=== PATIENT | female | born 1935 | race Hispanic/Latino ===

== ENCOUNTER 2016-08-15 07:15 | Inpatient (IN) | payer MEDICARE ==
[2016-08-15 07:15] VITALS: BMI 19.5
--- NOTE | 2016-08-15 07:27 | C.PDOC ---
History Of Present Illness 80-year-old female, PMHx includes Anxiety, Hypertension, Hypercholesterolemia, Hypothyroidism, Osteoporosis, and Seizures, presents to the emergency department accompanied by , with complaints of abdominal pain. reports patient developed recurring epigastric and left-upper quadrant abdominal pain yesterday. Patient took Bentyl w/ transient relief, and pain returned last night and "it feels worse than usual", resulting in her coming to the ED for evaluation. Patient notes that she has had this pain for the past several months, and it is intermittent in nature. Denies nausea/vomiting, diarrhea, melena, hematochezia, back pain, fevers, chills, shortness of breath, chest pain, dizziness, or any other associated symptoms. No other complaints at this time. PMD Dr. Julianna Li GI Dr. Brown Time Seen by Provider: 08/15/16 07:17 Chief Complaint (Nursing): Abdominal Pain History Per: Patient History/Exam Limitations: no limitations Onset/Duration Of Symptoms: Days Current Symptoms Are (Timing): Still Present Severity: Moderate Location Of Pain/Discomfort: Epigastric, LUQ Past Medical History Reviewed: Historical Data, Nursing Documentation, Vital Signs Vital Signs: Last Vital Signs Temp 97.6 F 08/16/16 07:00 Pulse 59 L 08/16/16 07:00 Resp 16 08/16/16 07:00 BP 179/77 H 08/16/16 07:00 Pulse Ox 99 08/16/16 07:00 - Medical History PMH: Anxiety, HTN, Hypercholesterolemia, Hypothyroidism, Osteoporosis, Seizures (LAST 2 WEEKS AGO) Denies: Chronic Kidney Disease Surgical History: Back Surgery - [facility] Procedures COLONOSCOPY (07/25/14) ESOPHAGOGASTRODUODENOSCOPY [EGD] W/CLOSED BIOPSY (07/25/14) Family History: States: Unknown Family Hx - Social History Hx Tobacco Use: No Hx Alcohol Use: No Hx Substance Use: No - Immunization History Hx Tetanus Toxoid Vaccination: No Hx Influenza Vaccination: Yes Hx Pneumococcal Vaccination: No Review Of Systems Except As Marked, All Systems Reviewed And Found Negative. Constitutional: Negative for: Fever, Chills Cardiovascular: Negative for: Chest Pain Gastrointestinal: Positive for: Abdominal Pain. Negative for: Nausea, Vomiting Genitourinary: Negative for: Dysuria, Frequency, Vaginal Discharge, Vaginal Bleeding Musculoskeletal: Negative for: Back Pain Skin: Negative for: Rash Neurological: Negative for: Weakness, Numbness, Headache, Dizziness Physical Exam - Physical Exam Appears: Non-toxic, No Acute Distress Skin: Warm, Dry, No Rash Head: Atraumatic, Normacephalic Eye(s): bilateral: Normal Inspection Nose: Normal Oral Mucosa: Moist Lips: Normal Appearing Neck: Normal ROM Chest: Symmetrical Cardiovascular: Rhythm Regular Respiratory: Normal Breath Sounds, No Accessory Muscle Use Gastrointestinal/Abdominal: Soft, Tenderness (MILD, EPIGASTRIC AND LUQ), No Distention, No Guarding, No Rebound Extremity: Normal ROM Neurological/Psych: Oriented x3, Normal Speech ED Course And Treatment - Laboratory Results Result Diagrams: 08/16/16 08:30 08/16/16 08:30 ECG: Interpreted By Me, Viewed By Me ECG Rhythm: Sinus Rhythm ECG Interpretation: No Acute Changes Interpretation Of ECst degree AV block Rate From EC - CT Scan/US CT ABD/PEL Other Rad Studies (CT/US): Read By Radiologist, Radiology Report Reviewed CT/US Interpretation: Accession No. : [id number]. Patient Name / ID : PAULA Bueno / [id number]. Exam Date : 08/15/2016 10:03:03 ( Approved ) . Study Comment : Sex / Age : F / [id number]. Creator : Александр Wu MD. Dictator : Александр Wu MD. Burr Sander : Roading Engineer : Александр Wu MD. Approver2 : Report Date : 08/15/2016 10:57:31. My Comment : . PROCEDURE: CT Abdomen and Pelvis with contrast. HISTORY: abd pain. COMPARISON: 03/20/2016. CT scan abdomen and pelvis. Summary of findings on the comparison examination: Stable cystic lesion 4.9 cm in the pancreas. 2012. The cystic mass the pancreas on the prior study in 2012 measured 2.6 x 3.9 cm. TECHNIQUE: Contrast dose: 100 cc Visipaque 320. Radiation dose: Total exam DLP = 1015.99. MGy-cm. FINDINGS: LOWER THORAX: Unremarkable. LIVER: Unremarkable. No gross lesion or ductal dilatation. GALLBLADDER AND BILE DUCTS: Unremarkable. PANCREAS: Stable well-circumscribed cystic mass body of the pancreas 4.2 x 5.4 cm. The pancreatic duct distal to the mass is dilated. The pancreatic duct proximal to the cystic mass is normal. Findings likely represent well-formed pseudocyst, less likely consideration would be cystic pancreatic neoplasm. SPLEEN: Unremarkable. ADRENALS: Unremarkable. No mass. KIDNEYS AND URETERS: Unremarkable. No hydronephrosis. No solid mass. VASCULATURE: Unremarkable. No aortic aneurysm. BOWEL: Segmental thickening of the descending colon, mild and accentuated by underfilling of the left hemicolon which is collapse, oral contrast has not yet reached the descending colon. Findings likely represent mild segmental colitis. More proximally, the transverse colon is spared. Less extensive involvement identified in the sigmoid and rectum. APPENDIX: Normal appendix. PERITONEUM: Unremarkable. No free fluid. No free air. LYMPH NODES: Unremarkable. No enlarged lymph nodes. BLADDER: Unremarkable. REPRODUCTIVE: Unremarkable. BONES: No acute fracture. Scoliosis, secondary degenerative change at multiple levels. OTHER FINDINGS: None. IMPRESSION: Left nieves colitis, mildly extending from the descending colon to the rectum and sigmoid. No focal abnormalities/ drainable collections/free or loculated air associated with this finding. Stable cystic mass in the pancreas. The mass is unchanged compared to the most recent study from March 20, 2016 although it has increased in size from 2013. Moreover, there is mild dilatation of the pancreatic duct distal to the cystic mass. Medical Decision Making Medical Decision Making: still w persistent nausea despite IVF and multiple doses of antiemetics disc w Dr Olivier who will admit Disposition - Disposition Disposition: HOSPITALIZED Disposition Time: 13:19 Condition: STABLE - Clinical Impression Clinical Impression: Colitis - Scribe Statement The provider has reviewed the documentation as recorded by the Marium Carney All medical record entries made by the Marium were at my direction and personally dictated by me. I have reviewed the chart and agree that the record accurately reflects my personal performance of the history, physical exam, medical decision making, and the department course for this patient. I have also personally directed, reviewed, and agree with the discharge instructions and disposition.
[2016-08-15] MEDS ORDERED: Iohexol 240 (50 ml) ONE (07:38)
[2016-08-15 08:35] LABS: CHLORIDE 93 mmol/L (98-107); POTASSIUM 3.3 mmol/L (3.6-5.2); SODIUM 138 mmol/L (132-148)
[2016-08-15 08:37] LABS: ALB/GLOB RATIO 1.3 (1.0-2.1); ALKALINE PHOSPHATASE 58 U/L (38-126); AST/SGOT 22 U/L (14-36); BILIRUBIN,TOTAL 0.4 mg/dL (0.2-1.3); CARBON DIOXIDE 31 mmol/L (22-30); GFR AFRICAN-AMERICAN > 60
[2016-08-15 08:38] LABS: ALT/SGPT 12 U/L (9-52); BLOOD UREA NITROGEN 11 mg/dL (7-17); GLUCOSE,RANDOM 85 mg/dL (65-105)
[2016-08-15] MEDS ORDERED: Iohexol 240 (50 ml) PO ONE (09:31)
[2016-08-15 09:42] LABS: BASO % 0.6 % (0.0-2.0); EOS % 0.7 % (0.0-4.0); HEMATOCRIT 33.8 % (34.0-47.0); LYMPH # 0.8 K/uL (1.0-4.3); LYMPH % 29.6 % (20.0-40.0); MEAN CELL VOLUME 91.5 fL (81.0-99.0); MEAN CORPUSCULAR HGB CONC 32.8 g/dL (33.0-37.0); MEAN PLATELET VOLUME 7.1 fL (7.2-11.7); MONO # 0.3 K/uL (0.0-0.8); MONO % 11.7 % (0.0-10.0); NRBC % 0.1 % (0.0-2.0); RED CELL DISTRIBUTION WIDTH 13.3 % (11.5-14.5); WHITE BLOOD COUNT 2.6 K/uL (4.8-10.8)
[2016-08-15] MEDS ORDERED: Iodixanol 320 MG/ML 100 ML BOTTLE IV ONE (09:45)
[2016-08-15 10:14] LABS: RBC URINE 3 /hpf (0-3); URINE BACTERIA RARE (<OCC); URINE BILIRUBIN NEGATIVE (NEGATIVE); URINE BLOOD 1+ (NEGATIVE); URINE COLOR Straw (YELLOW); URINE GLUCOSE (UA) NORMAL (Normal); URINE KETONE NEGATIVE (NEGATIVE); URINE LEUKOCYTE ESTERASE TRACE Leu/uL (Negative); URINE PROTEIN NEGATIVE (NEGATIVE); URINE UROBILINOGEN NORMAL mg/dL (0.2-1.0); WBC URINE 2 /hpf (0-5)
--- NOTE | 2016-08-15 10:59 | CT ---
PROCEDURE: CT Abdomen and Pelvis with contrast HISTORY: abd pain COMPARISON: 03/20/2016. CT scan abdomen and pelvis. Summary of findings on the comparison examination: Stable cystic lesion 4.9 cm in the pancreas. 08/19/2012. The cystic mass the pancreas on the prior study in 2012 measured 2.6 x 3.9 cm. TECHNIQUE: Contrast dose: 100 cc Visipaque 320. Radiation dose: Total exam DLP = 1015.99. MGy-cm. FINDINGS: LOWER THORAX: Unremarkable. LIVER: Unremarkable. No gross lesion or ductal dilatation. GALLBLADDER AND BILE DUCTS: Unremarkable. PANCREAS: Stable well-circumscribed cystic mass body of the pancreas 4.2 x 5.4 cm. The pancreatic duct distal to the mass is dilated. The pancreatic duct proximal to the cystic mass is normal. Findings likely represent well-formed pseudocyst, less likely consideration would be cystic pancreatic neoplasm. SPLEEN: Unremarkable. ADRENALS: Unremarkable. No mass. KIDNEYS AND URETERS: Unremarkable. No hydronephrosis. No solid mass. VASCULATURE: Unremarkable. No aortic aneurysm. BOWEL: Segmental thickening of the descending colon, mild and accentuated by underfilling of the left hemicolon which is collapse, oral contrast has not yet reached the descending colon. Findings likely represent mild segmental colitis. More proximally, the transverse colon is spared. Less extensive involvement identified in the sigmoid and rectum. APPENDIX: Normal appendix. PERITONEUM: Unremarkable. No free fluid. No free air. LYMPH NODES: Unremarkable. No enlarged lymph nodes. BLADDER: Unremarkable. REPRODUCTIVE: Unremarkable. BONES: No acute fracture. Scoliosis, secondary degenerative change at multiple levels. OTHER FINDINGS: None. IMPRESSION: Left nieves colitis, mildly extending from the descending colon to the rectum and sigmoid. No focal abnormalities/ drainable collections/free or loculated air associated with this finding. Stable cystic mass in the pancreas. The mass is unchanged compared to the most recent study from March 20, 2016 although it has increased in size from 2012. Moreover, there is mild dilatation of the pancreatic duct distal to the cystic mass.
[2016-08-15] MEDS ORDERED: Sodium Chloride 0.9% 1,000 ML IV ONE (11:25)
[2016-08-15] MEDS ORDERED: Sodium Chloride 0.9% 1,000 ML ONE (12:13)
[2016-08-15] MEDS: Sodium Chloride 0.9% 1,000 ML IV SCH (14:47)
[2016-08-15] MEDS: Metoprolol Succinate 50 mg XL Tab PO SCH (15:27)
[2016-08-15] MEDS ORDERED: Potassium Chloride 20 mEq ER Tab PO ONE ×2 (17:00→19:15)
[2016-08-15] MEDS: Pantoprazole 40 mg EC Tab PO SCH (20:00)
[2016-08-15] MEDS: cefTRIAXone IV 1 gm in Dextros 50 ML IVPB SCH (20:15)
--- NOTE | 2016-08-15 22:52 | CP.PCM.CON ---
History of Present Illness - History of Present Illness History of Present Illness: INFECTIOUS DISEASE CONSULT. HPI: .80-year-old female with known history off HTN, hypercholesterolemia, hypothyroidism, osteoporosis, seizure disorder, and anxiety who presented to [facility] with abdominal pain which she states was worse than before for one day prior to admission. Patient took Bentyl and had transient relief but pain returned which made her come to the ER for further evaluation. Patient states she has this pain off and on for past several months and is intermittent in nature. Denies any nausea vomiting, diarrhea, melena or hematochezia. Patient denies any fever or chills. Denies any cough shortness of breath, dizziness or any other associated symptoms at this time. PATIENT DENIES ANY LOSS OF WEIGHT, NIGHT SWEATS OR LOSS OF APPETITE. CT of the abdomen and pelvis with by mouth and IV contrast was obtained which showed left nieves-colitis extending from the descending colon to the rectum/ sigmoid. No drainable abscess or collection was seen. Cystic mass of size 2.6 into 3.9 cm was seen in pancreas which has been stable since last examination of March 20, 2016. Mild dilatation of pancreatic duct distal to the cystic mass was noted. Patient was empirically started on IV Rocephin once a day daily. INFECTIOUS DISEASE CONSULTATION REQUESTED BY PMD FOR ACUTE DIVERTICULITIS. PMH: Anxiety, HTN, Hypercholesterolemia, Hypothyroidism, Osteoporosis, Seizures (LAST 2 WEEKS AGO) Denies: Chronic Kidney Disease Surgical History: Back Surgery - [facility] Procedures COLONOSCOPY (07/25/14) ESOPHAGOGASTRODUODENOSCOPY [EGD] W/CLOSED BIOPSY (07/25/14) Family History: States: Unknown Family Hx - Social History Hx Tobacco Use: No Hx Alcohol Use: No Hx Substance Use: No - Immunization History Hx Tetanus Toxoid Vaccination: No Hx Influenza Vaccination: Yes Hx Pneumococcal Vaccination: No Review of Systems - Constitutional Constitutional: absent: Chills, Fever, Weight Loss - EENT Nose/Mouth/Throat: Dry Mouth. absent: Mouth Lesions - Breasts Breasts: absent: Nipple Discharge, Skin Changes - Cardiovascular Cardiovascular: absent: Chest Pain, Pedal Edema - Respiratory Respiratory: absent: Cough, Dyspnea, Hemoptysis, Change in Mucous Color - Gastrointestinal Gastrointestinal: Abdominal Pain (LOWER ABDOMINAL PAIN.). absent: Constipation , Diarrhea, Nausea, Vomiting - Genitourinary Genitourinary: absent: Dysuria, Freq UTI - Menstruation Menstruation: Post Menopausal - Neurological Neurological: absent: Dizziness, Headaches - Psychiatric Psychiatric: Anxiety - Hematologic/Lymphatic Hematologic: As Per HPI. absent: Easy Bleeding, Easy Bruising Past Patient History - Infectious Disease Hx of Infectious Diseases: None - Past Medical History & Family History Past Medical History?: Yes - Past Social History Smoking Status: Never Smoked - CARDIAC Hx Hypercholesterolemia: Yes Hx Hypertension: Yes - PULMONARY Hx Respiratory Disorders: No - NEUROLOGICAL Hx Seizures: Yes (LAST 2 WEEKS AGO) - HEENT Hx HEENT Problems: No - RENAL Hx Chronic Kidney Disease: No - ENDOCRINE/METABOLIC Hx Hypothyroidism: Yes - HEMATOLOGICAL/ONCOLOGICAL Hx Blood Disorders: No - INTEGUMENTARY Hx Dermatological Problems: No - MUSCULOSKELETAL/RHEUMATOLOGICAL Hx Osteoporosis: Yes - GASTROINTESTINAL Hx Gastrointestinal Disorders: Yes Hx Gastroesophageal Reflux: Yes Other/Comment: LUQ ABDOMINAL PAIN; NAUSEA, dizziness - PSYCHIATRIC Hx Anxiety: Yes Hx Substance Use: No - SURGICAL HISTORY Hx Surgeries: Yes Hx Musculoskeletal Surgery: Yes (2 BACK SURGERIES 30 YRS. AGO) - ANESTHESIA Hx Anesthesia: Yes Hx Anesthesia Reactions: No Hx Malignant Hyperthermia: No Meds Allergies/Adverse Reactions: Allergies Allergy/AdvReac Type Severity Reaction Status Date / Time Sulfa (Sulfonamide AdvReac Intermediate NAUSEA Verified 08/15/16 07:30 Antibiotics) - Medications Medications: Current Medications Alprazolam (Xanax) 0.25 mg PO DAILY PRN PRN Reason: Anxiety Stop: 08/22/16 15:11 Last Admin: 08/15/16 15:27 Dose: 0.25 mg Aspirin (Aspirin Chewable) 81 mg PO DAILY [facility] Enoxaparin Sodium (Lovenox) 40 mg SC DAILY [facility] Home Med (Fosamax) 1 tab PO QWK [facility] Sodium Chloride (Sodium Chloride 0.9%) 1,000 mls @ 100 mls/hr IV .Q10H [facility] Last Admin: 08/15/16 14:47 Dose: 100 mls/hr Ceftriaxone Sodium (Rocephin Iv 1 Gm Duplex) 50 mls @ 100 mls/hr IVPB Q24H [facility] Influenza Virus Vaccine (Afluria) 45 mcg IM .ONCE ONE Stop: 08/16/16 10:01 Lamotrigine (Lamictal) 200 mg PO BID [facility] Levothyroxine Sodium (Synthroid) 25 mcg PO DAILY@0630 [facility] Losartan Potassium (Cozaar) 50 mg PO HS [facility] Last Admin: 08/15/16 15:27 Dose: 50 mg Metoprolol Succinate (Toprol Xl) 50 mg PO DAILY [facility] Last Admin: 08/15/16 15:27 Dose: 50 mg Pantoprazole Sodium (Protonix Ec Tab) 40 mg PO DAILY [facility] Pneumococcal Polyvalent Vaccine (Pneumovax 23 Vaccine) 0.5 ml IM .ONCE ONE Stop: 08/16/16 10:01 Rosuvastatin Calcium (Crestor) 5 mg PO HS [facility] Sucralfate (Carafate Tab) 1 gm PO DAILY [facility] Physical Exam - Constitutional Appears: No Acute Distress - Head Exam Head Exam: NORMAL INSPECTION - Eye Exam Eye Exam: EOMI, PERRL - ENT Exam ENT Exam: Mucous Membranes Dry, Normal Oropharynx - Neck Exam Neck exam: Positive for: Normal Inspection - Respiratory Exam Respiratory Exam: Clear to Auscultation Bilateral - Cardiovascular Exam Cardiovascular Exam: REGULAR RHYTHM, +S1, +S2 - GI/Abdominal Exam GI & Abdominal Exam: Normal Bowel Sounds, Soft, Tenderness (LEFT LOWER QUADRANT. ). absent: Mass - Extremities Exam Extremities exam: Negative for: calf tenderness, pedal edema - Psychiatric Exam Psychiatric exam: Normal Mood - Skin Skin Exam: Normal Color, Warm Results - Vital Signs Recent Vital Signs: Last Vital Signs Temp 97.4 F L 08/15/16 15:00 Pulse 66 08/15/16 20:07 Resp 20 08/15/16 15:00 BP 180/81 H 08/15/16 15:00 Pulse Ox 99 08/15/16 15:00 - Labs Result Diagrams: 08/16/16 08:30 08/16/16 08:30 - Imaging and Cardiology CT scan - abdomen Status: Report reviewed by me (SEE REPORT) Assessment & Plan (1) Colitis Assessment and Plan: PANCULTURES STOOLS FOR OCCULT BLOOD. STARTED ON iv ROCEPHIN 1 G ONCE A DAY DAILY 08/15/16 ADD iv fLAGYL 250 MG EVERY 8 HOURLY FOR NOW FOR ANAEROBIC COVERAGE. 08/15/16 FOLLOW-UP BLOOD WORKS ORDERED. Status: Acute (2) Abdominal pain Status: Acute (3) Leukopenia Assessment and Plan: PATIENT HAS LEUKOPENIA wbc 2.6 pATIENT STARTED ON ANTIBIOTICS. fOLLOW-UP cbc IN A.M. Status: Acute (4) Labile hypertension Status: Acute (5) Low back pain Status: Acute (6) Cystic mass of pancreas Assessment and Plan: PATIENT HAS A STABLE CYSTIC MASS 2.6 CM X 3.9 CM IN PANCREAS UNCHANGED FROM CT SCAN OF MARCH 20, 2016. THERE IS MILD DILATATION OF PANCREATIC DUCT,DISTAL TO THE CYSTIC MASS. WILL DISCUSS WITH ATTENDING. CLOSE FOLLOW-UP/AND MONITOR ANY CHANGE IN SYMPTOMS. fOLLOW-UP SERUM LIPASE/AMYLASE IN A.M. Status: Acute
--- NOTE | 2016-08-15 23:55 | CP.PCM.HP ---
History of Present Illness - History of Present Illness History of Present Illness: COMPREHENSIVE HISTORY & PHYSICAL EXAM HPI ADMITTED FROM ER WITH LEFT SIDED ABD. PAIN , INCREASED IN INSTENSITY FROM 1 WEEK NOT A/W NAUSEA/VOMITING OR GI BLEEDING CT ABD. REVEALED LEFT DESCENDING COLITIS AND ADMITTED FOR FURTHER TREATMENT PAST HIST. HTN/HYPERRCHOLESTEROL/SEIZURES/BACK PAIN / PERSONAL HIST: Smoking. N Alcohol. N Allergy N Travel_- . FAMILY HIST : ROS : Constitutional: Negative for weight change, chills, night sweats, Eyes: Negative for redness, swelling, itching, discharge, vision changes, blurry vision, double vision, glaucoma, cataracts, Ears: Negative for hearing loss, ringing, , tinnitus, vertigo Nose: Negative for rhinorrhea, stuffiness, sniffing, itching, postnasal drip, discoloration, nasal congestion and epistaxis. Throat: Negative for throat clearing, sore throat, hoarseness, difficulty swallowing and difficulty speaking. Respiratory: Negative for cough, chest tightness, sputum or phlegm, chronic cough, hemoptysis, wheezing, snoring at night, pleuritic chest pain and daytime somnolence. Cardiovascular: Negative for chest pain, palpitations, orthopnea, PND, Edema of legs, leg cramps, angina, claudication, , irregular heartbeat, Neurology: Negative for irritability, muscle weakness, numbness and tingling, seizures, tremors, migraines, slurred speech, syncope, memory loss, mood changes , recurrent headaches Gastrointestinal: Negative for difficulty swallowing, diarrhea, constipation, black stools, rectal bleeding, nausea, flatulence, reflux, poor appetite, changes in bowel habits POS LEFT , abdominal pain Genitourinary: Negative for frequent urination, hematuria, discharge, incontinence, urinary retention, frequent UTI, Psychiatric: Negative for depression, anxiety/panic, suicidal tendencies, Musculoskeletal: Negative for swollen joints, back pain, , neck pain, morning stiffness of joints, . Skin: Negative for rash, ulcers, itching, dry skin and pigmented lesions. P/E: Constitutional: Appears stated age and in no apparent distress. Head: Normocephalic. Ears: External ear canals patent without inflammation. Tympanic membranes intact with normal light reflex and landmark. Eyes: Pupils are central, bilaterally equal, symmetrical and reacts to light with normal movements and no icterus or pallor. Nose: External nares are patent. Mucosa is pink Mouth-Throat: Good general appearance and condition. No post-pharyngeal/oropharyngeal erythema and tonsillar hypertrophy. Good dental hygiene. Neck-Lymphatic: Neck is supple with normal ROM, no thyromegaly, lymph nodes or masses. JVD is normal with no carotid bruit. Lungs: Clear to percussion and auscultation with bilateral normal air entry. Cardiovascular: S1 and S2 are normal with no murmurs, gallops and rub. GI Exam: No hepatomegaly. Abdomen is soft and TENDERNESS IN LEFT LOWER QUAD. . No Organomegaly , masses or hernias are evident and bowel sounds are normal and active. Neurology: Higher function and all cranial nerves intact, with no gross motor or sensory deficit. Superficial and deep reflexes are normal with downwards planters. No cerebellar deficit with normal gait. Musculoskeletal: No tender spots with normal curvature of the spine with no swelling or restricted ROM of the small and large joints. Extremities: Homans sign absent. Intact pulses with no pitting edema, calf tenderness or skin color changes. Skin: No rash, eruptions or abnormal skin pigmentation LAB/RADIOLOGY: ASSESMENT : LEFT DESCENDING COLITIS HTN PANCREATIC CYST, UNCHANGED FROM 2015 Past Patient History - Infectious Disease Hx of Infectious Diseases: None - Past Medical History & Family History Past Medical History?: Yes - Past Social History Smoking Status: Never Smoked - CARDIAC Hx Hypercholesterolemia: Yes Hx Hypertension: Yes - PULMONARY Hx Respiratory Disorders: No - NEUROLOGICAL Hx Seizures: Yes (LAST 2 WEEKS AGO) - HEENT Hx HEENT Problems: No - RENAL Hx Chronic Kidney Disease: No - ENDOCRINE/METABOLIC Hx Hypothyroidism: Yes - HEMATOLOGICAL/ONCOLOGICAL Hx Blood Disorders: No - INTEGUMENTARY Hx Dermatological Problems: No - MUSCULOSKELETAL/RHEUMATOLOGICAL Hx Osteoporosis: Yes - GASTROINTESTINAL Hx Gastrointestinal Disorders: Yes Hx Gastroesophageal Reflux: Yes Other/Comment: LUQ ABDOMINAL PAIN; NAUSEA, dizziness - PSYCHIATRIC Hx Anxiety: Yes Hx Substance Use: No - SURGICAL HISTORY Hx Surgeries: Yes Hx Musculoskeletal Surgery: Yes (2 BACK SURGERIES 30 YRS. AGO) - ANESTHESIA Hx Anesthesia: Yes Hx Anesthesia Reactions: No Hx Malignant Hyperthermia: No Meds Allergies/Adverse Reactions: Allergies Allergy/AdvReac Type Severity Reaction Status Date / Time Sulfa (Sulfonamide AdvReac Intermediate NAUSEA Verified 08/15/16 07:30 Antibiotics) Results - Vital Signs Recent Vital Signs: Last Vital Signs Temp 97.4 F L 08/15/16 15:00 Pulse 66 08/15/16 20:07 Resp 20 08/15/16 15:00 BP 180/81 H 08/15/16 15:00 Pulse Ox 99 08/15/16 15:00 - Labs Result Diagrams: 08/16/16 08:30 08/16/16 08:30
[2016-08-15] MEDS: metroNIDAZOLE IV 500 mg/100 ml 250 MG in Premixed IV 1 EA IVPB SCH (23:56)
[2016-08-16] MEDS: metroNIDAZOLE IV 500 mg/100 ml 250 MG in Premixed IV 1 EA IVPB SCH ×3 (05:47→21:35)
[2016-08-16] MEDS: Levothyroxine 25 MCG TAB PO SCH (05:47)
[2016-08-16 08:47] LABS: BASO % 0.4 % (0.0-2.0); EOS % 0.5 % (0.0-4.0); HEMATOCRIT 36.8 % (34.0-47.0); LYMPH # 0.7 K/uL (1.0-4.3); LYMPH % 21.1 % (20.0-40.0); MEAN CELL VOLUME 91.7 fL (81.0-99.0); MEAN CORPUSCULAR HEMOGLOBIN 30.2 pg (27.0-31.0); MEAN PLATELET VOLUME 7.2 fL (7.2-11.7); MONO # 0.2 K/uL (0.0-0.8); MONO % 7.9 % (0.0-10.0); NRBC % 0.1 % (0.0-2.0); RED CELL DISTRIBUTION WIDTH 13.2 % (11.5-14.5); WHITE BLOOD COUNT 3.1 K/uL (4.8-10.8)
[2016-08-16 09:05] LABS: CHLORIDE 95 mmol/L (98-107); POTASSIUM 3.9 mmol/L (3.6-5.2); SODIUM 137 mmol/L (132-148)
[2016-08-16 09:07] LABS: GFR AFRICAN-AMERICAN > 60
[2016-08-16 09:08] LABS: ALB/GLOB RATIO 1.2 (1.0-2.1); ALKALINE PHOSPHATASE 60 U/L (38-126); ALT/SGPT 16 U/L (9-52); AST/SGOT 28 U/L (14-36); BILIRUBIN,TOTAL 0.8 mg/dL (0.2-1.3); BLOOD UREA NITROGEN 6 mg/dL (7-17); CARBON DIOXIDE 29 mmol/L (22-30); GLUCOSE,RANDOM 77 mg/dL (65-105); TOTAL PROTEIN 7.3 g/dL (6.3-8.3)
[2016-08-16 09:09] LABS: CALCIUM 8.6 mg/dl (8.6-10.4)
[2016-08-16] MEDS ORDERED: Influenza Virus Vaccine 45 mcg/0.5 ml Syr IM ONE (10:00)
[2016-08-16] MEDS ORDERED: Enoxaparin 40 mg Syringe SC SCH (10:00)
[2016-08-16] MEDS ORDERED: Pantoprazole 40 mg EC Tab PO SCH (10:00)
[2016-08-16] MEDS ORDERED: Pneumococcal 23-Valent Vaccine IM ONE (10:00)
[2016-08-16] MEDS: Pantoprazole 40 mg EC Tab PO SCH (10:16)
[2016-08-16] MEDS: Metoprolol Succinate 50 mg XL Tab PO SCH (10:16)
[2016-08-16] MEDS: Sodium Chloride 0.9% 1,000 ML IV SCH ×3 (10:25→18:32)
--- NOTE | 2016-08-16 13:51 | CP.PCM.PN ---
Subjective - Date & Time of Evaluation Date of Evaluation: 08/16/16 Time of Evaluation: 13:49 - Subjective Subjective: CHIEF COMPLAINTS TODAY : LLQ PAIN WITH BACK PAIN ROS. HEENT : N. Resp : No cough, wheezing ,pleuritic CP ,or hemoptysis Cardio : No anginal CP, PND, orthopnea, palpitation GI : POS abd.pain, NO n/v ,diarrhea or GI bleeding . [employer] : No headache, vertigo, focal deficit. Musculoskel : No joint swelling , Derm : No rash Psych : Normal affect. Ext : No swelling ,calf pain PE. Pt. is alert awake in no distress. V.S As noted in the chart Head ,ear nose,throat and eyes : Normal. Neck : Supple with normal carotids. Lungs: Clear air entry. Heart : S1 & S2 normal with S4. No murmur. Abd : Soft tender LLQ with normal bowel sounds. Neuro : Moves all ext. with no localized deficit. Ext : No edema with intact pulses.Non tender calves Derm : No rashes or decubitus ulcer. LABS/RADIOLOGY: ASSESSMENT/PLAN : CONT IV AB Objective - Vital Signs/Intake and Output Vital Signs (last 24 hours): Temp Pulse Resp BP Pulse Ox 97.6 F 59 L 16 179/77 H 99 08/16/16 07:00 08/16/16 07:00 08/16/16 07:00 08/16/16 07:00 08/16/16 07:00 Intake and Output: 08/16/16 08/16/16 11:59 23:59 Intake Total 1040 Balance 1040 - Medications Medications: Current Medications Alprazolam (Xanax) 0.25 mg PO DAILY PRN PRN Reason: Anxiety Stop: 08/22/16 15:11 Last Admin: 08/15/16 15:27 Dose: 0.25 mg Aspirin (Aspirin Chewable) 81 mg PO DAILY [facility] Last Admin: 08/16/16 10:16 Dose: 81 mg Enoxaparin Sodium (Lovenox) 40 mg SC DAILY [facility] Last Admin: 08/16/16 10:16 Dose: 40 mg Home Med (Fosamax) 1 tab PO QWK [facility] Sodium Chloride (Sodium Chloride 0.9%) 1,000 mls @ 100 mls/hr IV .Q10H [facility] Last Admin: 03/25/17 10:25 Dose: Not Given Ceftriaxone Sodium (Rocephin Iv 1 Gm Duplex) 50 mls @ 100 mls/hr IVPB Q24H [facility] Last Admin: 08/15/16 20:15 Dose: 100 mls/hr Metronidazole 250 mg/ (Miscellaneous) 50 mls @ 100 mls/hr IVPB Q8 [facility] Last Admin: 08/16/16 05:47 Dose: 100 mls/hr Lamotrigine (Lamictal) 200 mg PO BID [facility] Last Admin: 08/16/16 10:16 Dose: 200 mg Levothyroxine Sodium (Synthroid) 25 mcg PO DAILY@0630 [facility] Last Admin: 08/16/16 05:47 Dose: 25 mcg Losartan Potassium (Cozaar) 50 mg PO HS [facility] Last Admin: 08/15/16 22:00 Dose: 50 mg Metoprolol Succinate (Toprol Xl) 50 mg PO DAILY [facility] Last Admin: 08/16/16 10:16 Dose: 50 mg Pantoprazole Sodium (Protonix Ec Tab) 40 mg PO DAILY [facility] Last Admin: 08/16/16 10:16 Dose: 40 mg Rosuvastatin Calcium (Crestor) 5 mg PO HS [facility] Sucralfate (Carafate Tab) 1 gm PO DAILY [facility] Last Admin: 08/16/16 10:16 Dose: 1 gm - Labs Labs: 08/16/16 08:30 08/16/16 08:30
--- NOTE | 2016-08-16 13:55 | CP.PCM.PN ---
Subjective - Date & Time of Evaluation Date of Evaluation: 08/16/16 Time of Evaluation: 13:55 - Subjective Subjective: CHIEF COMPLAINTS TODAY : C/O ABDOMINAL PAIN pain comes in spasms starts in mid abdomen to LLQ states also wt loss -10 lbs since last 1 year ROS. HEENT : N. Resp : No cough, wheezing ,pleuritic CP ,or hemoptysis Cardio : No anginal CP, PND, orthopnea, palpitation GI : POS abd.pain, NO n/v ,diarrhea or GI bleeding . 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 Musculoskel : No joint swelling , Derm : No rash Psych : Normal affect. Ext : No swelling ,calf pain PE. Pt. is alert awake in no distress. V.S As noted in the chart Head ,ear nose,throat and eyes : Normal. Neck : Supple with normal carotids. Lungs: Clear air entry. Heart : S1 & S2 normal with S4. No murmur. Abd : Soft TENDER MID ABDOMEN / LLQ with normal bowel sounds. NO MASSES PALPABLE. Neuro : Moves all ext. with no localized deficit. Ext : No edema with intact pulses.Non tender calves Derm : No rashes or decubitus ulcer. Objective - Vital Signs/Intake and Output Vital Signs (last 24 hours): Temp Pulse Resp BP Pulse Ox 97.6 F 59 L 16 179/77 H 99 08/16/16 07:00 08/16/16 07:00 08/16/16 07:00 08/16/16 07:00 08/16/16 07:00 Intake and Output: 08/16/16 08/16/16 06:59 18:59 Intake Total 2140 Balance 2140 - Medications Medications: Current Medications Alprazolam (Xanax) 0.25 mg PO DAILY PRN PRN Reason: Anxiety Stop: 08/22/16 15:11 Last Admin: 08/15/16 15:27 Dose: 0.25 mg Aspirin (Aspirin Chewable) 81 mg PO DAILY [facility] Last Admin: 08/16/16 10:16 Dose: 81 mg Enoxaparin Sodium (Lovenox) 40 mg SC DAILY [facility] Last Admin: 08/16/16 10:16 Dose: 40 mg Home Med (Fosamax) 1 tab PO QWK [facility] Sodium Chloride (Sodium Chloride 0.9%) 1,000 mls @ 100 mls/hr IV .Q10H [facility] Last Admin: 08/16/16 10:25 Dose: Not Given Ceftriaxone Sodium (Rocephin Iv 1 Gm Duplex) 50 mls @ 100 mls/hr IVPB Q24H [facility] Last Admin: 08/15/16 20:15 Dose: 100 mls/hr Metronidazole 250 mg/ (Miscellaneous) 50 mls @ 100 mls/hr IVPB Q8 [facility] Last Admin: 08/16/16 05:47 Dose: 100 mls/hr Lamotrigine (Lamictal) 200 mg PO BID [facility] Last Admin: 08/16/16 10:16 Dose: 200 mg Levothyroxine Sodium (Synthroid) 25 mcg PO DAILY@0630 [facility] Last Admin: 08/16/16 05:47 Dose: 25 mcg Losartan Potassium (Cozaar) 50 mg PO HS [facility] Last Admin: 08/15/16 22:00 Dose: 50 mg Metoprolol Succinate (Toprol Xl) 50 mg PO DAILY [facility] Last Admin: 08/16/16 10:16 Dose: 50 mg Pantoprazole Sodium (Protonix Ec Tab) 40 mg PO DAILY [facility] Last Admin: 08/16/16 10:16 Dose: 40 mg Rosuvastatin Calcium (Crestor) 5 mg PO [facility] Sucralfate (Carafate Tab) 1 gm PO DAILY [facility] Last Admin: 08/16/16 10:16 Dose: 1 gm - Labs Labs: 08/16/16 08:30 08/16/16 08:30 Assessment and Plan (1) Colitis Assessment & Plan: continue ON iv ROCEPHIN 1 G ONCE A DAY DAILY 08/15/16 on iv fLAGYL 250 MG EVERY 8 HOURLY FOR NOW FOR ANAEROBIC COVERAGE. 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 Status: Acute (2) Abdominal pain Status: Acute (3) Cystic mass of pancreas Assessment & Plan: CT ABDOMEN /PELVIS : Cystic mass of size 2.6 into 3.9 cm was seen in pancreas which has been stable since last examination of March 20, 2016. Mild dilatation of pancreatic duct distal to the cystic mass was noted. GI EVAL ! WILL DISCUSS WITH PMD. Status: Acute (4) Leukopenia Assessment & Plan: PATIENT HAS LEUKOPENIA wbc 2.6 pATIENT STARTED ON ANTIBIOTICS. WBC INCREASED TO 3.1 Status: Acute (5) Labile hypertension Status: Acute (6) Low back pain Status: Acute
--- NOTE | 2016-08-16 13:55 | CON ---
DATE: 08/16/2016 REASON FOR THE CONSULTATION: Seizures. CHIEF COMPLAINT: The patient was admitted with a history of abdominal pain related to her food intak e. I was called in to assess her seizure status. HISTORY OF PRESENT ILLNESS: The patient is a 80-year-old right-handed thinly built female w ho is known to me for more than 15 years, been under medication for her seizures, has been stable wit h the current medication. She was admitted with abdominal discomfort following greasy food or high c arbohydrate content food. At present, she is complaining of some nausea and stomach discomfort. PAST MEDICAL HISTORY: Colitis, seizures. PERSONAL HISTORY: Denies smoking or alcohol use. ALLERGIES: No known allergies. MEDICATIONS: Aspirin, Carafate, Cozaar, Crestor, Lamictal, Lovenox, metronidazole, Protonix, Rocephi n, Synthroid, metoprolol, and Xanax. PHYSICAL EXAMINATION: VITAL SIGNS: Blood pressure 110/77, mean arterial pressure 111, respiratory rate 16, temperature 97. 6, pulse rate regular. NECK: Supple. No carotid bruit. HEART: Sounds regular. CHEST: Fair air entry. EXTREMITIES: No edema in legs. NEUROLOGIC EXAMINATION: MENTAL STATUS EXAMINATION: She is awake, alert, oriented to person, place, and time. Speech is michelle r. Naming, repetition, fluency, comprehension all within normal. CRANIAL NERVE EXAMINATION: Visual field intact. Pupil reactive to light. Extraocular movements are normal. No nystagmus, no facial sensory deficit, no facial asymmetry. Hearing is normal. Tongue i s midline. Good gag. MOTOR EXAMINATION: Outstretched hands with eyes closed, no drift noted. Power is symmetric on eithe r side. DEEP TENDON REFLEXES: Biceps, brachioradialis, triceps 1+, both knees are 1+. Both ankles are absen t. Plantars are downgoing. SENSORY EXAMINATION: Grossly intact. No cortical sensory loss. COORDINATION: Padmtq-xdmr-ieegcy test is intact. GAIT: Deferred at this time. CONCLUSION: Upon reviewing her history and neurological examination, the patient is presenting with abdominal discomfort related to her underlying colitis. However, from neurological point of view, sh e is stable with her current medication. WORKUP: WBC 3.1, hemoglobin 12.1, hematocrit 36.8, platelet 209. Sodium 137, potassium 3.9, chlorid e 95, bicarbonate 29, BUN 6, creatinine 0.6, GFR more than 70, lipase 521. Urine 1+ blood. RECOMMENDATIONS: 1. Continue the present management, proper hydration. 2. Lamictal should be continued as current dosage. From neurological point of view, no further workup is needed. The patient will be followed closely w ольга alvarez while she is in the hospital from a neurological point of view. Jeremy Baird MD cc: [id number] TT: 08/16/2016 13:53:53 Confirmation # [id number] Dictation # [id number] linda
[2016-08-16] MEDS: cefTRIAXone IV 1 gm in Dextros 50 ML IVPB SCH (20:16)
[2016-08-17] MEDS: Sodium Chloride 0.9% 1,000 ML IV SCH ×3 (05:50→21:29)
[2016-08-17] MEDS: metroNIDAZOLE IV 500 mg/100 ml 250 MG in Premixed IV 1 EA IVPB SCH ×3 (06:25→21:29)
[2016-08-17] MEDS: Levothyroxine 25 MCG TAB PO SCH (06:34)
--- NOTE | 2016-08-17 06:45 | CARD ---
APPROVED REPORT EKG Measurement Heart [id number] <Conclusion> Sinus rhythm with 1st degree AV block Otherwise normal ECG
[2016-08-17 07:43] LABS: BASO % 0.5 % (0.0-2.0); EOS % 0.2 % (0.0-4.0); HEMATOCRIT 38.6 % (34.0-47.0); LYMPH # 0.8 K/uL (1.0-4.3); LYMPH % 16.9 % (20.0-40.0); MEAN CELL VOLUME 91.1 fL (81.0-99.0); MEAN CORPUSCULAR HEMOGLOBIN 30.5 pg (27.0-31.0); MEAN CORPUSCULAR HGB CONC 33.5 g/dL (33.0-37.0); MONO # 0.4 K/uL (0.0-0.8); MONO % 7.8 % (0.0-10.0); RED CELL DISTRIBUTION WIDTH 13.5 % (11.5-14.5)
[2016-08-17 08:19] LABS: CHLORIDE 95 mmol/L (98-107); POTASSIUM 3.6 mmol/L (3.6-5.2); SODIUM 135 mmol/L (132-148)
[2016-08-17 08:21] LABS: AST/SGOT 31 U/L (14-36); BILIRUBIN,TOTAL 0.6 mg/dL (0.2-1.3); CARBON DIOXIDE 23 mmol/L (22-30); GFR AFRICAN-AMERICAN > 60
[2016-08-17 08:22] LABS: ALB/GLOB RATIO 1.2 (1.0-2.1); ALKALINE PHOSPHATASE 66 U/L (38-126); ALT/SGPT 8 U/L (9-52); BLOOD UREA NITROGEN 5 mg/dL (7-17); CALCIUM 9.3 mg/dl (8.6-10.4); GLUCOSE,RANDOM 107 mg/dL (65-105); TOTAL PROTEIN 7.9 g/dL (6.3-8.3)
[2016-08-17] MEDS: Pantoprazole 40 mg EC Tab PO SCH (11:13)
[2016-08-17] MEDS: Metoprolol Succinate 50 mg XL Tab PO SCH (11:16)
[2016-08-17] MEDS: Enoxaparin 60 mg Syringe SC SCH (11:33)
--- NOTE | 2016-08-17 13:31 | PN ---
DATE: 08/17/2016 NEUROLOGICAL PROBLEM: Partial complex seizures. PHYSICAL EXAMINATION: VITAL SIGNS: Blood pressure 203/100, mean arterial pressure 134, respiratory rate 18, temperature 98 .1. Pulse rate is 73, regular. NEUROLOGIC: The patient is comfortably sitting in the chair. No new complaints. Tolerating okay with current medication for stomach pain and colitis. Her blood pressure is somewhat increased at this time. RECOMMENDATIONS: Blood pressure treatment as per her primary care physician. Continue the present m anagement. Jeremy Baird MD cc: [id number] TT: 08/17/2016 13:30:56 Confirmation # [id number] Dictation # [id number] en
--- NOTE | 2016-08-17 14:27 | CP.PCM.PN ---
Subjective - Date & Time of Evaluation Date of Evaluation: 08/17/16 Time of Evaluation: 14:25 - Subjective Subjective: CHIEF COMPLAINTS TODAY : LLQ PAIN WITH BACK PAIN NO N/V ROS. HEENT : N. Resp : No cough, wheezing ,pleuritic CP ,or hemoptysis Cardio : No anginal CP, PND, orthopnea, palpitation GI : POS abd.pain, NO n/v ,diarrhea or GI bleeding . 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 Musculoskel : No joint swelling , Derm : No rash Psych : Normal affect. Ext : No swelling ,calf pain PE. Pt. is alert awake in no distress. V.S As noted in the chart Head ,ear nose,throat and eyes : Normal. Neck : Supple with normal carotids. Lungs: Clear air entry. Heart : S1 & S2 normal with S4. No murmur. Abd : Soft tender LLQ with normal bowel sounds. Neuro : Moves all ext. with no localized deficit. Ext : No edema with intact pulses.Non tender calves Derm : No rashes or decubitus ulcer. LABS/RADIOLOGY: ASSESSMENT/PLAN : CONT IV AB Objective - Vital Signs/Intake and Output Vital Signs (last 24 hours): Temp Pulse Resp BP Pulse Ox 98.1 F 73 20 203/100 H 98 08/17/16 08:00 08/17/16 13:42 08/17/16 08:00 08/17/16 08:00 08/17/16 08:00 Intake and Output: 08/17/16 08/17/16 11:59 23:59 Intake Total 1040 1080 Balance 1040 1080 - Medications Medications: Current Medications Alprazolam (Xanax) 0.25 mg PO DAILY PRN PRN Reason: Anxiety Stop: 08/22/16 15:11 Last Admin: 08/17/16 04:17 Dose: 0.25 mg Aspirin (Aspirin Chewable) 81 mg PO DAILY [facility] Last Admin: 08/17/16 11:13 Dose: 81 mg Enoxaparin Sodium (Lovenox) 40 mg SC DAILY [facility] Last Admin: 08/17/16 11:33 Dose: 40 mg Home Med (Fosamax) 1 tab PO QWK [facility] Sodium Chloride (Sodium Chloride 0.9%) 1,000 mls @ 100 mls/hr IV .Q10H [facility] Last Admin: 08/17/16 05:50 Dose: Not Given Ceftriaxone Sodium (Rocephin Iv 1 Gm Duplex) 50 mls @ 100 mls/hr IVPB Q24H [facility] Last Admin: 08/16/16 20:16 Dose: 100 mls/hr Metronidazole 250 mg/ (Miscellaneous) 50 mls @ 100 mls/hr IVPB Q8 [facility] Last Admin: 08/17/16 14:16 Dose: 100 mls/hr Lamotrigine (Lamictal) 200 mg PO BID [facility] Last Admin: 08/17/16 11:13 Dose: 200 mg Levothyroxine Sodium (Synthroid) 25 mcg PO DAILY@0630 [facility] Last Admin: 08/17/16 06:34 Dose: 25 mcg Losartan Potassium (Cozaar) 50 mg PO HS [facility] Last Admin: 08/16/16 21:35 Dose: 50 mg Metoprolol Succinate (Toprol Xl) 50 mg PO DAILY [facility] Last Admin: 08/17/16 11:16 Dose: 50 mg Pantoprazole Sodium (Protonix Ec Tab) 40 mg PO DAILY [facility] Last Admin: 08/17/16 11:13 Dose: 40 mg Rosuvastatin Calcium (Crestor) 5 mg PO HS [facility] Last Admin: 08/16/16 21:35 Dose: 5 mg Sucralfate (Carafate Tab) 1 gm PO DAILY [facility] Last Admin: 08/17/16 11:16 Dose: 1 gm - Labs Labs: 08/17/16 07:09 08/17/16 07:09
--- NOTE | 2016-08-17 19:58 | CP.PCM.PN ---
Subjective - Date & Time of Evaluation Date of Evaluation: 08/17/16 Time of Evaluation: 19:58 - Subjective Subjective: CHIEF COMPLAINTS TODAY : C/O ABDOMINAL PAIN pain comes in spasms starts in mid abdomen to LLQ states also wt loss -10 lbs since last 1 year ROS. HEENT : N. Resp : No cough, wheezing ,pleuritic CP ,or hemoptysis Cardio : No anginal CP, PND, orthopnea, palpitation GI : POS ABDOMINAL PAIN, NO n/v ,diarrhea or GI bleeding . 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 Musculoskel : No joint swelling , Derm : No rash Psych : Normal affect. Ext : No swelling ,calf pain PE. Pt. is alert awake in no distress. V.S As noted in the chart Head ,ear nose,throat and eyes : Normal. Neck : Supple with normal carotids. Lungs: Clear air entry. Heart : S1 & S2 normal with S4. No murmur. Abd : Soft TENDER MID ABDOMEN / LLQ with normal bowel sounds. NO MASSES PALPABLE. Neuro : Moves all ext. with no localized deficit. Ext : No edema with intact pulses.Non tender calves Derm : No rashes or decubitus ulcer. Objective - Vital Signs/Intake and Output Vital Signs (last 24 hours): Temp Pulse Resp BP Pulse Ox 97.2 F L 68 20 164/92 H 100 08/17/16 16:00 08/17/16 17:00 08/17/16 16:00 08/17/16 17:50 08/17/16 16:00 Intake and Output: 08/17/16 08/18/16 18:59 06:59 Intake Total 2120 Balance 2120 - Medications Medications: Current Medications Alprazolam (Xanax) 0.25 mg PO DAILY PRN PRN Reason: Anxiety Stop: 08/22/16 15:11 Last Admin: 08/17/16 04:17 Dose: 0.25 mg Amlodipine Besylate (Norvasc) 10 mg PO DAILY [facility] Aspirin (Aspirin Chewable) 81 mg PO DAILY [facility] Last Admin: 08/17/16 11:13 Dose: 81 mg Enoxaparin Sodium (Lovenox) 40 mg SC DAILY [facility] Last Admin: 08/17/16 11:33 Dose: 40 mg Home Med (Fosamax) 1 tab PO QWK [facility] Sodium Chloride (Sodium Chloride 0.9%) 1,000 mls @ 100 mls/hr IV .Q10H [facility] Last Admin: 08/17/16 05:50 Dose: Not Given Ceftriaxone Sodium (Rocephin Iv 1 Gm Duplex) 50 mls @ 100 mls/hr IVPB Q24H [facility] Last Admin: 08/16/16 20:16 Dose: 100 mls/hr Metronidazole 250 mg/ (Miscellaneous) 50 mls @ 100 mls/hr IVPB Q8 [facility] Last Admin: 08/17/16 14:16 Dose: 100 mls/hr Lamotrigine (Lamictal) 200 mg PO BID [facility] Last Admin: 08/17/16 17:39 Dose: 200 mg Levothyroxine Sodium (Synthroid) 25 mcg PO DAILY@0630 [facility] Last Admin: 08/17/16 06:34 Dose: 25 mcg Losartan Potassium (Cozaar) 50 mg PO HS [facility] Last Admin: 08/16/16 21:35 Dose: 50 mg Metoprolol Succinate (Toprol Xl) 50 mg PO DAILY [facility] Last Admin: 08/17/16 11:16 Dose: 50 mg Pantoprazole Sodium (Protonix Ec Tab) 40 mg PO DAILY [facility] Last Admin: 08/17/16 11:13 Dose: 40 mg Rosuvastatin Calcium (Crestor) 5 mg PO HS [facility] Last Admin: 08/16/16 21:35 Dose: 5 mg Sucralfate (Carafate Tab) 1 gm PO DAILY [facility] Last Admin: 08/17/16 11:16 Dose: 1 gm - Labs Labs: 08/17/16 07:09 08/17/16 07:09 Assessment and Plan (1) Colitis Assessment & Plan: continue ON iv ROCEPHIN 1 G ONCE A DAY DAILY 08/15/16 on iv fLAGYL 250 MG EVERY 8 HOURLY FOR NOW FOR ANAEROBIC COVERAGE. 08/15/16 .BLOOD - CULTURES NEGATIVE. Status: Acute (2) Abdominal pain Status: Acute (3) Cystic mass of pancreas Assessment & Plan: +VE CYSTIC MASS -STABLE . Status: Acute (4) Leukopenia Status: Acute (5) Labile hypertension Status: Acute (6) Low back pain Status: Acute
[2016-08-17] MEDS: cefTRIAXone IV 1 gm in Dextros 50 ML IVPB SCH (20:12)
[2016-08-18] MEDS: Sodium Chloride 0.9% 1,000 ML IV SCH ×2 (01:30→10:30)
[2016-08-18] MEDS: metroNIDAZOLE IV 500 mg/100 ml 250 MG in Premixed IV 1 EA IVPB SCH ×3 (06:07→21:33)
[2016-08-18] MEDS: Levothyroxine 25 MCG TAB PO SCH (06:32)
[2016-08-18 07:57] LABS: BASO % 0.4 % (0.0-2.0); EOS % 0.3 % (0.0-4.0); HEMATOCRIT 38.2 % (34.0-47.0); LYMPH # 0.7 K/uL (1.0-4.3); LYMPH % 14.1 % (20.0-40.0); MEAN CELL VOLUME 90.1 fL (81.0-99.0); MEAN CORPUSCULAR HEMOGLOBIN 30.6 pg (27.0-31.0); MEAN PLATELET VOLUME 6.8 fL (7.2-11.7); MONO # 0.5 K/uL (0.0-0.8); MONO % 9.7 % (0.0-10.0); RED CELL DISTRIBUTION WIDTH 13.1 % (11.5-14.5); WHITE BLOOD COUNT 4.8 K/uL (4.8-10.8)
[2016-08-18 08:01] LABS: CHLORIDE 92 mmol/L (98-107); POTASSIUM 3.4 mmol/L (3.6-5.2); SODIUM 136 mmol/L (132-148)
[2016-08-18 08:03] LABS: ALB/GLOB RATIO 1.3 (1.0-2.1); ALKALINE PHOSPHATASE 59 U/L (38-126); AST/SGOT 37 U/L (14-36); BILIRUBIN,TOTAL 0.4 mg/dL (0.2-1.3); BLOOD UREA NITROGEN 8 mg/dL (7-17); CARBON DIOXIDE 30 mmol/L (22-30); GFR AFRICAN-AMERICAN > 60; TOTAL PROTEIN 7.3 g/dL (6.3-8.3)
[2016-08-18 08:04] LABS: ALT/SGPT 11 U/L (9-52); CALCIUM 9.1 mg/dl (8.6-10.4); GLUCOSE,RANDOM 95 mg/dL (65-105)
[2016-08-18] MEDS: Metoprolol Succinate 50 mg XL Tab PO SCH (10:02)
[2016-08-18] MEDS: Pantoprazole 40 mg EC Tab PO SCH (10:02)
[2016-08-18] MEDS: Enoxaparin 60 mg Syringe SC SCH (10:02)
--- NOTE | 2016-08-18 12:26 | CP.PCM.PN ---
Subjective - Date & Time of Evaluation Date of Evaluation: 08/18/16 Time of Evaluation: 12:25 - Subjective Subjective: CHIEF COMPLAINTS TODAY : LLQ PAIN WITH BACK PAIN NO N/V SYSTOLIC HTN ROS. HEENT : N. Resp : No cough, wheezing ,pleuritic CP ,or hemoptysis Cardio : No anginal CP, PND, orthopnea, palpitation GI : POS abd.pain, NO n/v ,diarrhea or GI bleeding . 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 Musculoskel : No joint swelling , Derm : No rash Psych : Normal affect. Ext : No swelling ,calf pain PE. Pt. is alert awake in no distress. V.S As noted in the chart Head ,ear nose,throat and eyes : Normal. Neck : Supple with normal carotids. Lungs: Clear air entry. Heart : S1 & S2 normal with S4. No murmur. Abd : Soft tender LLQ with normal bowel sounds. Neuro : Moves all ext. with no localized deficit. Ext : No edema with intact pulses.Non tender calves Derm : No rashes or decubitus ulcer. LABS/RADIOLOGY: ASSESSMENT/PLAN : CONT IV AB GI EVAL Objective - Vital Signs/Intake and Output Vital Signs (last 24 hours): Temp Pulse Resp BP Pulse Ox 97.8 F 74 20 134/75 98 08/18/16 08:00 08/18/16 08:00 08/18/16 08:00 08/18/16 08:00 08/18/16 08:00 Intake and Output: 08/18/16 08/18/16 11:59 23:59 Intake Total 920 Balance 920 - Medications Medications: Current Medications Alprazolam (Xanax) 0.25 mg PO DAILY PRN PRN Reason: Anxiety Stop: 08/22/16 15:11 Last Admin: 08/17/16 04:17 Dose: 0.25 mg Amlodipine Besylate (Norvasc) 10 mg PO DAILY [facility] Last Admin: 08/18/16 10:02 Dose: 10 mg Aspirin (Aspirin Chewable) 81 mg PO DAILY [facility] Last Admin: 08/18/16 10:02 Dose: 81 mg Enoxaparin Sodium (Lovenox) 40 mg SC DAILY [facility] Last Admin: 08/18/16 10:02 Dose: 40 mg Home Med (Fosamax) 1 tab PO QWK [facility] Sodium Chloride (Sodium Chloride 0.9%) 1,000 mls @ 100 mls/hr IV .Q10H [facility] Last Admin: 08/18/16 10:30 Dose: 100 mls/hr Ceftriaxone Sodium (Rocephin Iv 1 Gm Duplex) 50 mls @ 100 mls/hr IVPB Q24H [facility] Last Admin: 08/17/16 20:12 Dose: 100 mls/hr Metronidazole 250 mg/ (Miscellaneous) 50 mls @ 100 mls/hr IVPB Q8 [facility] Last Admin: 08/18/16 06:07 Dose: 100 mls/hr Lamotrigine (Lamictal) 200 mg PO BID [facility] Last Admin: 08/18/16 10:03 Dose: 200 mg Levothyroxine Sodium (Synthroid) 25 mcg PO DAILY@0630 [facility] Last Admin: 08/18/16 06:32 Dose: 25 mcg Losartan Potassium (Cozaar) 50 mg PO HS [facility] Last Admin: 08/17/16 21:30 Dose: 50 mg Metoprolol Succinate (Toprol Xl) 50 mg PO DAILY [facility] Last Admin: 08/18/16 10:02 Dose: 50 mg Pantoprazole Sodium (Protonix Ec Tab) 40 mg PO DAILY [facility] Last Admin: 08/18/16 10:02 Dose: 40 mg Rosuvastatin Calcium (Crestor) 5 mg PO HS [facility] Last Admin: 08/17/16 21:30 Dose: 5 mg Sucralfate (Carafate Tab) 1 gm PO DAILY [facility] Last Admin: 08/18/16 10:02 Dose: 1 gm - Labs Labs: 08/18/16 07:35 08/18/16 07:35
--- NOTE | 2016-08-18 14:57 | CP.PCM.CON ---
<Barbara Diaz - Last Filed: 08/18/16 15:45> History of Present Illness - History of Present Illness History of Present Illness: Gastroenterology Fellow/PGY4 Consult Note 80 year old female with history of Hypertension, Hyperlipidemia, seizures, Hypothyroidism, and Pancreatic body cystic lesion since 2014 presenting with abdominal pain. She describes chronic intermittent history of epigastric burning, throbbing pain with radiation to back associated with globus sensation of mucus and something stuck in throat previously treated with pancreatic enzymes (Donnazyme) per patient. She note acute onset of stomach spasms at umbilical area with radiation to left lower abdomen associated with globus sensation since Thursday, pain scale 5/10 and presently unchanged. She denies dysphagia, nausea, vomiting, hematemesis, hematochezia, melena, constipation, diarrhea, sick contacts, recent antibiotics/travel. Rare acid reflux and indigestion. Admits to fourteen pound weight loss in the last six months. Aware of history of pancreatic body cystic lesion on CT 07/2014 3.1x4.6cm with present CT showing 4.2x5.4cm pancreatic body lesion with associated pancreatic duct dilatation distal to the lesion. Patient endorses no further workup unless recommended by PCP. She notes her a week ago and daughter two years ago leading to anxiety and depression that she sometimes associates with globus sensation. Prior EGD and colonoscopy 07/2014 showing extrinsic fundic lesion with hyperplastic changes on biopsy with limited colonic evaluation at 80cm due to narrowing at proximal ascending colon. Family-denies colon cancer Social-denies tobacco, alcohol, illicit drug use Surgery-admits to prior left "disc?" surgery Review of Systems - Review of Systems Review of Systems: A 12-point review of systems negative except for as above Past Patient History - Infectious Disease Hx of Infectious Diseases: None - Past Medical History & Family History Past Medical History?: Yes - Past Social History Smoking Status: Never Smoked - CARDIAC Hx Hypercholesterolemia: Yes Hx Hypertension: Yes - PULMONARY Hx Respiratory Disorders: No - NEUROLOGICAL Hx Seizures: Yes (LAST 2 WEEKS AGO) - HEENT Hx HEENT Problems: No - RENAL Hx Chronic Kidney Disease: No - ENDOCRINE/METABOLIC Hx Hypothyroidism: Yes - HEMATOLOGICAL/ONCOLOGICAL Hx Blood Disorders: No - INTEGUMENTARY Hx Dermatological Problems: No - MUSCULOSKELETAL/RHEUMATOLOGICAL Hx Osteoporosis: Yes - GASTROINTESTINAL Hx Gastrointestinal Disorders: Yes Hx Gastroesophageal Reflux: Yes Other/Comment: LESLIEQ ABDOMINAL PAIN; NAUSEA, dizziness - PSYCHIATRIC Hx Anxiety: Yes Hx Substance Use: No - SURGICAL HISTORY Hx Surgeries: Yes Hx Musculoskeletal Surgery: Yes (2 BACK SURGERIES 30 YRS. AGO) - ANESTHESIA Hx Anesthesia: Yes Hx Anesthesia Reactions: No Hx Malignant Hyperthermia: No Meds Allergies/Adverse Reactions: Allergies Allergy/AdvReac Type Severity Reaction Status Date / Time Sulfa (Sulfonamide AdvReac Intermediate NAUSEA Verified 08/15/16 07:30 Antibiotics) - Medications Medications: Current Medications Alprazolam (Xanax) 0.25 mg PO DAILY PRN PRN Reason: Anxiety Stop: 08/22/16 15:11 Last Admin: 08/17/16 04:17 Dose: 0.25 mg Amlodipine Besylate (Norvasc) 10 mg PO DAILY [facility] Last Admin: 08/18/16 10:02 Dose: 10 mg Aspirin (Aspirin Chewable) 81 mg PO DAILY [facility] Last Admin: 08/18/16 10:02 Dose: 81 mg Enoxaparin Sodium (Lovenox) 40 mg SC DAILY [facility] Last Admin: 08/18/16 10:02 Dose: 40 mg Home Med (Fosamax) 1 tab PO QWK [facility] Ceftriaxone Sodium (Rocephin Iv 1 Gm Duplex) 50 mls @ 100 mls/hr IVPB Q24H [facility] Last Admin: 08/17/16 20:12 Dose: 100 mls/hr Metronidazole 250 mg/ (Miscellaneous) 50 mls @ 100 mls/hr IVPB Q8 [facility] Last Admin: 08/18/16 14:11 Dose: 100 mls/hr Lamotrigine (Lamictal) 200 mg PO BID [facility] Last Admin: 08/18/16 10:03 Dose: 200 mg Levothyroxine Sodium (Synthroid) 25 mcg PO DAILY@0630 [facility] Last Admin: 08/18/16 06:32 Dose: 25 mcg Losartan Potassium (Cozaar) 50 mg PO HS [facility] Last Admin: 08/17/16 21:30 Dose: 50 mg Metoprolol Succinate (Toprol Xl) 50 mg PO DAILY [facility] Last Admin: 08/18/16 10:02 Dose: 50 mg Pantoprazole Sodium (Protonix Ec Tab) 40 mg PO DAILY [facility] Last Admin: 08/18/16 10:02 Dose: 40 mg Rosuvastatin Calcium (Crestor) 5 mg PO HS [facility] Last Admin: 08/17/16 21:30 Dose: 5 mg Sucralfate (Carafate Tab) 1 gm PO DAILY [facility] Last Admin: 08/18/16 10:02 Dose: 1 gm Physical Exam - Constitutional Appears: Non-toxic, No Acute Distress - Head Exam Head Exam: ATRAUMATIC, NORMOCEPHALIC - Eye Exam Eye Exam: EOMI, PERRL Pupil Exam: PERRL. absent: Miosis, Mydriatic - ENT Exam ENT Exam: Mucous Membranes Moist, Normal Oropharynx - Neck Exam Neck exam: Positive for: Full Rom, Normal Inspection - Respiratory Exam Respiratory Exam: Clear to Auscultation Bilateral. absent: Rales, Rhonchi, Wheezes - Cardiovascular Exam Cardiovascular Exam: RRR, +S1, +S2. absent: Gallop, Rubs - GI/Abdominal Exam GI & Abdominal Exam: Normal Bowel Sounds, Soft, Tenderness. absent: Distended, Firm, Guarding, Mass, Organomegaly, Rebound, Rigid Additional comments: epigastric and LLQ tenderness - Extremities Exam Extremities exam: Positive for: full ROM. Negative for: pedal edema - Neurological Exam Neurological exam: Alert, Oriented x3 - Psychiatric Exam Psychiatric exam: Normal Affect, Normal Mood - Skin Skin Exam: Dry, Intact, Normal Color, Warm Results - Vital Signs Recent Vital Signs: Last Vital Signs Temp 97.8 F 08/18/16 08:00 Pulse 74 08/18/16 08:00 Resp 20 08/18/16 08:00 BP 134/75 08/18/16 08:00 Pulse Ox 98 08/18/16 08:00 - Labs Result Diagrams: 08/18/16 07:35 08/18/16 07:35 Labs: Laboratory Results - last 24 hr 08/18/16 07:35 WBC 4.8 RBC 4.24 Hgb 13.0 Hct 38.2 MCV 90.1 MCH 30.6 MCHC 34.0 RDW 13.1 Plt Count 222 MPV 6.8 L Neut % (Auto) 75.5 H Lymph % (Auto) 14.1 L [place] % (Auto) 9.7 Eos % (Auto) 0.3 Baso % (Auto) 0.4 Neut # 3.6 Lymph # 0.7 L [place] # 0.5 Eos # 0.0 Baso # 0.0 Sodium 136 Potassium 3.4 L Chloride 92 L Carbon Dioxide 30 Anion Gap 17 BUN 8 Creatinine 0.6 L Est GFR ( Amer) > 60 Est GFR (Non-Af Amer) > 60 Random Glucose 95 Calcium 9.1 Total Bilirubin 0.4 AST 37 H ALT 11 Alkaline Phosphatase 59 Total Protein 7.3 Albumin 4.1 Globulin 3.2 Albumin/Globulin Ratio 1.3 Lipase 770 H Assessment & Plan - Assessment and Plan (Free Text) Assessment: 80 year old female with history of Hypertension, Hyperlipidemia, seizures, Hypothyroidism, and Pancreatic body cystic lesion since 2014 presenting with epigastric and LLQ abdominal pain. History of pancreatic body cystic lesion on CT 07/2014 3.1x4.6cm with present CT showing 4.2x5.4cm pancreatic body lesion, associated distal pancreatic duct dilatation and left sided colitis of descending/sigmoid/rectum. Prior EGD and colonoscopy 07/2014 showing extrinsic fundic lesion with hyperplastic changes on biopsy with limited colonic evaluation at 80cm due to narrowing at proximal ascending colon. Plan: >continue supportive care >changed to liquid diet >continue supportive care: pain control, antiemetics, PPI >continue Ceftriaxone/Flagyl >ordered stool culture, Cdiff >consider EGD if globus sensation persist >patient expresses request for medical management of symptoms unless further imaging/procedures recommended by PCP >will discuss treatment plan with PCP, would benefit from EUS for further evaluation of pancreatic lesion <Akira Eldridge - Last Filed: 08/18/16 16:15> Meds - Medications Medications: Current Medications Alprazolam (Xanax) 0.25 mg PO DAILY PRN PRN Reason: Anxiety Stop: 08/22/16 15:11 Last Admin: 08/17/16 04:17 Dose: 0.25 mg Amlodipine Besylate (Norvasc) 10 mg PO DAILY [facility] Last Admin: 08/18/16 10:02 Dose: 10 mg Aspirin (Aspirin Chewable) 81 mg PO DAILY [facility] Last Admin: 08/18/16 10:02 Dose: 81 mg Enoxaparin Sodium (Lovenox) 40 mg SC DAILY [facility] Last Admin: 08/18/16 10:02 Dose: 40 mg Home Med (Fosamax) 1 tab PO QWK [facility] Ceftriaxone Sodium (Rocephin Iv 1 Gm Duplex) 50 mls @ 100 mls/hr IVPB Q24H [facility] Last Admin: 08/17/16 20:12 Dose: 100 mls/hr Metronidazole 250 mg/ (Miscellaneous) 50 mls @ 100 mls/hr IVPB Q8 [facility] Last Admin: 08/18/16 14:11 Dose: 100 mls/hr Lamotrigine (Lamictal) 200 mg PO BID [facility] Last Admin: 08/18/16 10:03 Dose: 200 mg Levothyroxine Sodium (Synthroid) 25 mcg PO DAILY@0630 [facility] Last Admin: 08/18/16 06:32 Dose: 25 mcg Losartan Potassium (Cozaar) 50 mg PO HS [facility] Last Admin: 08/17/16 21:30 Dose: 50 mg Metoprolol Succinate (Toprol Xl) 50 mg PO DAILY [facility] Last Admin: 08/18/16 10:02 Dose: 50 mg Pantoprazole Sodium (Protonix Ec Tab) 40 mg PO DAILY [facility] Last Admin: 08/18/16 10:02 Dose: 40 mg Rosuvastatin Calcium (Crestor) 5 mg PO [facility] Last Admin: 08/17/16 21:30 Dose: 5 mg Sucralfate (Carafate Tab) 1 gm PO DAILY [facility] Last Admin: 08/18/16 10:02 Dose: 1 gm Results - Vital Signs Recent Vital Signs: Last Vital Signs Temp 97.8 F 08/18/16 08:00 Pulse 74 08/18/16 08:00 Resp 20 08/18/16 08:00 BP 134/75 08/18/16 08:00 Pulse Ox 98 08/18/16 08:00 - Labs Result Diagrams: 08/18/16 07:35 08/18/16 07:35 Labs: Laboratory Results - last 24 hr 08/18/16 07:35 WBC 4.8 RBC 4.24 Hgb 13.0 Hct 38.2 MCV 90.1 MCH 30.6 MCHC 34.0 RDW 13.1 Plt Count 222 MPV 6.8 L Neut % (Auto) 75.5 H Lymph % (Auto) 14.1 L [place] % (Auto) 9.7 Eos % (Auto) 0.3 Baso % (Auto) 0.4 Neut # 3.6 Lymph # 0.7 L [place] # 0.5 Eos # 0.0 Baso # 0.0 Sodium 136 Potassium 3.4 L Chloride 92 L Carbon Dioxide 30 Anion Gap 17 BUN 8 Creatinine 0.6 L Est GFR ( Amer) > 60 Est GFR (Non-Af Amer) > 60 Random Glucose 95 Calcium 9.1 Total Bilirubin 0.4 AST 37 H ALT 11 Alkaline Phosphatase 59 Total Protein 7.3 Albumin 4.1 Globulin 3.2 Albumin/Globulin Ratio 1.3 Lipase 770 H Attending/Attestation - Attestation I have personally seen and examined this patient.: Yes I have fully participated in the care of the patient.: Yes I have reviewed all pertinent clinical information: Yes Notes (Text): 08/18/16 16:07 I have seen and examined patient with GI fellow. Agree with above documentation with the following additions. In brief, this is a 80 year old female with history of HTN, hyperlipidemia, hypothyroidism, pancreatic lesion, who presents to hospital with complaint of abdominal pain. She describes a sharp, 6/10 intensity LLQ abdominal pain that is non-radiating and worse with movement which began 3 days ago. The pain was not associated with nausea, vomiting, diarrhea, fever/chills, or rectal bleeding. She denies recent antibiotic use, sick contacts, or travel history. She also notes an intermittent globus sensation that has gotten worse recently with anxiety. She had an EGD/colonoscopy in 2014 which showed fundic lesion, ?extrinsic compression and incomplete colonoscopy. She also endorses a weight loss of approximately 14 pounds over past one month. Finally, she is aware of her pancreatic lesion over the past several years and claims to have had further evaluation performed at [facility] [place] though is unclear regarding exactly what was done. HTN Hyperlipidemia Hypothyroidism Pancreatic lesion Abdominal pain - colitis CT imaging reviewed by me showing segmental colitis and stable appearance of pancreatic cystic lesion with associated PD dilation as compared to prior imaging, though overall increased in size compared to 2013 - Continue with antibiotic therapy as per ID - Full liquid diet as tolerated - Obtain stool studies - Patient would benefit from repeat endoscopic evaluation (EGD/colonoscopy) given unexplained weight loss and abnormal endoscopic findings from 2015. Would defer colonoscopy for time being given presence of colitis, though she should have procedure done within 6-8 weeks following resolution of acute symptoms. Additionally, she would benefit from EUS examination of the pancreas if that has not already been performed at outside institution. Will attempt to obtain records from [facility]. - Will continue to monitor patient clinical course
--- NOTE | 2016-08-18 18:47 | CP.PCM.PN ---
Subjective - Date & Time of Evaluation Date of Evaluation: 08/18/16 Time of Evaluation: 18:47 - Subjective Subjective: CHIEF COMPLAINTS TODAY : STATES ABDOMINAL PAIN MUCH IMPROVED denies nausea or vomiting. Lipase elevated to 770. seen by GI ROS. HEENT : N. Resp : No cough, wheezing ,pleuritic CP ,or hemoptysis Cardio : No anginal CP, PND, orthopnea, palpitation GI : POS ABDOMINAL PAIN, NO n/v ,diarrhea or GI bleeding . [employer]IAN : No headache, vertigo, focal deficit. Musculoskel : No joint swelling , Derm : No rash Psych : Normal affect. Ext : No swelling ,calf pain PE. Pt. is alert awake in no distress. V.S As noted in the chart Head ,ear nose,throat and eyes : Normal. Neck : Supple with normal carotids. Lungs: Clear air entry. Heart : S1 & S2 normal with S4. No murmur. Abd : Soft LESS TENDERNESS MID ABDOMEN / LLQ with normal bowel sounds. NO MASSES PALPABLE. Neuro : Moves all ext. with no localized deficit. Ext : No edema with intact pulses.Non tender calves Derm : No rashes or decubitus ulcer. Objective - Vital Signs/Intake and Output Vital Signs (last 24 hours): Temp Pulse Resp BP Pulse Ox 97.4 F L 80 19 148/77 96 08/18/16 15:21 08/18/16 15:21 08/18/16 15:21 08/18/16 15:21 08/18/16 15:21 - Medications Medications: Current Medications Alprazolam (Xanax) 0.25 mg PO DAILY PRN PRN Reason: Anxiety Stop: 08/22/16 15:11 Last Admin: 08/17/16 04:17 Dose: 0.25 mg Amlodipine Besylate (Norvasc) 10 mg PO DAILY [facility] Last Admin: 08/18/16 10:02 Dose: 10 mg Aspirin (Aspirin Chewable) 81 mg PO DAILY [facility] Last Admin: 08/18/16 10:02 Dose: 81 mg Enoxaparin Sodium (Lovenox) 40 mg SC DAILY [facility] Last Admin: 08/18/16 10:02 Dose: 40 mg Home Med (Fosamax) 1 tab PO QWK [facility] Ceftriaxone Sodium (Rocephin Iv 1 Gm Duplex) 50 mls @ 100 mls/hr IVPB Q24H [facility] Last Admin: 08/17/16 20:12 Dose: 100 mls/hr Metronidazole 250 mg/ (Miscellaneous) 50 mls @ 100 mls/hr IVPB Q8 [facility] Last Admin: 08/18/16 14:11 Dose: 100 mls/hr Lamotrigine (Lamictal) 200 mg PO BID [facility] Last Admin: 08/18/16 17:58 Dose: 200 mg Levothyroxine Sodium (Synthroid) 25 mcg PO DAILY@0630 [facility] Last Admin: 08/18/16 06:32 Dose: 25 mcg Losartan Potassium (Cozaar) 50 mg PO HS [facility] Last Admin: 08/17/16 21:30 Dose: 50 mg Metoprolol Succinate (Toprol Xl) 50 mg PO DAILY [facility] Last Admin: 08/18/16 10:02 Dose: 50 mg Pantoprazole Sodium (Protonix Ec Tab) 40 mg PO DAILY [facility] Last Admin: 08/18/16 10:02 Dose: 40 mg Rosuvastatin Calcium (Crestor) 5 mg PO [facility] Last Admin: 08/17/16 21:30 Dose: 5 mg Sucralfate (Carafate Tab) 1 gm PO DAILY [facility] Last Admin: 08/18/16 10:02 Dose: 1 gm Assessment and Plan (1) Colitis Assessment & Plan: continue ON iv ROCEPHIN 1 G ONCE A DAY DAILY 08/15/16 ON iv fLAGYL 250 MG EVERY 8 HOURLY FOR NOW FOR ANAEROBIC COVERAGE. 08/15/16 BLOOD - CULTURES NEGATIVE TO DATE. PATIENT BEING SCHEDULED BY GI FOR EGD. COLONOSCOPY OPD Status: Acute (2) Abdominal pain Status: Acute (3) Cystic mass of pancreas Assessment & Plan: +VE CYSTIC MASS PANCREAS. ELEVATED LIPASE. GI ON CASE -RECOMMENDATION NOTED. Status: Acute (4) Leukopenia Assessment & Plan: 08/18/16; wbc 4.8 STILL LEUKOPENIC Status: Acute (5) Labile hypertension Status: Acute (6) Low back pain Status: Acute
[2016-08-18] MEDS: cefTRIAXone IV 1 gm in Dextros 50 ML IVPB SCH (21:33)
[2016-08-19] MEDS: Levothyroxine 25 MCG TAB PO SCH (05:32)
[2016-08-19] MEDS: metroNIDAZOLE IV 500 mg/100 ml 250 MG in Premixed IV 1 EA IVPB SCH (05:32)
[2016-08-19 07:58] LABS: BASO % 0.6 % (0.0-2.0); EOS % 0.3 % (0.0-4.0); HEMATOCRIT 35.1 % (34.0-47.0); LYMPH # 0.6 K/uL (1.0-4.3); LYMPH % 16.8 % (20.0-40.0); MEAN CELL VOLUME 89.8 fL (81.0-99.0); MEAN CORPUSCULAR HEMOGLOBIN 30.6 pg (27.0-31.0); MEAN CORPUSCULAR HGB CONC 34.1 g/dL (33.0-37.0); MEAN PLATELET VOLUME 6.9 fL (7.2-11.7); MONO # 0.4 K/uL (0.0-0.8); RED CELL DISTRIBUTION WIDTH 13.2 % (11.5-14.5); WHITE BLOOD COUNT 3.5 K/uL (4.8-10.8)
[2016-08-19 08:11] LABS: CHLORIDE 95 mmol/L (98-107); POTASSIUM 3.4 mmol/L (3.6-5.2); SODIUM 138 mmol/L (132-148)
[2016-08-19 08:13] LABS: ALB/GLOB RATIO 1.2 (1.0-2.1); ALKALINE PHOSPHATASE 54 U/L (38-126); AST/SGOT 95 U/L (14-36); BILIRUBIN,TOTAL 0.3 mg/dL (0.2-1.3); CARBON DIOXIDE 29 mmol/L (22-30); GFR AFRICAN-AMERICAN > 60; TOTAL PROTEIN 6.5 g/dL (6.3-8.3)
[2016-08-19 08:14] LABS: ALT/SGPT 31 U/L (9-52); BLOOD UREA NITROGEN 6 mg/dL (7-17); CALCIUM 8.6 mg/dl (8.6-10.4); GLUCOSE,RANDOM 86 mg/dL (65-105)
--- NOTE | 2016-08-19 08:27 | CP.PCM.PN ---
<Barbara Diaz - Last Filed: 08/19/16 08:23> Subjective - Date & Time of Evaluation Date of Evaluation: 08/19/16 Time of Evaluation: 08:23 - Subjective Subjective: Gastroenterology Fellow/PGY4 Progress Note Patient notes resolved epigastric pain. Does admit to mild epigastric soreness. Tolerating full liquids. No bowel movement in four to five days. A 12-point review of systems negative except for as above. Objective - Vital Signs/Intake and Output Vital Signs (last 24 hours): Temp Pulse Resp BP Pulse Ox 97.5 F L 81 20 141/75 98 08/18/16 23:45 08/18/16 23:45 08/18/16 23:45 08/18/16 23:45 08/18/16 23:45 Intake and Output: 08/19/16 08/19/16 06:59 18:59 Intake Total 1050 Balance 1050 - Medications Medications: Current Medications Alprazolam (Xanax) 0.25 mg PO DAILY PRN PRN Reason: Anxiety Stop: 08/22/16 15:11 Last Admin: 08/17/16 04:17 Dose: 0.25 mg Amlodipine Besylate (Norvasc) 10 mg PO DAILY [facility] Last Admin: 08/18/16 10:02 Dose: 10 mg Aspirin (Aspirin Chewable) 81 mg PO DAILY [facility] Last Admin: 08/18/16 10:02 Dose: 81 mg Enoxaparin Sodium (Lovenox) 40 mg SC DAILY [facility] Last Admin: 08/18/16 10:02 Dose: 40 mg Home Med (Fosamax) 1 tab PO QWK [facility] Ceftriaxone Sodium (Rocephin Iv 1 Gm Duplex) 50 mls @ 100 mls/hr IVPB Q24H [facility] Last Admin: 08/18/16 21:33 Dose: 100 mls/hr Metronidazole 250 mg/ (Miscellaneous) 50 mls @ 100 mls/hr IVPB Q8 [facility] Last Admin: 08/19/16 05:32 Dose: 100 mls/hr Lamotrigine (Lamictal) 200 mg PO BID [facility] Last Admin: 08/18/16 17:58 Dose: 200 mg Levothyroxine Sodium (Synthroid) 25 mcg PO DAILY@0630 [facility] Last Admin: 08/19/16 05:32 Dose: 25 mcg Losartan Potassium (Cozaar) 50 mg PO HS [facility] Last Admin: 08/18/16 21:34 Dose: 50 mg Metoprolol Succinate (Toprol Xl) 50 mg PO DAILY [facility] Last Admin: 08/18/16 10:02 Dose: 50 mg Pantoprazole Sodium (Protonix Ec Tab) 40 mg PO DAILY [facility] Last Admin: 08/18/16 10:02 Dose: 40 mg Rosuvastatin Calcium (Crestor) 5 mg PO [facility] Last Admin: 08/18/16 21:34 Dose: 5 mg Sucralfate (Carafate Tab) 1 gm PO DAILY [facility] Last Admin: 08/18/16 10:02 Dose: 1 gm - Labs Labs: 08/19/16 07:48 08/19/16 07:48 - Constitutional Appears: Non-toxic, No Acute Distress - Head Exam Head Exam: ATRAUMATIC, NORMOCEPHALIC - Eye Exam Eye Exam: EOMI, PERRL Pupil Exam: PERRL. absent: Miosis, Mydriatic - ENT Exam ENT Exam: Mucous Membranes Moist, Normal Oropharynx - Neck Exam Neck Exam: Full ROM, Normal Inspection - Respiratory Exam Respiratory Exam: Clear to Ausculation Bilateral. absent: Rales, Rhonchi, Wheezes - Cardiovascular Exam Cardiovascular Exam: RRR, +S1, +S2. absent: Gallop, Rubs - GI/Abdominal Exam GI & Abdominal Exam: Soft, Normal Bowel Sounds. absent: Distended, Firm, Guarding, Rigid, Tenderness, Mass, Organomegaly, Rebound - Extremities Exam Extremities Exam: Normal Inspection. absent: Pedal Edema - Neurological Exam Neurological Exam: Alert, Awake - Psychiatric Exam Psychiatric exam: Normal Affect, Normal Mood - Skin Skin Exam: Dry, Intact, Normal Color, Warm Assessment and Plan - Assessment and Plan (Free Text) Assessment: 80 year old female with history of Hypertension, Hyperlipidemia, seizures, Hypothyroidism, and Pancreatic body cystic lesion since 2014 presenting with epigastric and LLQ abdominal pain. History of pancreatic body cystic lesion on CT 07/2014 3.1x4.6cm with present CT showing 4.2x5.4cm pancreatic body lesion, associated distal pancreatic duct dilatation and left sided colitis of descending/sigmoid/rectum. Prior EGD and colonoscopy 07/2014 showing extrinsic fundic lesion with hyperplastic changes on biopsy with limited colonic evaluation at 80cm due to narrowing at proximal ascending colon. Plan: >advance to regular diet >pending stool culture, Cdiff >continue Ceftriaxone/Flagyl >may consider oral antibiotic course completion outpatient >no indication for endoscopic evaluation >will discuss plan with primary team and prior workup of pancreatic mass at [facility] [place] endorsed by patient >counselled on outpatient follow up with Emiliano Benjamin for EUS evaluation of pancreatic mass >will require colonoscopy in 6 to 8 weeks after resolution of colitis <Akira Eldridge - Last Filed: 08/19/16 08:41> Objective - Vital Signs/Intake and Output Vital Signs (last 24 hours): Temp Pulse Resp BP Pulse Ox 98.1 F 70 18 129/62 100 08/19/16 07:00 08/19/16 07:00 08/19/16 07:00 08/19/16 07:00 08/19/16 07:00 Intake and Output: 08/19/16 08/19/16 06:59 18:59 Intake Total 1050 Balance 1050 - Medications Medications: Current Medications Alprazolam (Xanax) 0.25 mg PO DAILY PRN PRN Reason: Anxiety Stop: 08/22/16 15:11 Last Admin: 08/17/16 04:17 Dose: 0.25 mg Amlodipine Besylate (Norvasc) 10 mg PO DAILY [facility] Last Admin: 08/18/16 10:02 Dose: 10 mg Aspirin (Aspirin Chewable) 81 mg PO DAILY [facility] Last Admin: 08/18/16 10:02 Dose: 81 mg Enoxaparin Sodium (Lovenox) 40 mg SC DAILY [facility] Last Admin: 08/18/16 10:02 Dose: 40 mg Home Med (Fosamax) 1 tab PO QWK [facility] Ceftriaxone Sodium (Rocephin Iv 1 Gm Duplex) 50 mls @ 100 mls/hr IVPB Q24H [facility] Last Admin: 08/18/16 21:33 Dose: 100 mls/hr Metronidazole 250 mg/ (Miscellaneous) 50 mls @ 100 mls/hr IVPB Q8 [facility] Last Admin: 08/19/16 05:32 Dose: 100 mls/hr Lamotrigine (Lamictal) 200 mg PO BID [facility] Last Admin: 08/18/16 17:58 Dose: 200 mg Levothyroxine Sodium (Synthroid) 25 mcg PO DAILY@0630 [facility] Last Admin: 08/19/16 05:32 Dose: 25 mcg Losartan Potassium (Cozaar) 50 mg PO HS [facility] Last Admin: 08/18/16 21:34 Dose: 50 mg Metoprolol Succinate (Toprol Xl) 50 mg PO DAILY [facility] Last Admin: 08/18/16 10:02 Dose: 50 mg Pantoprazole Sodium (Protonix Ec Tab) 40 mg PO DAILY [facility] Last Admin: 08/18/16 10:02 Dose: 40 mg Rosuvastatin Calcium (Crestor) 5 mg PO HS [facility] Last Admin: 08/18/16 21:34 Dose: 5 mg Sucralfate (Carafate Tab) 1 gm PO DAILY [facility] Last Admin: 08/18/16 10:02 Dose: 1 gm - Labs Labs: 08/19/16 07:48 08/19/16 07:48 Attending/Attestation - Attestation I have personally seen and examined this patient.: Yes I have fully participated in the care of the patient.: Yes I have reviewed all pertinent clinical information, including history, physical exam and plan: Yes Notes (Text): 08/19/16 08:37 I have seen and examined patient with GI fellow. No acute events overnight. She complains of fatigue but otherwise claims her abdominal pain has resolved. She has not had a bowel movement in past 3 days. She denies nausea, vomiting, fever/chills. Tolerating PO liquids without difficulty. HTN / hyperlipidemia Hypothyroidism Abdominal pain - colitis Pancreatic lesion Weight loss - Will advance diet slowly as tolerated - Continue with antibiotic therapy as per ID - Awaiting results of stool studies - Patient would benefit from EUS evaluation of increasing pancreatic cystic lesion which can be done electively as outpatient. She would also require colonoscopy 6-8 weeks following resolution of acute colitis, particularly in the setting of prior incomplete colonoscopy and unexplained weight loss in order to rule out underlying malignancy. - If patient tolerating PO diet, from GI standpoint ok to discharge home with subsequent outpatient follow up
[2016-08-19] MEDS: Pantoprazole 40 mg EC Tab PO SCH (11:25)
[2016-08-19] MEDS: Enoxaparin 60 mg Syringe SC SCH (11:26)
[2016-08-19] MEDS: Metoprolol Succinate 50 mg XL Tab PO SCH (11:26)
--- NOTE | 2016-08-19 13:05 | CP.PCM.PN ---
Subjective - Date & Time of Evaluation Date of Evaluation: 08/19/16 Time of Evaluation: 13:05 - Subjective Subjective: CHIEF COMPLAINTS TODAY : LLQ PAIN BETTER NO N/V SYSTOLIC HTN STABLE ROS. HEENT : N. Resp : No cough, wheezing ,pleuritic CP ,or hemoptysis Cardio : No anginal CP, PND, orthopnea, palpitation GI : POS abd.pain, NO n/v ,diarrhea or GI bleeding . 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 Musculoskel : No joint swelling , Derm : No rash Psych : Normal affect. Ext : No swelling ,calf pain PE. Pt. is alert awake in no distress. V.S As noted in the chart Head ,ear nose,throat and eyes : Normal. Neck : Supple with normal carotids. Lungs: Clear air entry. Heart : S1 & S2 normal with S4. No murmur. Abd : Soft tender LLQ with normal bowel sounds. Neuro : Moves all ext. with no localized deficit. Ext : No edema with intact pulses.Non tender calves Derm : No rashes or decubitus ulcer. LABS/RADIOLOGY: ASSESSMENT/PLAN : CONT IV AB GI EVAL NOTED Objective - Vital Signs/Intake and Output Vital Signs (last 24 hours): Temp Pulse Resp BP Pulse Ox 98.1 F 70 18 129/62 100 08/19/16 07:00 08/19/16 07:00 08/19/16 07:00 08/19/16 07:00 08/19/16 07:00 - Medications Medications: Current Medications Alprazolam (Xanax) 0.25 mg PO DAILY PRN PRN Reason: Anxiety Stop: 08/22/16 15:11 Last Admin: 08/17/16 04:17 Dose: 0.25 mg Amlodipine Besylate (Norvasc) 10 mg PO DAILY [facility] Last Admin: 08/19/16 11:25 Dose: 10 mg Aspirin (Aspirin Chewable) 81 mg PO DAILY [facility] Last Admin: 08/19/16 11:26 Dose: 81 mg Enoxaparin Sodium (Lovenox) 40 mg SC DAILY [facility] Last Admin: 08/19/16 11:26 Dose: 40 mg Home Med (Fosamax) 1 tab PO QWK [facility] Ceftriaxone Sodium (Rocephin Iv 1 Gm Duplex) 50 mls @ 100 mls/hr IVPB Q24H [facility] Last Admin: 08/18/16 21:33 Dose: 100 mls/hr Metronidazole (Flagyl) 50 mls @ 100 mls/hr IVPB Q8 [facility] Lamotrigine (Lamictal) 200 mg PO BID [facility] Last Admin: 08/19/16 11:26 Dose: 200 mg Levothyroxine Sodium (Synthroid) 25 mcg PO DAILY@0630 [facility] Last Admin: 08/19/16 05:32 Dose: 25 mcg Losartan Potassium (Cozaar) 50 mg PO HS [facility] Last Admin: 08/18/16 21:34 Dose: 50 mg Metoprolol Succinate (Toprol Xl) 50 mg PO DAILY [facility] Last Admin: 08/19/16 11:26 Dose: 50 mg Pantoprazole Sodium (Protonix Ec Tab) 40 mg PO DAILY [facility] Last Admin: 08/19/16 11:25 Dose: 40 mg Potassium Chloride (Potassium Chloride Oral Soln) 40 meq PO Q4H [facility] Stop: 08/19/16 16:31 Rosuvastatin Calcium (Crestor) 5 mg PO HS [facility] Last Admin: 08/18/16 21:34 Dose: 5 mg Sucralfate (Carafate Tab) 1 gm PO DAILY [facility] Last Admin: 08/19/16 11:26 Dose: 1 gm - Labs Labs: 08/19/16 07:48 08/19/16 07:48
[2016-08-19] MEDS: Potassium Chloride 20 mEq/15 ml LIQ UD PO SCH ×2 (13:20→17:30)
--- NOTE | 2016-08-19 13:27 | CP.PCM.PN ---
Subjective - Date & Time of Evaluation Date of Evaluation: 08/19/16 Time of Evaluation: 13:27 - Subjective Subjective: CHIEF COMPLAINTS TODAY : ABDOMINAL PAIN MUCH IMPROVED denies nausea or vomiting. feeling better tolerating soft diet ROS. HEENT : N. Resp : No cough, wheezing ,pleuritic CP ,or hemoptysis Cardio : No anginal CP, PND, orthopnea, palpitation GI : POS ABDOMINAL PAIN, NO n/v ,diarrhea or GI bleeding . 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 Musculoskel : No joint swelling , Derm : No rash Psych : Normal affect. Ext : No swelling ,calf pain PE. Pt. is alert awake in no distress. V.S As noted in the chart Head ,ear nose,throat and eyes : Normal. Neck : Supple with normal carotids. Lungs: Clear air entry. Heart : S1 & S2 normal with S4. No murmur. Abd : Soft LESS TENDERNESS MID ABDOMEN / LLQ with normal bowel sounds. NO MASSES PALPABLE. Neuro : Moves all ext. with no localized deficit. Ext : No edema with intact pulses.Non tender calves Derm : No rashes or decubitus ulcer. Objective - Vital Signs/Intake and Output Vital Signs (last 24 hours): Temp Pulse Resp BP Pulse Ox 98.1 F 70 18 129/62 100 08/19/16 07:00 08/19/16 07:00 08/19/16 07:00 08/19/16 07:00 08/19/16 07:00 Intake and Output: 08/19/16 08/19/16 06:59 18:59 Intake Total 1050 Balance 1050 - Medications Medications: Current Medications Alprazolam (Xanax) 0.25 mg PO DAILY PRN PRN Reason: Anxiety Stop: 08/22/16 15:11 Last Admin: 08/17/16 04:17 Dose: 0.25 mg Amlodipine Besylate (Norvasc) 10 mg PO DAILY [facility] Last Admin: 08/19/16 11:25 Dose: 10 mg Aspirin (Aspirin Chewable) 81 mg PO DAILY [facility] Last Admin: 08/19/16 11:26 Dose: 81 mg Enoxaparin Sodium (Lovenox) 40 mg SC DAILY [facility] Last Admin: 08/19/16 11:26 Dose: 40 mg Home Med (Fosamax) 1 tab PO QWK [facility] Ceftriaxone Sodium (Rocephin Iv 1 Gm Duplex) 50 mls @ 100 mls/hr IVPB Q24H [facility] Last Admin: 08/18/16 21:33 Dose: 100 mls/hr Metronidazole (Flagyl) 50 mls @ 100 mls/hr IVPB Q8 [facility] Last Admin: 08/19/16 13:20 Dose: 100 mls/hr Lamotrigine (Lamictal) 200 mg PO BID [facility] Last Admin: 08/19/16 11:26 Dose: 200 mg Levothyroxine Sodium (Synthroid) 25 mcg PO DAILY@0630 [facility] Last Admin: 08/19/16 05:32 Dose: 25 mcg Losartan Potassium (Cozaar) 50 mg PO HS [facility] Last Admin: 08/18/16 21:34 Dose: 50 mg Metoprolol Succinate (Toprol Xl) 50 mg PO DAILY [facility] Last Admin: 08/19/16 11:26 Dose: 50 mg Pantoprazole Sodium (Protonix Ec Tab) 40 mg PO DAILY [facility] Last Admin: 08/19/16 11:25 Dose: 40 mg Potassium Chloride (Potassium Chloride Oral Soln) 40 meq PO Q4H [facility] Stop: 08/19/16 16:31 Last Admin: 08/19/16 13:20 Dose: 40 meq Rosuvastatin Calcium (Crestor) 5 mg PO HS [facility] Last Admin: 08/18/16 21:34 Dose: 5 mg Sucralfate (Carafate Tab) 1 gm PO DAILY [facility] Last Admin: 08/19/16 11:26 Dose: 1 gm - Labs Labs: 08/19/16 07:48 08/19/16 07:48 Assessment and Plan (1) Colitis Assessment & Plan: ON iv ROCEPHIN 1 G ONCE A DAY DAILY 08/15/16 DC iv fLAGYL 250 MG EVERY 8 HOURLY . MAY SWITCH TO PO LEVAQUIN 250MG OD DAILY X 5 DAYS IN AM F/U LFTS IN X1 WEEK. BLOOD - CULTURES NEGATIVE TO DATE. Status: Acute (2) Abdominal pain Status: Acute (3) Cystic mass of pancreas Assessment & Plan: EUS OPD PER GI. COLONOSCOPY OPD IN 6-8 WKSAS PER GI. PT INFORMED. STATES SHE WILL CONSIDER. AT BEDSIDE. Status: Acute (4) Leukopenia Status: Acute (5) Labile hypertension Status: Acute (6) Low back pain Status: Acute
[2016-08-19] MEDS ORDERED: metroNIDAZOLE IV 250mg/50 ml 50 ML IVPB SCH (14:00)
[2016-08-19 16:14] VITALS: RESP 20
[2016-08-19] MEDS: cefTRIAXone IV 1 gm in Dextros 50 ML IVPB SCH (21:12)
[2016-08-20] MEDS: Levothyroxine 25 MCG TAB PO SCH (05:32)
[2016-08-20 08:39] LABS: BASO % 0.9 % (0.0-2.0); EOS % 0.5 % (0.0-4.0); LYMPH # 0.8 K/uL (1.0-4.3); LYMPH % 22.5 % (20.0-40.0); MEAN CELL VOLUME 91.2 fL (81.0-99.0); MEAN CORPUSCULAR HEMOGLOBIN 30.5 pg (27.0-31.0); MEAN CORPUSCULAR HGB CONC 33.5 g/dL (33.0-37.0); MEAN PLATELET VOLUME 6.9 fL (7.2-11.7); MONO # 0.4 K/uL (0.0-0.8); MONO % 11.5 % (0.0-10.0); RED CELL DISTRIBUTION WIDTH 13.4 % (11.5-14.5); WHITE BLOOD COUNT 3.6 K/uL (4.8-10.8)
[2016-08-20 08:48] LABS: CHLORIDE 92 mmol/L (98-107); SODIUM 136 mmol/L (132-148)
[2016-08-20 08:49] LABS: POTASSIUM 3.9 mmol/L (3.6-5.2)
[2016-08-20 08:50] VITALS: BP 121/71; PULSE 69; TEMP 97; O2SAT 100
[2016-08-20 08:51] LABS: ALB/GLOB RATIO 1.3 (1.0-2.1); ALKALINE PHOSPHATASE 63 U/L (38-126); ALT/SGPT 48 U/L (9-52); AST/SGOT 110 U/L (14-36); BILIRUBIN,TOTAL 0.3 mg/dL (0.2-1.3); BLOOD UREA NITROGEN 11 mg/dL (7-17); CARBON DIOXIDE 31 mmol/L (22-30); GFR AFRICAN-AMERICAN > 60; GLUCOSE,RANDOM 91 mg/dL (65-105); TOTAL PROTEIN 7.4 g/dL (6.3-8.3)
[2016-08-20 08:52] LABS: CALCIUM 9.2 mg/dl (8.6-10.4)
--- NOTE | 2016-08-20 09:22 | CP.PCM.PN ---
Subjective - Date & Time of Evaluation Date of Evaluation: 08/20/16 Time of Evaluation: 09:19 - Subjective Subjective: ADVISED BY DR Maureen MYERS TO ASSUME CARE OF PATIENT AT REQUEST OF PATIENT AND FAMILY Poor appetite but no further pain, diarrhea, N/V ALL previous notes and reports reviewed. Patient with h/o Pancreatic Cyst that had been followed for 2 years with EUS and fluid aspiration that was negative for tumor markers and cytology (Dr Tyrell Alvarez). She is scheduled to be reexamined and slight enlargement of cyst on current CT is noted. Prior examination of EGD and Colonoscopy were performed in 2014 with reports detailed and summarized by prior GI Child Care Attendant. Objective - Vital Signs/Intake and Output Vital Signs (last 24 hours): Temp Pulse Resp BP Pulse Ox 97 F L 69 20 121/71 100 08/20/16 08:00 08/20/16 08:00 08/20/16 08:00 08/20/16 08:00 08/20/16 08:00 Intake and Output: 08/20/16 08/20/16 06:59 18:59 Intake Total 300 Balance 300 - Medications Medications: Current Medications Alprazolam (Xanax) 0.25 mg PO DAILY PRN PRN Reason: Anxiety Stop: 08/22/16 15:11 Last Admin: 08/19/16 21:11 Dose: 0.25 mg Amlodipine Besylate (Norvasc) 10 mg PO DAILY [facility] Last Admin: 08/19/16 11:25 Dose: 10 mg Aspirin (Aspirin Chewable) 81 mg PO DAILY [facility] Last Admin: 08/19/16 11:26 Dose: 81 mg Enoxaparin Sodium (Lovenox) 40 mg SC DAILY [facility] Last Admin: 08/19/16 11:26 Dose: 40 mg Home Med (Fosamax) 1 tab PO QWK [facility] Ceftriaxone Sodium (Rocephin Iv 1 Gm Duplex) 50 mls @ 100 mls/hr IVPB Q24H [facility] Last Admin: 08/19/16 21:12 Dose: 100 mls/hr Lamotrigine (Lamictal) 200 mg PO BID [facility] Last Admin: 08/19/16 17:27 Dose: 200 mg Levothyroxine Sodium (Synthroid) 25 mcg PO DAILY@0630 [facility] Last Admin: 08/20/16 05:32 Dose: 25 mcg Losartan Potassium (Cozaar) 50 mg PO HS [facility] Last Admin: 08/19/16 21:11 Dose: 50 mg Metoprolol Succinate (Toprol Xl) 50 mg PO DAILY [facility] Last Admin: 08/19/16 11:26 Dose: 50 mg Pantoprazole Sodium (Protonix Ec Tab) 40 mg PO DAILY [facility] Last Admin: 08/19/16 11:25 Dose: 40 mg Rosuvastatin Calcium (Crestor) 5 mg PO [facility] Last Admin: 08/19/16 21:11 Dose: 5 mg Sucralfate (Carafate Tab) 1 gm PO DAILY [facility] Last Admin: 08/19/16 11:26 Dose: 1 gm - Labs Labs: 08/20/16 08:30 08/20/16 08:30 - Constitutional Appears: No Acute Distress, Older Than Stated Age - Head Exam Head Exam: ATRAUMATIC, NORMOCEPHALIC - Eye Exam Eye Exam: EOMI, PERRL - Respiratory Exam Respiratory Exam: NORMAL BREATHING PATTERN - Cardiovascular Exam Cardiovascular Exam: REGULAR RHYTHM, +S1 - GI/Abdominal Exam GI & Abdominal Exam: Distended, Soft, Normal Bowel Sounds. absent: Tenderness, Mass, Organomegaly, Rebound - Rectal Exam Rectal Exam: Deferred - Back Exam Back Exam: absent: CVA tenderness (L), CVA tenderness (R), paraspinal tenderness - Neurological Exam Neurological Exam: Alert, Awake, Oriented x3 - Psychiatric Exam Psychiatric exam: Normal Affect, Normal Mood - Skin Skin Exam: Dry, Warm Assessment and Plan - Assessment and Plan (Free Text) Assessment: 80 yo female admitted with abdominal pain and found to have Left sided colitis on CT Examination. Clinically has improved greatly and labs all indicative of stability. Tolerating diet thus far. Patient also with h/o pancreatic cyst that has been aspirated in the past and will be followed as outpatient by Dr Alvarez due to enlargement noted on this admission. Complete course of po antibiotics for total of 10 days (including hospital administration). Agree with need for outpatient colonoscopy. Check CA-[id number] if not repeated on this admission Out patient follow up with me and Dr Julianna Li within two weeks. She will contact me if she has further pain, fever, vomiting or bleeding. Stable for discharge today from GI point of view. Thank you.
--- NOTE | 2016-08-20 10:51 | CP.PCM.PN ---
Subjective - Date & Time of Evaluation Date of Evaluation: 08/20/16 Time of Evaluation: 10:49 - Subjective Subjective: HPI ADMITTED FROM ER WITH LEFT SIDED ABD. PAIN , INCREASED IN INSTENSITY FROM 1 WEEK NOT A/W NAUSEA/VOMITING OR GI BLEEDING CT ABD. REVEALED LEFT DESCENDING COLITIS AND ADMITTED FOR FURTHER TREATMENT ID/GI WAS CONSULTED PT IMPROVED ON IV AB GI INTERVENTION WAS POSTPONED PANCREATIC CYST IS BEING F/U AT [facility] Objective - Vital Signs/Intake and Output Vital Signs (last 24 hours): Temp Pulse Resp BP Pulse Ox 97 F L 69 20 121/71 100 08/20/16 08:00 08/20/16 08:00 08/20/16 08:00 08/20/16 08:00 08/20/16 08:00 Intake and Output: 08/19/16 08/20/16 23:59 11:59 Intake Total 540 Balance 540 - Medications Medications: Current Medications Alprazolam (Xanax) 0.25 mg PO DAILY PRN PRN Reason: Anxiety Stop: 08/22/16 15:11 Last Admin: 08/19/16 21:11 Dose: 0.25 mg Amlodipine Besylate (Norvasc) 10 mg PO DAILY [facility] Last Admin: 08/19/16 11:25 Dose: 10 mg Aspirin (Aspirin Chewable) 81 mg PO DAILY [facility] Last Admin: 08/19/16 11:26 Dose: 81 mg Enoxaparin Sodium (Lovenox) 40 mg SC DAILY [facility] Last Admin: 08/19/16 11:26 Dose: 40 mg Home Med (Fosamax) 1 tab PO QWK [facility] Ceftriaxone Sodium (Rocephin Iv 1 Gm Duplex) 50 mls @ 100 mls/hr IVPB Q24H [facility] Last Admin: 08/19/16 21:12 Dose: 100 mls/hr Lamotrigine (Lamictal) 200 mg PO BID [facility] Last Admin: 08/19/16 17:27 Dose: 200 mg Levothyroxine Sodium (Synthroid) 25 mcg PO DAILY@0630 [facility] Last Admin: 08/20/16 05:32 Dose: 25 mcg Losartan Potassium (Cozaar) 50 mg PO HS [facility] Last Admin: 08/19/16 21:11 Dose: 50 mg Metoprolol Succinate (Toprol Xl) 50 mg PO DAILY [facility] Last Admin: 08/19/16 11:26 Dose: 50 mg Pantoprazole Sodium (Protonix Ec Tab) 40 mg PO DAILY [facility] Last Admin: 08/19/16 11:25 Dose: 40 mg Rosuvastatin Calcium (Crestor) 5 mg PO HS [facility] Last Admin: 08/19/16 21:11 Dose: 5 mg Sucralfate (Carafate Tab) 1 gm PO DAILY [facility] Last Admin: 08/19/16 11:26 Dose: 1 gm - Labs Labs: 08/20/16 08:30 08/20/16 08:30
--- NOTE | 2016-08-20 12:01 | CP.PCM.PN ---
Subjective - Date & Time of Evaluation Date of Evaluation: 08/20/16 Time of Evaluation: 11:25 - Subjective Subjective: ALARM OPERATOR NOTES Pt seen an d examined today, states feels better, abdominal pain improved , denies N/V/D,tolerating diet, but reported poor apatite, wants to go home seen by Dr. Wiseman , today , cleared for discharge from GI standpoint and f/u in his office in [address] Olivier , patient stable for discharge home with 7 more days of levaquin and resume all home medications Discharge plan discussed with patient and at bedside in details regarding medication, f/u visi t with PMD and GI , who understands and agree with plan Pt instructed to returns to ED if symptoms get worse or any other concerning symptoms recur Objective - Vital Signs/Intake and Output Vital Signs (last 24 hours): Temp Pulse Resp BP Pulse Ox 97 F L 69 20 121/71 100 08/20/16 08:00 08/20/16 08:00 08/20/16 08:00 08/20/16 08:00 08/20/16 08:00 Intake and Output: 08/20/16 08/20/16 06:59 18:59 Intake Total 300 Balance 300 - Medications Medications: Current Medications Alprazolam (Xanax) 0.25 mg PO DAILY PRN PRN Reason: Anxiety Stop: 08/22/16 15:11 Last Admin: 08/19/16 21:11 Dose: 0.25 mg Amlodipine Besylate (Norvasc) 10 mg PO DAILY [facility] Last Admin: 08/19/16 11:25 Dose: 10 mg Aspirin (Aspirin Chewable) 81 mg PO DAILY [facility] Last Admin: 08/19/16 11:26 Dose: 81 mg Enoxaparin Sodium (Lovenox) 40 mg SC DAILY [facility] Last Admin: 08/19/16 11:26 Dose: 40 mg Home Med (Fosamax) 1 tab PO QWK [facility] Ceftriaxone Sodium (Rocephin Iv 1 Gm Duplex) 50 mls @ 100 mls/hr IVPB Q24H [facility] Last Admin: 08/19/16 21:12 Dose: 100 mls/hr Lamotrigine (Lamictal) 200 mg PO BID [facility] Last Admin: 08/19/16 17:27 Dose: 200 mg Levothyroxine Sodium (Synthroid) 25 mcg PO DAILY@0630 [facility] Last Admin: 08/20/16 05:32 Dose: 25 mcg Losartan Potassium (Cozaar) 50 mg PO [facility] Last Admin: 08/19/16 21:11 Dose: 50 mg Metoprolol Succinate (Toprol Xl) 50 mg PO DAILY [facility] Last Admin: 08/19/16 11:26 Dose: 50 mg Pantoprazole Sodium (Protonix Ec Tab) 40 mg PO DAILY [facility] Last Admin: 08/19/16 11:25 Dose: 40 mg Rosuvastatin Calcium (Crestor) 5 mg PO [facility] Last Admin: 08/19/16 21:11 Dose: 5 mg Sucralfate (Carafate Tab) 1 gm PO DAILY [facility] Last Admin: 08/19/16 11:26 Dose: 1 gm - Labs Labs: 08/20/16 08:30 08/20/16 08:30
[2016-08-20] MEDS: Pantoprazole 40 mg EC Tab PO SCH (12:12)
[2016-08-20] MEDS: Enoxaparin 60 mg Syringe SC SCH (12:13)
[2016-08-20] MEDS: Metoprolol Succinate 50 mg XL Tab PO SCH (12:14)
--- NOTE | 2016-08-20 13:34 | CP.PCM.PN ---
Subjective - Date & Time of Evaluation Date of Evaluation: 08/20/16 Time of Evaluation: 13:34 Objective - Vital Signs/Intake and Output Vital Signs (last 24 hours): Temp Pulse Resp BP Pulse Ox 97 F L 69 20 121/71 100 08/20/16 08:00 08/20/16 08:00 08/20/16 08:00 08/20/16 08:00 08/20/16 08:00 Intake and Output: 08/20/16 08/20/16 06:59 18:59 Intake Total 300 Balance 300 - Medications Medications: Current Medications Alprazolam (Xanax) 0.25 mg PO DAILY PRN PRN Reason: Anxiety Stop: 08/22/16 15:11 Last Admin: 08/19/16 21:11 Dose: 0.25 mg Amlodipine Besylate (Norvasc) 10 mg PO DAILY [facility] Last Admin: 08/20/16 12:12 Dose: 10 mg Aspirin (Aspirin Chewable) 81 mg PO DAILY [facility] Last Admin: 08/20/16 12:12 Dose: 81 mg Enoxaparin Sodium (Lovenox) 40 mg SC DAILY [facility] Last Admin: 08/20/16 12:13 Dose: 40 mg Home Med (Fosamax) 1 tab PO QWK [facility] Ceftriaxone Sodium (Rocephin Iv 1 Gm Duplex) 50 mls @ 100 mls/hr IVPB Q24H [facility] Last Admin: 08/19/16 21:12 Dose: 100 mls/hr Lamotrigine (Lamictal) 200 mg PO BID [facility] Last Admin: 08/20/16 12:12 Dose: 200 mg Levothyroxine Sodium (Synthroid) 25 mcg PO DAILY@0630 [facility] Last Admin: 08/20/16 05:32 Dose: 25 mcg Losartan Potassium (Cozaar) 50 mg PO HS [facility] Last Admin: 08/19/16 21:11 Dose: 50 mg Metoprolol Succinate (Toprol Xl) 50 mg PO DAILY [facility] Last Admin: 08/20/16 12:14 Dose: 50 mg Pantoprazole Sodium (Protonix Ec Tab) 40 mg PO DAILY [facility] Last Admin: 08/20/16 12:12 Dose: 40 mg Rosuvastatin Calcium (Crestor) 5 mg PO HS [facility] Last Admin: 08/19/16 21:11 Dose: 5 mg Sucralfate (Carafate Tab) 1 gm PO DAILY [facility] Last Admin: 08/20/16 12:12 Dose: 1 gm - Labs Labs: 08/20/16 08:30 08/20/16 08:30 Assessment and Plan (1) Colitis Status: Acute (2) Abdominal pain Status: Acute (3) Cystic mass of pancreas Status: Acute (4) Leukopenia Status: Acute (5) Labile hypertension Status: Acute (6) Low back pain Status: Acute
[2016-08-22] MEDS ORDERED: FOSAMAX PO SCH (10:00)
== END 2016-08-20 13:40 | disposition home or self-care (01) | DRG 386 ==
LOC: C.ER 07:15 → C.3T 13:19 → OBSVTOIN 08-18 16:47
PROVIDERS: ADMIT Internal Medicine Cardiovascular Disease; ATTEND Internal Medicine Cardiovascular Disease
DX: K51.50 Left sided colitis without complications (principal); K86.2 Cyst of pancreas; G40.909 Epilepsy, unspecified, not intractable, without status epilepticus; I10 Essential (primary) hypertension; D72.819 Decreased white blood cell count, unspecified; M54.5 Low back pain; E78.00 Pure hypercholesterolemia, unspecified; M81.0 Age-related osteoporosis without current pathological fracture; E03.9 Hypothyroidism, unspecified; Z88.2 Allergy status to sulfonamides; K21.9 Gastro-esophageal reflux disease without esophagitis

== ENCOUNTER 2016-09-17 06:53 | Day surgery (SDC) | payer MEDICARE ==
[2016-09-17 07:11] VITALS: BMI 17.6
[2016-09-17 07:38] VITALS: O2SAT 100
--- NOTE | 2016-09-17 09:38 | CP.SDSHP ---
Same Day Surgery H & P - History Proposed Procedure: colonoscopy Pre-Op Diagnosis: Acute colitis by CT scan 06/2016. LLQ Pain - Previous Medical/Surgical History Cardiac: Hypertension, Other (hyperlipidemia, gerd, gastritis, ) Endocrine/Metabolic: Thyroid Disease Neuro: Seizure Disorder Misc: Other (diverticulosis, skin cancer, Pancreatic cyst) - Allergies Allergies: Allergies Sulfa (Sulfonamide Antibiotics) Adverse Reaction (Intermediate, Verified 07:30) NAUSEA - Physical Exam Vital Signs: Vital Signs 09/17/16 09/17/16 07:25 09:34 Temperature 97.4 F L 97.4 F L Pulse Rate 79 79 Respiratory 19 19 Rate Blood Pressure 187/80 H 187/80 H O2 Sat by Pulse 100 100 Oximetry Mental Status: Alert & Oriented x3 Neuro: WNL Heart: WNL Lungs: WNL GI: WNL - Impression Impression: Acute colitis by CT scan. LLQ Pain Pt. Evaluated Today:Candidate for Anesthesia & Procedure: Yes - Date & Time Date: 09/17/16 Time: 09:38 Short Stay Discharge - Short Stay Discharge Admitting Diagnosis/Reason for Visit: LEFT LOWER QUADRANT PAIN, ABNORMAL IMAGING ABD, DI Disposition: HOME/ ROUTINE
[2016-09-17] MEDS ORDERED: Propofol 10 mg/ml Inj (20 ML) ONE ×2 (09:40→09:57)
[2016-09-17] MEDS ORDERED: Midazolam 2 MG/2 ML VIAL ONE (09:40)
[2016-09-17 11:34] VITALS: TEMP 97.1
[2016-09-17 12:10] VITALS: BP 151/64; PULSE 58; RESP 16
== END 2016-09-17 11:50 | disposition home or self-care (01) ==
LOC: C.ENDO 06:53
PROVIDERS: ATTEND Internal Medicine Gastroenterology
DX: K52.9 Noninfective gastroenteritis and colitis, unspecified (principal); K21.9 Gastro-esophageal reflux disease without esophagitis; I10 Essential (primary) hypertension; E78.5 Hyperlipidemia, unspecified; K57.90 Diverticulosis of intestine, part unspecified, without perforation or abscess without bleeding; K43.9 Ventral hernia without obstruction or gangrene
CPT/HCPCS: 45378; J2250; J2704; J3010

== ENCOUNTER 2017-08-09 15:44 | Inpatient (IN) | payer MEDICARE ==
[2017-08-09 15:44] VITALS: BMI 17.6
[2017-08-09] MEDS ORDERED: Sodium Chloride 0.9% 500 ML IV ONE (16:28)
--- NOTE | 2017-08-09 16:31 | C.PDOC ---
History Of Present Illness 81 yo female, hx htn hld, presents sp syncope. as per , pt was eating breakfast, then got up, "felt dizzy" and "passed out in his arms". felt at baseline previous. at this time, states symptoms improved. no cp, sob, abd pain , n/v/d, urinary changes bloody stool, del toor. Time Seen by Provider: 08/09/17 16:22 Chief Complaint (Nursing): Syncope Past Medical History Reviewed: Historical Data, Nursing Documentation, Vital Signs Vital Signs: Last Vital Signs Temp 97.9 F 08/09/17 16:30 Pulse 75 08/09/17 16:30 Resp 16 08/09/17 16:30 BP 155/70 H 08/09/17 16:30 Pulse Ox 99 08/09/17 16:30 - Medical History PMH: Anxiety, HTN, Hypercholesterolemia, Hypothyroidism, Osteoporosis, Seizures (2 MONTHS AGO) Denies: Chronic Kidney Disease Surgical History: Back Surgery, Endoscopy - [facility] Procedures COLONOSCOPY (07/25/14) ESOPHAGOGASTRODUODENOSCOPY [EGD] W/CLOSED BIOPSY (07/25/14) Family History: States: Unknown Family Hx - Social History Hx Tobacco Use: No Hx Alcohol Use: No Hx Substance Use: No - Immunization History Hx Tetanus Toxoid Vaccination: No Hx Influenza Vaccination: Yes Hx Pneumococcal Vaccination: No Physical Exam - Physical Exam Appears: Well, No Acute Distress Skin: Normal Color, Warm, Dry Eye(s): bilateral: Normal Inspection, PERRL, EOMI Nose: Normal Throat: Normal Neck: Normal Cardiovascular: Rhythm Regular Respiratory: Normal Breath Sounds Gastrointestinal/Abdominal: Normal Exam Back: Normal Inspection Extremity: Normal ROM Neurological/Psych: Oriented x3, Normal Speech, Normal Cognition, Normal Cranial Nerves, No Cerebellar Signs, Normal Motor, Normal Sensation ED Course And Treatment - Laboratory Results Result Diagrams: 08/09/17 16:35 08/09/17 16:35 Medical Decision Making Medical Decision Making: syncope, ro cardiac metabolic intracranial etiology - labs imaging pending - neuro intact 530: pt reassesed denies complaitns discussed with dr montague, accepts for admission covering dr cordero ekg nsr [address] twave changes normal intevals Disposition - Disposition Disposition: HOSPITALIZED Disposition Time: 17:30 Condition: STABLE Forms: [employer] (Spanish) - Clinical Impression Clinical Impression: Syncope Decision To Admit - Pt Status Changed To: Hospital Disposition Of: Inpatient - Admit Certification Admit to Inpatient:: After my assessment, the patient will require hospitalization for at least two midnights. This is because of the severity of symptoms shown, intensity of services needed, and/or the medical risk in this patient being treated as an outpatient. - InPatient: Physician Admission Certification: I certify that this patient requires 2 or more midnights of care for the following reason:: needs monitoring, neuro cards eval. - . Bed Request Type: Telemetry Admitting Physician: Star Olivier Patient Diagnosis: Syncope
[2017-08-09 16:40] LABS: BASO % 0.4 % (0.0-2.0); EOS % 0.3 % (0.0-4.0); HEMOGLOBIN 11.1 g/dL (11.0-16.0); LYMPH # 0.6 K/uL (1.0-4.3); MEAN CELL VOLUME 91.4 fL (81.0-99.0); MEAN CORPUSCULAR HEMOGLOBIN 30.6 pg (27.0-31.0); MEAN CORPUSCULAR HGB CONC 33.4 g/dL (33.0-37.0); MEAN PLATELET VOLUME 6.5 fL (7.2-11.7); MONO # 0.6 K/uL (0.0-0.8); MONO % 12.5 % (0.0-10.0); NEUT # 3.3 K/uL (1.8-7.0); NEUT % 73.8 % (50.0-75.0); NRBC % 0.1 % (0.0-2.0); RBC 3.64 Mil/uL (3.80-5.20); RED CELL DISTRIBUTION WIDTH 13.2 % (11.5-14.5); WHITE BLOOD COUNT 4.5 K/uL (4.8-10.8)
[2017-08-09 16:49] LABS: PROTHROMBIN TIME 11.2 SECONDS (9.7-12.2)
[2017-08-09 16:51] LABS: ALB/GLOB RATIO 1.1 (1.0-2.1); ALBUMIN 3.9 g/dL (3.5-5.0); ALT/SGPT 20 U/L (9-52); AST/SGOT 24 U/L (14-36); BLOOD UREA NITROGEN 19 mg/dL (7-17); CALCIUM 9.2 mg/dl (8.6-10.4); GFR AFRICAN-AMERICAN > 60; GFR NON-AFRICAN AMERICAN > 60
--- NOTE | 2017-08-09 17:03 | RAD ---
PROCEDURE: CHEST RADIOGRAPH, 1 VIEW HISTORY: chest pain COMPARISON: 05/11/2013 FINDINGS: LUNGS: Clear. PLEURA: No pneumothorax or pleural fluid seen. CARDIOVASCULAR: Normal. OSSEOUS STRUCTURES: No significant abnormalities. VISUALIZED UPPER ABDOMEN: Normal. OTHER FINDINGS: None. IMPRESSION: No active disease.
--- NOTE | 2017-08-09 17:24 | CT ---
PROCEDURE: CT HEAD WITHOUT CONTRAST. HISTORY: syncope COMPARISON: 07/12/2013 TECHNIQUE: Axial computed tomography images were obtained through the head/brain without intravenous contrast. Radiation dose: Total exam DLP = 863.77 mGy-cm. This CT exam was performed using one or more of the following dose reduction techniques: Automated exposure control, adjustment of the mA and/or kV according to patient size, and/or use of iterative reconstruction technique. FINDINGS: HEMORRHAGE: No intracranial hemorrhage. BRAIN: No mass effect or edema. Mild to moderate diffuse atrophy. Moderate to severe patchy and confluent white matter lucency in the periventricular and deep white matter, consistent with microvascular white matter ischemic change. This has increased in extent when compared to the prior examination. No evidence of acute infarct. VENTRICLES: Unremarkable. No hydrocephalus. CALVARIUM: Unremarkable. PARANASAL SINUSES: Unremarkable as visualized. No significant inflammatory changes. MASTOID AIR CELLS: Unremarkable as visualized. No inflammatory changes. OTHER FINDINGS: None. IMPRESSION: No intracranial mass, hemorrhage or evidence of acute infarct. Moderate to severe chronic white matter ischemic change increased in extent compared to prior examination.
[2017-08-09] MEDS ORDERED: BENTYL PO PRN (20:42)
[2017-08-09] MEDS: Potassium Chloride 20 mEq ER Tab PO SCH (21:23)
[2017-08-10 01:06] LABS: CK-MB 0.31 ng/mL (0.0-3.38); TROPONIN I 0.016 ng/mL (0.00-0.120)
[2017-08-10 08:04] LABS: BASO % 0.7 % (0.0-2.0); EOS % 0.6 % (0.0-4.0); HEMOGLOBIN 11.3 g/dL (11.0-16.0); LYMPH # 0.9 K/uL (1.0-4.3); LYMPH % 24.3 % (20.0-40.0); MEAN CELL VOLUME 90.7 fL (81.0-99.0); MEAN CORPUSCULAR HEMOGLOBIN 30.4 pg (27.0-31.0); MEAN CORPUSCULAR HGB CONC 33.6 g/dL (33.0-37.0); MEAN PLATELET VOLUME 6.8 fL (7.2-11.7); MONO # 0.5 K/uL (0.0-0.8); MONO % 12.7 % (0.0-10.0); NEUT # 2.4 K/uL (1.8-7.0); NEUT % 61.7 % (50.0-75.0); NRBC % 0.1 % (0.0-2.0); RBC 3.71 Mil/uL (3.80-5.20); RED CELL DISTRIBUTION WIDTH 13.4 % (11.5-14.5); WHITE BLOOD COUNT 3.9 K/uL (4.8-10.8)
[2017-08-10 08:37] LABS: ALBUMIN 3.6 g/dL (3.5-5.0); ALT/SGPT 15 U/L (9-52); AST/SGOT 29 U/L (14-36); BLOOD UREA NITROGEN 15 mg/dL (7-17); CALCIUM 9.1 mg/dl (8.6-10.4); CK-MB 0.32 ng/mL (0.0-3.38); GFR AFRICAN-AMERICAN > 60; GFR NON-AFRICAN AMERICAN > 60
[2017-08-10] MEDS ORDERED: Enoxaparin 40 mg Syringe SC SCH (10:00)
[2017-08-10] MEDS ORDERED: FOLGARD OS PO SCH (10:00)
[2017-08-10] MEDS ORDERED: Potassium Chloride 20 mEq ER Tab PO SCH (10:00)
[2017-08-10] MEDS ORDERED: Pantoprazole 20 mg EC Tab PO SCH (10:00)
[2017-08-10] MEDS: Potassium Chloride 20 mEq ER Tab PO SCH (10:34)
[2017-08-10] MEDS: Metoprolol Succinate 50 mg XL Tab PO SCH (10:34)
--- NOTE | 2017-08-10 14:30 | CP.PCM.HP ---
History of Present Illness - History of Present Illness History of Present Illness: 81 yo female, hx htn hld, presents sp syncope. as per , pt was eating breakfast, then got up, "felt dizzy" and "passed out in his arms". felt at baseline previous. at this time, states symptoms improved. no cp, sob, abd afsaneh H/O SEIZURES . NO WITNESSED SEIZURES Present on Admission - Present on Admission Any Indicators Present on Admission: No Review of Systems - Constitutional Constitutional: As Per HPI - EENT Eyes: As Per HPI Nose/Mouth/Throat: Dry Mouth - Breasts Breasts: absent: Change in Shape, Pain, Nipple Discharge - Cardiovascular Cardiovascular: Diaphoresis, Dyspnea, Dyspnea on Exertion. absent: Chest Pain, Chest Pain at Rest, Edema, Irregular Heart Rhythm, Paroxysmal Nocturnal Dyspnea , Pedal Edema - Respiratory Respiratory: absent: As Per HPI, Cough, Dyspnea, Hemoptysis, Dyspnea on Exertion , Wheezing, Snoring, Stridor, Pain on Inspiration, Chest Congestion, Excessive Mucous Production, Change in Mucous Color, Pain with Coughing, Other - Gastrointestinal Gastrointestinal: absent: As Per HPI, Abdominal Pain, Belching, Bloating, Change in Bowel Habits, Change in Stool Character, Coffee Ground Emesis, Constipation, Cramping, Diarrhea, Dyspepsia, Dysphagia, Early Satiety, Excessive Flatus, Fecal Incontinence, Heartburn, Hematemesis, Hematochezia, Loose Stools, Melena, Nausea, Odynophagia, Temesmus, Vomiting, Other - Genitourinary Genitourinary: absent: As Per HPI, Change in Urinary Stream, Difficulty Urinating, Dysuria, Flank Pain, Hematuria, Pyuria, Nocturia, Urinary Incontinence, Urinary Frequency, Urinary Hesitance, Urinary Urgency, Voiding Freq/Small Amts, Freq UTI, Hx Renal/Bladder Calculi, Hx /Renal Surgery, Bladder Distension, Other - Neurological Neurological: Abnormal Gait, Dizziness, Syncope, Vertigo. absent: Burning Sensations, Confusion, Convulsions, Focal Weakness, Frequent Falls, Headaches, Tremor - Psychiatric Psychiatric: Anxiety Past Patient History - Infectious Disease Hx of Infectious Diseases: None - Past Medical History & Family History Past Medical History?: Yes - Past Social History Smoking Status: Never Smoked - CARDIAC Hx Hypercholesterolemia: Yes Hx Hypertension: Yes - PULMONARY Hx Respiratory Disorders: No - NEUROLOGICAL Hx Seizures: Yes (2 MONTHS AGO) - HEENT Hx HEENT Problems: No - RENAL Hx Chronic Kidney Disease: No - ENDOCRINE/METABOLIC Hx Hypothyroidism: Yes - HEMATOLOGICAL/ONCOLOGICAL Hx Blood Disorders: No - INTEGUMENTARY Hx Dermatological Problems: No - MUSCULOSKELETAL/RHEUMATOLOGICAL Hx Osteoporosis: Yes - GASTROINTESTINAL Other/Comment: LUQ ABDOMINAL PAIN; , dizziness - GENITOURINARY/GYNECOLOGICAL Hx Genitourinary Disorders: No - PSYCHIATRIC Hx Anxiety: Yes Hx Substance Use: No - SURGICAL HISTORY Hx Surgeries: Yes Hx Musculoskeletal Surgery: Yes (2 BACK SURGERIES 30 YRS. AGO) - ANESTHESIA Hx Anesthesia: Yes Hx Anesthesia Reactions: No Hx Malignant Hyperthermia: No Has any member of the family had a problem w/ anesthesia?: No Meds Allergies/Adverse Reactions: Allergies Allergy/AdvReac Type Severity Reaction Status Date / Time Sulfa (Sulfonamide AdvReac Intermediate NAUSEA Verified 08/15/16 07:30 Antibiotics) Physical Exam - Head Exam Head Exam: ATRAUMATIC - Eye Exam Pupil Exam: NORMAL ACCOMODATION, PERRL - ENT Exam ENT Exam: Mucous Membranes Moist, Normal Exam - Neck Exam Neck exam: Positive for: Normal Inspection - Respiratory Exam Respiratory Exam: Clear to Auscultation Bilateral, NORMAL BREATHING PATTERN - Cardiovascular Exam Cardiovascular Exam: REGULAR RHYTHM, +S1, +S2, +S4, Systolic Murmur - Extremities Exam Extremities exam: Positive for: normal inspection - Back Exam Back exam: NORMAL INSPECTION - Neurological Exam Neurological exam: Alert, CN II-XII Intact, Normal Gait, Oriented x3, Reflexes Normal - Skin Skin Exam: Dry, Intact, Normal Color, Warm Results - Vital Signs Recent Vital Signs: Last Vital Signs Temp 97.1 F L 08/10/17 08:39 Pulse 72 08/10/17 12:14 Resp 20 08/10/17 08:39 BP 149/87 08/10/17 08:39 Pulse Ox 97 08/10/17 08:39 - Labs Result Diagrams: 08/10/17 07:47 08/10/17 07:47 Labs: Laboratory Results - last 24 hr 08/09/17 08/09/17 08/09/17 15:52 16:35 16:35 WBC 4.5 L RBC 3.64 L Hgb 11.1 Hct 33.3 L MCV 91.4 MCH 30.6 MCHC 33.4 RDW 13.2 Plt Count 301 MPV 6.5 L Neut % (Auto) 73.8 Lymph % (Auto) 13.0 L [place] % (Auto) 12.5 H Eos % (Auto) 0.3 Baso % (Auto) 0.4 Neut # (Auto) 3.3 Lymph # (Auto) 0.6 L [place] # (Auto) 0.6 Eos # (Auto) 0.0 Baso # (Auto) 0.0 PT 11.2 INR 1.0 APTT 27 Sodium Potassium Chloride Carbon Dioxide Anion Gap BUN Creatinine Est GFR ( Amer) Est GFR (Non-Af Amer) POC Glucose (mg/dL) 193 H Random Glucose Calcium Total Bilirubin AST ALT Alkaline Phosphatase Total Creatine Kinase CK-MB (Mass) Troponin I Total Protein Albumin Globulin Albumin/Globulin Ratio 08/09/17 08/10/17 08/10/17 16:35 00:36 07:47 WBC 3.9 L RBC 3.71 L Hgb 11.3 Hct 33.6 L MCV 90.7 MCH 30.4 MCHC 33.6 RDW 13.4 Plt Count 265 MPV 6.8 L Neut % (Auto) 61.7 Lymph % (Auto) 24.3 [place] % (Auto) 12.7 H Eos % (Auto) 0.6 Baso % (Auto) 0.7 Neut # (Auto) 2.4 Lymph # (Auto) 0.9 L [place] # (Auto) 0.5 Eos # (Auto) 0.0 Baso # (Auto) 0.0 PT INR APTT Sodium 137 Potassium 3.5 L Chloride 95 L Carbon Dioxide 28 Anion Gap 17 BUN 19 H Creatinine 0.8 Est GFR ( Amer) > 60 Est GFR (Non-Af Amer) > 60 POC Glucose (mg/dL) Random Glucose 206 H Calcium 9.2 Total Bilirubin 0.4 AST 24 ALT 20 Alkaline Phosphatase 56 Total Creatine Kinase 55 CK-MB (Mass) 0.31 Troponin I < 0.0120 0.0160 Total Protein 7.4 Albumin 3.9 Globulin 3.5 Albumin/Globulin Ratio 1.1 08/10/17 07:47 WBC RBC Hgb Hct MCV MCH MCHC RDW Plt Count MPV Neut % (Auto) Lymph % (Auto) [place] % (Auto) Eos % (Auto) Baso % (Auto) Neut # (Auto) Lymph # (Auto) [place] # (Auto) Eos # (Auto) Baso # (Auto) PT INR APTT Sodium 140 Potassium 4.3 Chloride 100 Carbon Dioxide 29 Anion Gap 15 BUN 15 Creatinine 0.8 Est GFR ( Amer) > 60 Est GFR (Non-Af Amer) > 60 POC Glucose (mg/dL) Random Glucose 81 Calcium 9.1 Total Bilirubin 0.3 AST 29 ALT 15 Alkaline Phosphatase 54 Total Creatine Kinase 49 CK-MB (Mass) 0.32 Troponin I 0.0210 Total Protein 7.1 Albumin 3.6 Globulin 3.5 Albumin/Globulin Ratio 1.0 Assessment & Plan (1) Syncope Status: Acute Comment: cardio/neuro w/u (2) Labile hypertension Status: Acute (3) Seizure Status: Chronic
[2017-08-10] MEDS: Potassium Chloride 20 mEq/15 ml LIQ UD PO SCH (17:48)
[2017-08-11] MEDS: Potassium Chloride 20 mEq/15 ml LIQ UD PO SCH ×2 (09:38→19:08)
[2017-08-11] MEDS: Metoprolol Succinate 50 mg XL Tab PO SCH (09:38)
--- NOTE | 2017-08-11 10:56 | VASCLAB ---
PROCEDURE: HISTORY: Syncope COMPARISON: None available. TECHNIQUE: Grayscale and duplex Doppler evaluation of the cervical carotid and vertebral arteries were performed. The common carotid, carotid bifurcations and cervical Internal Carotid Artery (ICA) and proximal External Carotid Artery (ECA) were evaluated. The vertebral arteries were evaluated for gross patency and flow direction. Report prepared by Kenneth Guerrero, BS, RVT FINDINGS: RIGHT CAROTID ARTERIES: 1. Common Carotid Artery: No significant focal plaque formation of the right common carotid artery. Maximum Peak Systolic velocity: 41 cm/sec: End-diastolic velocity 8 cm/sec. 2. Carotid Bifurcation: plaque formation. Maximum Peak Systolic velocity: 34 cm/sec: End-diastolic velocity 8 cm/sec. 3. Internal Carotid Artery: Plaque description: 3.1. Proximal Segment: Peak systolic velocity 47 cm/sec: End-diastolic velocity 11 cm/sec - % stenosis 0-15% 3.2. Middle Segment: Peak systolic velocity 95 cm/sec: End-diastolic velocity 22 cm/sec - % stenosis 0-15% 3.3. Distal Segment: Peak systolic velocity 115 cm/sec: End-diastolic velocity 26 cm/sec - % stenosis 0-15% 4. External Carotid Artery: No significant focal plaque formation. Peak systolic velocity 56 cm/sec 5. ICA/CCA Ratio: 2.8 LEFT CAROTID ARTERIES: 1. Common Carotid Artery: No significant focal plaque formation of the left common carotid artery. Maximum Peak Systolic velocity: 37 cm/sec: End-diastolic velocity 8 cm/sec. 2. Carotid Bifurcation: plaque formation. Maximum Peak Systolic velocity: 35 cm/sec: End-diastolic velocity 7 cm/sec. 3. Internal Carotid Artery: Plaque description: 3.1. Proximal Segment: Peak systolic velocity 50 cm/sec: End-diastolic velocity 12 cm/sec - % stenosis 0-15% 3.2. Middle Segment: Peak systolic velocity 73 cm/sec: End-diastolic velocity 20 cm/sec - % stenosis 0-15% 3.3. Distal Segment: Peak systolic velocity 48 cm/sec: End-diastolic velocity 16 cm/sec - % stenosis 0-15% 4. External Carotid Artery: No significant focal plaque formation. Peak systolic velocity 79 cm/sec 5. ICA/CCA Ratio: 2.0 VERTEBRAL ARTERIES: 1. Right Vertebral Artery: The right vertebral artery flow direction is antegrade. 2. Left Vertebral Artery: The left vertebral artery flow direction is antegrade. OTHER FINDINGS: 1. Right Brachial Blood pressure: 128 mmHg. 2. Left Brachial Blood pressure: 138 mmHg. IMPRESSION: RIGHT: Duplex scan does not suggest hemodynamically significant stenosis of the right extracranial carotid arteries. LEFT: Duplex scan does not suggest hemodynamically significant stenosis of the left extracranial carotid arteries.
[2017-08-11] MEDS ORDERED: Gadodiamide 287 MG/ML VIAL (15ML) IV ONE (12:20)
--- NOTE | 2017-08-11 13:46 | CP.PCM.PN ---
Subjective - Date & Time of Evaluation Date of Evaluation: 08/11/17 Time of Evaluation: 13:44 - Subjective Subjective: CHIEF COMPLAINTS TODAY : WEAK AND FATIGUE ROS. HEENT : N. Resp : No cough, wheezing ,pleuritic CP ,or hemoptysis Cardio : No anginal CP, PND, orthopnea, palpitation GI : No abd.pain, n/v ,diarrhea or GI bleeding . [employer] CON[employer] : No headache, vertigo, focal deficit. Musculoskel : No joint swelling , Derm : No rash Psych : Normal affect. Ext : No swelling ,calf pain PE. Pt. is alert awake in no distress. V.S As noted in the chart Head ,ear nose,throat and eyes : Normal. Neck : Supple with normal carotids. Lungs: Clear air entry. Heart : S1 & S2 normal with S4. No murmur. Abd : Soft non tender with normal bowel sounds. Neuro : Moves all ext. with no localized deficit. Ext : No edema with intact pulses.Non tender calves Derm : No rashes or decubitus ulcer. LABS/RADIOLOGY: CAROTID DOPPLER NEG FOR LESION ASSESSMENT/PLAN : CHECK NEURO W/U NO ASA PT SEVERE GASTRITIS , ON PLAVIX Objective - Vital Signs/Intake and Output Vital Signs (last 24 hours): Temp Pulse Resp BP Pulse Ox 97.7 F 85 20 173/54 H 99 08/11/17 07:30 08/11/17 07:30 08/11/17 07:30 08/11/17 07:30 08/11/17 07:30 - Medications Medications: Current Medications Alprazolam (Xanax) 0.25 mg PO DAILY PRN PRN Reason: Anxiety Stop: 08/16/17 20:43 Last Admin: 08/09/17 23:42 Dose: 0.25 mg Calcium Carbonate (Oscal) 500 mg PO DAILY [facility] Last Admin: 08/11/17 09:37 Dose: 500 mg Clopidogrel Bisulfate (Plavix) 75 mg PO DAILY [facility] Last Admin: 08/11/17 09:38 Dose: 75 mg Dicyclomine HCl (Bentyl) 10 mg PO Q8 PRN PRN Reason: abdominal pain Last Admin: 08/11/17 12:39 Dose: 10 mg Famotidine (Pepcid) 20 mg PO BID [facility] Last Admin: 08/11/17 09:38 Dose: 20 mg Lamotrigine (Lamictal) 200 mg PO BID [facility] Last Admin: 08/11/17 09:43 Dose: 200 mg Losartan Potassium (Cozaar) 50 mg PO HS [facility] Last Admin: 08/10/17 21:41 Dose: 50 mg Metoprolol Succinate (Toprol Xl) 50 mg PO DAILY [facility] Last Admin: 08/11/17 09:38 Dose: 50 mg Potassium Chloride (Potassium Chloride Oral Soln) 20 meq PO BID [facility] Stop: 08/12/17 10:01 Last Admin: 08/11/17 09:38 Dose: 20 meq Rosuvastatin Calcium (Crestor) 20 mg PO HS [facility] Last Admin: 08/10/17 21:41 Dose: 20 mg Sucralfate (Carafate Tab) 1 gm PO TID [facility] Last Admin: 08/11/17 09:37 Dose: 1 gm - Labs Labs: 08/10/17 07:47 08/10/17 07:47 PT 11.2 SECONDS (9.7-12.2) 08/09/17 16:35 INR 1.0 08/09/17 16:35 APTT 27 SECONDS (21-34) 08/09/17 16:35 Assessment and Plan (1) Syncope Status: Acute (2) Labile hypertension Status: Acute (3) Seizure Status: Chronic
--- NOTE | 2017-08-11 15:10 | MRI ---
PROCEDURE: MRI BRAIN WITH AND WITHOUT CONTRAST HISTORY: TIA/seizures COMPARISON: Noncontrast head CT from 08/09/2017. TECHNIQUE: Multiplanar, multisequence MR images of the brain were obtained with and without intravenous contrast enhancement. 10 mL Omniscan was injected intravenously. FINDINGS: HEMORRHAGE: None DWI: There are linear areas of restricted diffusion in the left paramedian anterior parietal cortex. BRAIN PARENCHYMA: There is an old infarction in the genu of the corpus callosum. There is an old lacunar infarction in the right cerebellar hemisphere the There are severe chronic microangiopathic changes. There is no mass, mass effect or abnormal extra-axial fluid collection. The midline sagittal structures are normal. ENHANCEMENT: No abnormal intracranial enhancement. VENTRICLES: There is moderate age-related global parenchymal volume loss and proportionate enlargement of the ventricles and cortical sulci. CRANIUM: There is normal bone marrow signal pattern. ORBITS: Grossly unremarkable. PARANASAL SINUSES/MASTOIDS: Predominantly clear. VASCULAR SYSTEM: There are normal signal voids in the larger intracranial arteries. OTHER FINDINGS: None . IMPRESSION: 1. 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 2. 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 3. Severe chronic microangiopathic changes and moderate age-related global parenchymal volume loss. Important findings were discussed with nurse Flor Chaparro on the floor on 08/11/2017 at 3 p.m.
--- NOTE | 2017-08-11 18:49 | CP.PCM.CON ---
History of Present Illness - History of Present Illness History of Present Illness: CONSULT DICTATED SYNCOPAL ATTACK PROBABLE COMPLEX SEIZURES MRI DWI LINIER HIGH PARIETAL STROKE - NEW ANTI PLATELETS, STATIN AND ARB CAROTID/EEG/ECHO SHE IS DISORIENTED AND COMATIVE - POST SEIZURE ? Past Patient History - Infectious Disease Hx of Infectious Diseases: None - Past Medical History & Family History Past Medical History?: Yes - Past Social History Smoking Status: Never Smoked - CARDIAC Hx Hypercholesterolemia: Yes Hx Hypertension: Yes - PULMONARY Hx Respiratory Disorders: No - NEUROLOGICAL Hx Seizures: Yes (2 MONTHS AGO) - HEENT Hx HEENT Problems: No - RENAL Hx Chronic Kidney Disease: No - ENDOCRINE/METABOLIC Hx Hypothyroidism: Yes - HEMATOLOGICAL/ONCOLOGICAL Hx Blood Disorders: No - INTEGUMENTARY Hx Dermatological Problems: No - MUSCULOSKELETAL/RHEUMATOLOGICAL Hx Osteoporosis: Yes - GASTROINTESTINAL Other/Comment: LUQ ABDOMINAL PAIN; , dizziness - GENITOURINARY/GYNECOLOGICAL Hx Genitourinary Disorders: No - PSYCHIATRIC Hx Anxiety: Yes Hx Substance Use: No - SURGICAL HISTORY Hx Surgeries: Yes Hx Musculoskeletal Surgery: Yes (2 BACK SURGERIES 30 YRS. AGO) - ANESTHESIA Hx Anesthesia: Yes Hx Anesthesia Reactions: No Hx Malignant Hyperthermia: No Has any member of the family had a problem w/ anesthesia?: No Meds Allergies/Adverse Reactions: Allergies Allergy/AdvReac Type Severity Reaction Status Date / Time Sulfa (Sulfonamide AdvReac Intermediate NAUSEA Verified 08/15/16 07:30 Antibiotics) - Medications Medications: Current Medications Alprazolam (Xanax) 0.25 mg PO DAILY PRN PRN Reason: Anxiety Stop: 08/16/17 20:43 Last Admin: 08/09/17 23:42 Dose: 0.25 mg Calcium Carbonate (Oscal) 500 mg PO DAILY [facility] Last Admin: 08/11/17 09:37 Dose: 500 mg Clopidogrel Bisulfate (Plavix) 75 mg PO DAILY [facility] Last Admin: 08/11/17 09:38 Dose: 75 mg Dicyclomine HCl (Bentyl) 10 mg PO Q8 PRN PRN Reason: abdominal pain Last Admin: 08/11/17 12:39 Dose: 10 mg Famotidine (Pepcid) 20 mg PO BID [facility] Last Admin: 08/11/17 09:38 Dose: 20 mg Lamotrigine (Lamictal) 200 mg PO BID [facility] Last Admin: 08/11/17 09:43 Dose: 200 mg Losartan Potassium (Cozaar) 50 mg PO HS [facility] Last Admin: 08/10/17 21:41 Dose: 50 mg Meclizine HCl (Antivert) 12.5 mg PO Q8 [facility] Metoprolol Succinate (Toprol Xl) 50 mg PO DAILY [facility] Last Admin: 08/11/17 09:38 Dose: 50 mg Potassium Chloride (Potassium Chloride Oral Soln) 20 meq PO BID [facility] Stop: 08/12/17 10:01 Last Admin: 08/11/17 09:38 Dose: 20 meq Rosuvastatin Calcium (Crestor) 20 mg PO HS [facility] Last Admin: 08/10/17 21:41 Dose: 20 mg Rosuvastatin Calcium (Crestor) 5 mg PO HS [facility] Sucralfate (Carafate Tab) 1 gm PO TID [facility] Last Admin: 08/11/17 14:48 Dose: 1 gm Results - Vital Signs Recent Vital Signs: Last Vital Signs Temp 97.4 F L 08/11/17 15:07 Pulse 51 L 08/11/17 15:07 Resp 18 08/11/17 15:07 BP 181/75 H 08/11/17 15:07 Pulse Ox 100 08/11/17 15:07 - Labs Result Diagrams: 08/10/17 07:47 08/10/17 07:47
--- NOTE | 2017-08-11 18:56 | CARD ---
APPROVED REPORT EXAM: Two-dimensional and M-mode echocardiogram with Doppler and color Doppler. Other Information Quality : GoodRhythm : INDICATION Syncope RISK FACTORS Hypertension Hyperlipidemia 2D DIMENSIONS IVSd0.6 (0.7-1.1cm)LVDd3.4 (3.9-5.9cm) PWd0.9 (0.7-1.1cm)LVDs1.5 (2.5-4.0cm) FS (%) 56.0 %LVEF (%)87.3 (>50%) M-Mode DIMENSIONS RVDd1.72 (2.1-3.2cm)Left Atrium (MM)3.91 (2.5-4.0cm) IVSd0.81 (0.7-1.1cm)Aortic Root2.75 (2.2-3.7cm) LVDd3.99 (4.0-5.6cm)Aortic Cusp Exc.1.75 (1.5-2.0cm) PWd0.75 (0.7-1.1cm)FS (%) 43 % LVDs2.29 (2.0-3.8cm)LVEF (%)74 (>50%) Mitral Valve MV E Mxgffuwx68.2cm/sMV A Ynmsepzs14.2cm/sE/A ratio0.8 TDI E/Lateral E'0.0E/Medial E'0.0 Tricuspid Valve TR Peak [id number] Peak [id number] LEFT VENTRICLE The left ventricle is normal size. There is normal left ventricular wall thickness. The left ventricular function is normal. The left ventricular ejection fraction is within the normal range. About 65% No regional wall motion abnormalities noted. No left ventricle thrombus noted on this study. There is no ventricular septal defect visualized. There is no left ventricular aneurysm. There is no mass noted in the left ventricle. RIGHT VENTRICLE The right ventricle is normal size. There is normal right ventricular wall thickness. The right ventricular systolic function is normal. ATRIA The left atrium size is normal. The right atrium size is normal. The interatrial septum is intact with no evidence for an atrial septal defect. AORTIC VALVE The aortic valve is normal in structure and function. No aortic regurgitation is present. There is no aortic valvular stenosis. There is no aortic valvular vegetation. MITRAL VALVE The mitral valve is normal in structure and function. There is no evidence of mitral valve prolapse. There is no mitral valve stenosis. There is racemitral valve regurgitation noted. TRICUSPID VALVE The tricuspid valve is normal in structure and function. There is trace tricuspid valve regurgitation noted. There is no tricuspid valve prolapse or vegetation. There is no tricuspid valve stenosis. PULMONIC VALVE The pulmonary valve is normal in structure and function. There is no pulmonic valvular regurgitation. There is no pulmonic valvular stenosis. GREAT VESSELS The aortic root is normal in size. The ascending aorta is normal in size. The pulmonary artery is normal. The IVC is normal in size and collapses >50% with inspiration. PERICARDIAL EFFUSION The pericardium appears normal. There is no pleural effusion. <Conclusion> Normal left ventricular systolic function and Doppler.
--- NOTE | 2017-08-11 19:13 | CARD ---
APPROVED REPORT EKG Measurement Heart [id number] <Conclusion> Normal sinus rhythm Minimal voltage criteria for LVH, may be normal variant Borderline ECG
[2017-08-11 23:24] LABS: PROLACTIN 19.8 ng/mL (3.0-18.9)
--- NOTE | 2017-08-12 05:59 | CON ---
DATE: ATTENDING PHYSICIAN: Star Olivier MD. LOCATION: Room number 665, bed A. REASON FOR CONSULTATION: Abnormal MRI. CHIEF COMPLAINT: The patient was brought into [facility] by her via EMS with history of loss of consciousness at home. During her hospitalization, the patient did have MRI of the brain which was abnormal and I was called in for further evaluation and management. HISTORY OF PRESENT ILLNESS: Ms. Eva Dennis is a 81-year-old thinly built, right-handed female who is known [facility]. Her seizures have been well controlled with lamotrigine, breakthrough seizures, usually it happens once in 3 months to 6 months which manifested as change in mental status and wandering signs. Recently, she did not have any generalized tonic-clonic seizures. The patient was seen as outpatient last week for the followup evaluation and refill her medication. Prior to the admission, the patient was lightheaded and leaned on her 's hand with unresponsiveness. Immediately 911 was called and the patient was brought into hospital for further evaluation. In the hospital, the patient did have MRI of the brain which showed abnormal signal suggestive of acute stroke process.. The patient did not have any seizures during the hospitalization being witnessed. No bowel or bladder incontinence. PAST MEDICAL HISTORY: Hypertension, dyslipidemia, hypothyroidism, osteoporosis and seizures. PERSONAL HISTORY: Denies smoking or alcohol use. ALLERGIES: NO KNOWN ALLERGIES. REVIEW OF SYSTEMS: A 12-point system being reviewed from neuro, seizures and change in mental status with abnormal MRI. MEDICATIONS: Meclizine, Bentyl, Carafate, Cozaar, Crestor, Lamictal, Os-Ravinder, Pepcid, Plavix, Toprol. PHYSICAL EXAMINATION: VITAL SIGNS: Blood pressure 181/75, mean artery pressure of 110, respiratory rate 16, temperature afebrile. NECK: Supple. No carotid bruits. HEART: Sounds regular. CHEST: Fair air entry. EXTREMITIES: No edema in legs. NEUROLOGICAL: Mental status examination, she is awake, alert, oriented to person only. She could recognize my name by looking at me; however, she was combative and misusing the words. She is walking ambulatory on her own. Cranial nerve examination, respond to visual threat. Pupil reactive to light. Speech is fluent. No facial or sensory deficit. No facial asymmetry. Hearing is normal. Tongue is midline. Good gag. Motor examination, she could move all four extremities. Deep tendon reflexes are 1+ on either side. Plantars are downgoing. Sensory examination, respond to pain symmetrically on both sides. Coordination, she does not want to follow the commands. Gait ambulatory with slow steps. WORKUP: MRI of the brain, which was reviewed by me. Linear diffusion-weighted image showed linear acute stroke process over the corpus callosum on her left side. The patient also showed multiple periventricular ischemic changes and gross atrophy. EKG, sinus rhythm. BLOOD WORKUP: WBC 3.9, hemoglobin 11.3, hematocrit 33.6, platelet 265. PT 11.2, INR 1.1 and PTT 227. Sodium 140, potassium 4.3, chloride 100, bicarbonate 29, BUN 15, GFR more than 60, glucose 81. CONCLUSION: Ms. Eva Dennis has been presenting as per neurological examination with; 1. Bilateral cerebral dysfunction with change in mental status consistent with possible postictal phenomena. 2. Considering the MRI findings consistent with acute stroke process at middle cerebral artery and anterior cerebral artery territories suggestive of either hypoperfusion syndrome versus embolic source. RECOMMENDATIONS: 1. Continue antiplatelets, angiotensin receptor blockers with statins. 2. Electroencephalogram. 3. Continue lamotrigine. 4. Agree with one-to-one to prevent self injuries and fall. 5. The patient's condition being discussed; however, she is confused, she could not able to follow any recommendations. The patient will be followed closely with you. Jeremy Baird MD
[2017-08-12 07:50] VITALS: RESP 20
[2017-08-12] MEDS: Metoprolol Succinate 50 mg XL Tab PO SCH (09:51)
[2017-08-12] MEDS: Potassium Chloride 20 mEq/15 ml LIQ UD PO SCH (09:51)
--- NOTE | 2017-08-12 15:20 | CP.PCM.PN ---
Subjective - Date & Time of Evaluation Date of Evaluation: 08/12/17 Time of Evaluation: 15:19 - Subjective Subjective: periods of confusion last nite . r. leg weakness MRI new acute infarct D/W FAMILY AND PT . HAS AGREED TO GO TO [facility] Objective - Vital Signs/Intake and Output Vital Signs (last 24 hours): Temp Pulse Resp BP Pulse Ox 97.2 F L 69 20 167/88 H 99 08/12/17 07:00 08/12/17 07:50 08/12/17 07:00 08/12/17 07:00 08/12/17 07:00 Intake and Output: 08/12/17 08/12/17 11:59 23:59 Intake Total 350 Balance 350 - Medications Medications: Current Medications Alprazolam (Xanax) 0.25 mg PO DAILY PRN PRN Reason: Anxiety Stop: 08/16/17 20:43 Last Admin: 08/09/17 23:42 Dose: 0.25 mg Calcium Carbonate (Oscal) 500 mg PO DAILY [facility] Last Admin: 08/12/17 09:51 Dose: 500 mg Clopidogrel Bisulfate (Plavix) 75 mg PO DAILY [facility] Last Admin: 08/12/17 09:51 Dose: 75 mg Dicyclomine HCl (Bentyl) 10 mg PO Q8 PRN PRN Reason: abdominal pain Last Admin: 08/11/17 12:39 Dose: 10 mg Famotidine (Pepcid) 20 mg PO BID [facility] Last Admin: 08/12/17 09:51 Dose: 20 mg Lamotrigine (Lamictal) 200 mg PO BID [facility] Last Admin: 08/12/17 09:51 Dose: 200 mg Losartan Potassium (Cozaar) 50 mg PO HS [facility] Last Admin: 08/11/17 22:51 Dose: Not Given Meclizine HCl (Antivert) 12.5 mg PO Q8 [facility] Last Admin: 08/12/17 13:31 Dose: 12.5 mg Metoprolol Succinate (Toprol Xl) 50 mg PO DAILY [facility] Last Admin: 08/12/17 09:51 Dose: 50 mg Rosuvastatin Calcium (Crestor) 20 mg PO HS [facility] Last Admin: 08/11/17 22:51 Dose: Not Given Rosuvastatin Calcium (Crestor) 5 mg PO [facility] Last Admin: 08/11/17 22:51 Dose: Not Given Sucralfate (Carafate Tab) 1 gm PO TID [facility] Last Admin: 08/12/17 13:31 Dose: 1 gm - Labs Labs: 08/10/17 07:47 08/10/17 07:47 PT 11.2 SECONDS (9.7-12.2) 08/09/17 16:35 INR 1.0 08/09/17 16:35 APTT 27 SECONDS (21-34) 08/09/17 16:35 Assessment and Plan (1) Syncope Status: Acute (2) Labile hypertension Status: Acute (3) Seizure Status: Chronic
[2017-08-12 17:33] LABS: BASO % 0.7 % (0.0-2.0); EOS % 0.4 % (0.0-4.0); HEMOGLOBIN 11.8 g/dL (11.0-16.0); LYMPH # 0.8 K/uL (1.0-4.3); LYMPH % 17.7 % (20.0-40.0); MEAN CELL VOLUME 90.9 fL (81.0-99.0); MEAN CORPUSCULAR HGB CONC 34.1 g/dL (33.0-37.0); MEAN PLATELET VOLUME 6.7 fL (7.2-11.7); MONO # 0.4 K/uL (0.0-0.8); MONO % 9.8 % (0.0-10.0); NEUT # 3.1 K/uL (1.8-7.0); NEUT % 71.4 % (50.0-75.0); RBC 3.81 Mil/uL (3.80-5.20); RED CELL DISTRIBUTION WIDTH 13.2 % (11.5-14.5); WHITE BLOOD COUNT 4.4 K/uL (4.8-10.8)
[2017-08-12 17:47] LABS: BLOOD UREA NITROGEN 11 mg/dL (7-17); CALCIUM 9.5 mg/dl (8.6-10.4); GFR AFRICAN-AMERICAN > 60; GFR NON-AFRICAN AMERICAN > 60
--- NOTE | 2017-08-12 21:36 | CARD ---
APPROVED REPORT EKG Measurement Heart [id number] <Conclusion> Normal sinus rhythm Normal ECG
[2017-08-13 00:28] VITALS: O2SAT 98
[2017-08-13 08:43] VITALS: TEMP 97.3
[2017-08-13] MEDS: Metoprolol Succinate 50 mg XL Tab PO SCH (10:21)
--- NOTE | 2017-08-13 11:49 | CP.PCM.PN ---
Subjective - Date & Time of Evaluation Date of Evaluation: 08/13/17 Time of Evaluation: 11:48 - Subjective Subjective: LESS CONFUSED VS STABLE NO CRANIAL NERVE PALSY R. LOWER EXT WEAKNESS [place] , [place] Objective - Vital Signs/Intake and Output Vital Signs (last 24 hours): Temp Pulse Resp BP Pulse Ox 97.3 F L 71 20 173/94 H 98 08/13/17 08:41 08/13/17 08:41 08/13/17 08:41 08/13/17 08:41 08/13/17 08:41 Intake and Output: 08/12/17 08/13/17 23:59 11:59 Intake Total 350 120 Balance 350 120 - Medications Medications: Current Medications Alprazolam (Xanax) 0.25 mg PO DAILY PRN PRN Reason: Anxiety Stop: 08/16/17 20:43 Last Admin: 08/09/17 23:42 Dose: 0.25 mg Calcium Carbonate (Oscal) 500 mg PO DAILY [facility] Last Admin: 08/13/17 10:20 Dose: 500 mg Clopidogrel Bisulfate (Plavix) 75 mg PO DAILY [facility] Last Admin: 08/13/17 10:21 Dose: 75 mg Dicyclomine HCl (Bentyl) 10 mg PO Q8 PRN PRN Reason: abdominal pain Last Admin: 08/11/17 12:39 Dose: 10 mg Famotidine (Pepcid) 20 mg PO BID [facility] Last Admin: 08/13/17 10:21 Dose: 20 mg Lamotrigine (Lamictal) 200 mg PO BID [facility] Last Admin: 08/13/17 10:20 Dose: 200 mg Losartan Potassium (Cozaar) 50 mg PO HS [facility] Last Admin: 08/12/17 21:26 Dose: 50 mg Meclizine HCl (Antivert) 12.5 mg PO Q8 [facility] Last Admin: 08/13/17 06:33 Dose: Not Given Metoprolol Succinate (Toprol Xl) 50 mg PO DAILY [facility] Last Admin: 08/13/17 10:21 Dose: 50 mg Rosuvastatin Calcium (Crestor) 20 mg PO HS [facility] Last Admin: 08/12/17 21:26 Dose: 20 mg Sucralfate (Carafate Tab) 1 gm PO TID [facility] Last Admin: 08/13/17 10:21 Dose: 1 gm - Labs Labs: 08/12/17 17:17 08/12/17 17:17 PT 11.2 SECONDS (9.7-12.2) 08/09/17 16:35 INR 1.0 08/09/17 16:35 APTT 27 SECONDS (21-34) 08/09/17 16:35 Assessment and Plan (1) Syncope Status: Acute (2) Labile hypertension Status: Acute (3) Seizure Status: Chronic
--- NOTE | 2017-08-13 12:12 | CP.PCM.PN ---
Subjective - Date & Time of Evaluation Date of Evaluation: 08/13/17 Time of Evaluation: 11:40 - Subjective Subjective: Patient seen today ,alert, ox3 states feels better, denies any chest pain, sob , palpitations, dizziness improved , c/o weakness to the lower extremity No overnight events reported by RN No further episode of confusion reported by RN Objective - Vital Signs/Intake and Output Vital Signs (last 24 hours): Temp Pulse Resp BP Pulse Ox 97.3 F L 71 20 173/94 H 98 08/13/17 08:41 08/13/17 08:41 08/13/17 08:41 08/13/17 08:41 08/13/17 08:41 Intake and Output: 08/13/17 08/13/17 06:59 18:59 Intake Total 120 Balance 120 - Medications Medications: Current Medications Alprazolam (Xanax) 0.25 mg PO DAILY PRN PRN Reason: Anxiety Stop: 08/16/17 20:43 Last Admin: 08/09/17 23:42 Dose: 0.25 mg Calcium Carbonate (Oscal) 500 mg PO DAILY [facility] Last Admin: 08/13/17 10:20 Dose: 500 mg Clopidogrel Bisulfate (Plavix) 75 mg PO DAILY [facility] Last Admin: 08/13/17 10:21 Dose: 75 mg Dicyclomine HCl (Bentyl) 10 mg PO Q8 PRN PRN Reason: abdominal pain Last Admin: 08/11/17 12:39 Dose: 10 mg Famotidine (Pepcid) 20 mg PO BID [facility] Last Admin: 08/13/17 10:21 Dose: 20 mg Lamotrigine (Lamictal) 200 mg PO BID [facility] Last Admin: 08/13/17 10:20 Dose: 200 mg Losartan Potassium (Cozaar) 50 mg PO HS [facility] Last Admin: 08/12/17 21:26 Dose: 50 mg Meclizine HCl (Antivert) 12.5 mg PO Q8 [facility] Last Admin: 08/13/17 06:33 Dose: Not Given Metoprolol Succinate (Toprol Xl) 50 mg PO DAILY [facility] Last Admin: 08/13/17 10:21 Dose: 50 mg Rosuvastatin Calcium (Crestor) 20 mg PO HS [facility] Last Admin: 08/12/17 21:26 Dose: 20 mg Sucralfate (Carafate Tab) 1 gm PO TID [facility] Last Admin: 08/13/17 10:21 Dose: 1 gm - Labs Labs: 08/12/17 17:17 08/12/17 17:17 PT 11.2 SECONDS (9.7-12.2) 08/09/17 16:35 INR 1.0 08/09/17 16:35 APTT 27 SECONDS (21-34) 08/09/17 16:35 - Constitutional Appears: Well, No Acute Distress - ENT Exam ENT Exam: Mucous Membranes Moist - Respiratory Exam Respiratory Exam: Clear to Ausculation Bilateral, NORMAL BREATHING PATTERN - Cardiovascular Exam Cardiovascular Exam: REGULAR RHYTHM, +S1, +S2 - Neurological Exam Neurological Exam: Alert, Awake, Oriented x3 Assessment and Plan - Assessment and Plan (Free Text) Assessment: A/P 81 yr old female with pmhx of Anxiety, HTN, Hypercholesterolemia, Hypothyroidism, Osteoporosis, Seizures admitted with syncope MRI- 1. 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 3. Severe chronic microangiopathic changes and moderate age-related global parenchymal volume loss. ECHO- Normal EF Patient accepted at [facility] for rehab and patient and family in agreement D/w Dr. Olivier , stable for discharge to [facility] today and Dr. Olivier will follow the patient at [facility] Discharge plan discussed with patient who understands and agrees with plan
[2017-08-13 14:35] VITALS: BP 156/80
[2017-08-13 16:30] VITALS: PULSE 75
--- NOTE | 2017-08-13 19:10 | PN ---
DATE: 08/13/2017 TIME OF EVALUATION: 06:45 a.m. NEUROLOGICAL PROBLEM: Change in mental status, syncopal attack with acute ischemic changes in the brain probably embolic source. PHYSICAL EXAMINATION: VITAL SIGNS: Blood pressure 155/79 with mean arterial pressure of 104, respiratory rate 16, temperature 97.6, pulse rate 66 and regular. NEUROLOGIC: The patient is spontaneously aroused when I was standing next to her. She is oriented to person, place, and time. She apologized the event what she went through reacted against the physician and the nurses 2 days ago. She could recall the event surprisingly. She denies any complaints at present except generalized weakness. On examination, visual field is intact. Pupils reactive to light. Extraocular movement normal. Motor examination, moves all 4 extremities against gravity. Deep tendon reflexes are symmetric on either side. Plantars are downgoing. Her recent workup carotid Doppler, no significant stenosis. Echocardiogram, normal ejection fraction with normal atrium and normal left ventricular function. The patient is on antiplatelets, angiotensin receptor blockers and statins. The patient also taking Lamictal 200 mg twice a day, which should be continued. From neurological point of view, the patient is cleared. She can be discharged to the acute rehab phase. The patient will be followed as outpatient. Jeremy Baird MD
--- NOTE | 2017-08-14 13:48 | CP.PCM.DIS ---
Provider - Provider Date of Admission: 08/09/17 17:28 Attending physician: Star Olivier MD Time Spent in preparation of Discharge (in minutes): 30 Diagnosis - Discharge Diagnosis (1) Syncope Status: Acute (2) Labile hypertension Status: Acute (3) Seizure Status: Chronic Hospital Course - Lab Results Lab Results: Most Recent Lab Values WBC 4.4 K/uL (4.8-10.8) L 08/12/17 17:17 RBC 3.81 Mil/uL (3.80-5.20) 08/12/17 17:17 Hgb 11.8 g/dL (11.0-16.0) 08/12/17 17:17 Hct 34.7 % (34.0-47.0) 08/12/17 17:17 MCV 90.9 fL (81.0-99.0) 08/12/17 17:17 MCH 31.0 pg (27.0-31.0) 08/12/17 17:17 MCHC 34.1 g/dL (33.0-37.0) 08/12/17 17:17 RDW 13.2 % (11.5-14.5) 08/12/17 17:17 Plt Count 308 K/uL (130-400) 08/12/17 17:17 MPV 6.7 fL (7.2-11.7) L 08/12/17 17:17 Neut % (Auto) 71.4 % (50.0-75.0) 08/12/17 17:17 Lymph % (Auto) 17.7 % (20.0-40.0) L 08/12/17 17:17 [place] % (Auto) 9.8 % (0.0-10.0) 08/12/17 17:17 Eos % (Auto) 0.4 % (0.0-4.0) 08/12/17 17:17 Baso % (Auto) 0.7 % (0.0-2.0) 08/12/17 17:17 Neut # (Auto) 3.1 K/uL (1.8-7.0) 08/12/17 17:17 Lymph # (Auto) 0.8 K/uL (1.0-4.3) L 08/12/17 17:17 [place] # (Auto) 0.4 K/uL (0.0-0.8) 08/12/17 17:17 Eos # (Auto) 0.0 K/uL (0.0-0.7) 08/12/17 17:17 Baso # (Auto) 0.0 K/uL (0.0-0.2) 08/12/17 17:17 PT 11.2 SECONDS (9.7-12.2) 08/09/17 16:35 INR 1.0 08/09/17 16:35 APTT 27 SECONDS (21-34) 08/09/17 16:35 Sodium 136 mmol/L (132-148) 08/12/17 17:17 Potassium 4.5 mmol/L (3.6-5.2) 08/12/17 17:17 Chloride 92 mmol/L (98-107) L 08/12/17 17:17 Carbon Dioxide 31 mmol/L (22-30) H 08/12/17 17:17 Anion Gap 17 (10-20) 08/12/17 17:17 BUN 11 mg/dL (7-17) 08/12/17 17:17 Creatinine 0.8 mg/dL (0.7-1.2) 08/12/17 17:17 Est GFR ( Amer) > 60 08/12/17 17:17 Est GFR (Non-Af Amer) > 60 08/12/17 17:17 POC Glucose (mg/dL) 100 mg/dL (65-110) 08/11/17 22:50 Random Glucose 106 mg/dL (65-105) H 08/12/17 17:17 Calcium 9.5 mg/dl (8.6-10.4) 08/12/17 17:17 Total Bilirubin 0.3 mg/dL (0.2-1.3) 08/10/17 07:47 AST 29 U/L (14-36) 08/10/17 07:47 ALT 15 U/L (9-52) 08/10/17 07:47 Alkaline Phosphatase 54 U/L (38-126) 08/10/17 07:47 Total Creatine Kinase 49 U/L (30-135) 08/10/17 07:47 CK-MB (Mass) 0.32 ng/mL (0.0-3.38) 03/19/18 07:47 Troponin I 0.0210 ng/mL (0.00-0.120) 08/10/17 07:47 Total Protein 7.1 g/dL (6.3-8.3) 08/10/17 07:47 Albumin 3.6 g/dL (3.5-5.0) 08/10/17 07:47 Globulin 3.5 gm/dL (2.2-3.9) 08/10/17 07:47 Albumin/Globulin Ratio 1.0 (1.0-2.1) 08/10/17 07:47 Triglycerides 54 mg/dL (0-149) 08/11/17 22:40 Cholesterol 191 mg/dL (0-199) 08/11/17 22:40 LDL Cholesterol Direct 93 mg/dL (0-129) 08/11/17 22:40 HDL Cholesterol 54 mg/dL (30-70) 08/11/17 22:40 Homocysteine 8.0 umol/L (4.7-12.6) 08/11/17 22:40 TSH 3rd Generation 3.30 mIU/L (0.46-4.68) 08/11/17 22:40 Prolactin 19.8 ng/mL (3.0-18.9) H 08/11/17 22:40 - Hospital Course Hospital Course: 81 yo female, hx htn hld, presents sp syncope. as per , pt was eating breakfast, then got up, "felt dizzy" and "passed out in his arms". felt at baseline previous. at this time, states symptoms improved. no cp, sob, abd afsaneh H/O SEIZURES . NO WITNESSED SEIZURES MRI OF BRAIN SHOWED NEW CEREBRAL INFARCT IN THE R MCA TERRITORY CAROTID DOPPLER NEG PT WAS GIVEN PLAVIX THERE WAS NO DEF FOCAL DEFICIT PT STILL HAD UNSTEADY GAIT PT WAS TRANSFERRED TO [facility] Discharge Exam - Head Exam Head Exam: ATRAUMATIC Discharge Plan - Follow Up Plan Condition: STABLE Disposition: REHAB FACILITY/REHAB UNIT Instructions: Heart Healthy Diet, Stroke (DC), Seizures, Adult (DC), Syncope ( Fainting) (DC) Additional Instructions: Please admit patient under Dr. Olivier service - Call Dr. Olivier upon patient arrival to [facility] facility Continue medication as per med.rec. PT/OT as per facility protocol Please do cbc, bmp on Thursday Referrals: Jeremy Baird MD [Staff Provider] - Star Olivier MD [Staff Provider] -
[2017-08-16] MEDS ORDERED: FOSAMAX PO SCH (10:00)
== END 2017-08-13 17:21 | DRG 65 ==
LOC: C.ER 15:44 → C.9E 17:28 → C.6T 18:02
PROVIDERS: ADMIT Internal Medicine Cardiovascular Disease; ATTEND Internal Medicine Cardiovascular Disease
DX: I63.512 Cerebral infarction due to unspecified occlusion or stenosis of left middle cerebral artery (principal); G40.911 Epilepsy, unspecified, intractable, with status epilepticus; E03.9 Hypothyroidism, unspecified; I10 Essential (primary) hypertension; E78.5 Hyperlipidemia, unspecified; I65.29 Occlusion and stenosis of unspecified carotid artery; M81.0 Age-related osteoporosis without current pathological fracture; E78.00 Pure hypercholesterolemia, unspecified

== ENCOUNTER 2017-11-06 15:56 | Inpatient (IN) | payer MEDICARE ==
[2017-11-06 15:57] VITALS: BMI 17.6
--- NOTE | 2017-11-06 17:04 | C.PDOC ---
History Of Present Illness 82 y/o female presents to ED with c/o abdominal pain, nausea and vomiting for 2 days associated with dizziness. Patient states he takes Bentyl and took some today with no improvement. Patient denies fever, recent travel, diarrhea, dysuria or any other complaints at this time. Time Seen by Provider: 11/06/17 16:32 Chief Complaint (Nursing): Dizziness/Lightheaded History Per: Patient History/Exam Limitations: no limitations Onset/Duration Of Symptoms: Days Current Symptoms Are (Timing): Still Present Past Medical History Reviewed: Historical Data, Nursing Documentation, Vital Signs Vital Signs: Last Vital Signs Temp 98.6 F 11/06/17 16:18 Pulse 56 L 11/06/17 18:21 Resp 16 11/06/17 18:21 BP 191/83 H 11/06/17 18:21 Pulse Ox 98 11/06/17 18:29 - Medical History PMH: Anxiety, HTN, Hypercholesterolemia, Hypothyroidism, Osteoporosis, Seizures (2 MONTHS AGO) Surgical History: Back Surgery, Endoscopy - [facility] Procedures COLONOSCOPY (07/25/14) ESOPHAGOGASTRODUODENOSCOPY [EGD] W/CLOSED BIOPSY (07/25/14) Family History: States: No Known Family Hx - Social History Hx Tobacco Use: No Hx Alcohol Use: No Hx Substance Use: No - Immunization History Hx Tetanus Toxoid Vaccination: No Hx Influenza Vaccination: Yes Hx Pneumococcal Vaccination: No Review Of Systems Constitutional: Negative for: Fever, Chills Gastrointestinal: Positive for: Nausea, Vomiting, Abdominal Pain Genitourinary: Negative for: Dysuria Skin: Negative for: Rash Neurological: Positive for: Dizziness. Negative for: Weakness, Numbness, Headache Physical Exam - Physical Exam Appears: Non-toxic, No Acute Distress Skin: Warm, Dry, No Rash Head: Atraumatic, Normacephalic Eye(s): bilateral: Normal Inspection Oral Mucosa: Moist Neck: Normal ROM, Supple Cardiovascular: Rhythm Regular Respiratory: Normal Breath Sounds, No Rales, No Rhonchi, No Wheezing Gastrointestinal/Abdominal: Soft, No Tenderness, No Guarding, No Rebound Neurological/Psych: Oriented x3, Normal Speech, Normal Cognition ED Course And Treatment - Laboratory Results Result Diagrams: 11/06/17 17:04 11/06/17 17:04 Lab Interpretation: Normal (bnp/trop neg.) ECG: Interpreted By Me ECG Rhythm: Sinus Rhythm ECG Interpretation: Normal Rate From EC O2 Sat by Pulse Oximetry: 98 (RA) Pulse Ox Interpretation: Normal - Radiology CXR: Interpreted by Me CXR Interpretation: Yes: No Acute Disease - Other Rad abd x 2 X-Ray: Interpreted by Me (abd x 2 +FOS) Reevaluation Time: 18:40 Reassessment Condition: Improved Medical Decision Making Medical Decision Making: nausea/vomiting constipation workup neg. Disposition Doctor Will See Patient In The: Office Counseled Patient/Family Regarding: Studies Performed, Diagnosis - Disposition Disposition: HOME/ ROUTINE Disposition Time: 18:40 Condition: GOOD Forms: [facility] ([place]) - Clinical Impression Clinical Impression: Vomiting - Scribe Statement The provider has reviewed the documentation as recorded by the Marium Bradley All medical record entries made by the Rogersibkarlee were at my direction and personally dictated by me. I have reviewed the chart and agree that the record accurately reflects my personal performance of the history, physical exam, medical decision making, and the department course for this patient. I have also personally directed, reviewed, and agree with the discharge instructions and disposition.
[2017-11-06 17:14] LABS: BASO % 0.4 % (0.0-2.0); HEMOGLOBIN 11.9 g/dL (11.0-16.0); LYMPH # 0.5 K/uL (1.0-4.3); LYMPH % 8.7 % (20.0-40.0); MEAN CELL VOLUME 88.4 fL (81.0-99.0); MEAN CORPUSCULAR HEMOGLOBIN 30.2 pg (27.0-31.0); MEAN CORPUSCULAR HGB CONC 34.2 g/dL (33.0-37.0); MEAN PLATELET VOLUME 6.6 fL (7.2-11.7); MONO # 0.2 K/uL (0.0-0.8); MONO % 3.2 % (0.0-10.0); NEUT # 4.7 K/uL (1.8-7.0); NEUT % 87.7 % (50.0-75.0); NRBC % 0.1 % (0.0-2.0); PLATELET COUNT 222 K/uL (130-400); RBC 3.95 Mil/uL (3.80-5.20); RED CELL DISTRIBUTION WIDTH 13.6 % (11.5-14.5); WHITE BLOOD COUNT 5.3 K/uL (4.8-10.8)
[2017-11-06 17:21] LABS: ALB/GLOB RATIO 1.3 (1.0-2.1); ALBUMIN 4.8 g/dL (3.5-5.0); ALT/SGPT 19 U/L (9-52); AST/SGOT 38 U/L (14-36); BLOOD UREA NITROGEN 10 mg/dL (7-17); CALCIUM 9.6 mg/dl (8.6-10.4); GFR AFRICAN-AMERICAN > 60; GFR NON-AFRICAN AMERICAN > 60
[2017-11-06 17:32] LABS: B-TYPE NATRIURETIC PEPTIDE 665 pg/mL (0-900)
--- NOTE | 2017-11-06 18:09 | RAD ---
PROCEDURE: Radiographs of the chest and abdomen (obstructive series) HISTORY: Abdominal pain COMPARISON: No prior. TECHNIQUE: AP radiograph of the chest, with upright and supine radiographs of the abdomen. FINDINGS: CHEST: Lungs: Clear. Cardiovascular: Normal size heart. No pulmonary vascular congestion. Pleura: No pleural fluid. No pneumothorax. Other findings: None. ABDOMEN AND PELVIS: Bowel: Constipation and fecal impaction Free air: None. Bones: Unremarkable. Other findings: None. IMPRESSION: No acute findings related to/accounting for the clinical presentation. Concordant results with the preliminary interpretation rendered by the emergency department physician procedure.
[2017-11-06 18:28] LABS: SQUAMOUS EPITHIAL 1 /hpf (0-5); URINE AMORPHOUS SEDIMENT FEW /ul (<OCC); URINE BACTERIA RARE (<OCC); URINE BILIRUBIN NEGATIVE (NEGATIVE); URINE BLOOD NEGATIVE (NEGATIVE); URINE CLARITY Hazy (Clear); URINE COLOR Yellow (YELLOW); URINE GLUCOSE (UA) NORMAL (Normal); URINE LEUKOCYTE ESTERASE 3+ Leu/uL (Negative); URINE PROTEIN NEGATIVE (NEGATIVE); URINE UROBILINOGEN NORMAL mg/dL (0.2-1.0)
[2017-11-06] MEDS ORDERED: Sodium Chloride 0.9% 1,000 ML IV ONE (18:58)
[2017-11-06 19:47] LABS: BANDS 1 % (0-2); LYMPHOCYTE 7 % (20-40); MONOCYTE 4 % (0-10); NEUTROPHIL 88 % (50-75); PLATELET ESTIMATE NORMAL (NORMAL); TOTAL CELLS COUNTED 100
[2017-11-06 19:48] LABS: MICROCYTOSIS SLIGHT; OVALOCYTES SLIGHT
[2017-11-07 05:26] LABS: BASO % 0.4 % (0.0-2.0); EOS % 0.4 % (0.0-4.0); LYMPH # 0.7 K/uL (1.0-4.3); LYMPH % 15.9 % (20.0-40.0); MEAN CELL VOLUME 88.4 fL (81.0-99.0); MEAN CORPUSCULAR HEMOGLOBIN 30.3 pg (27.0-31.0); MEAN CORPUSCULAR HGB CONC 34.3 g/dL (33.0-37.0); MEAN PLATELET VOLUME 6.6 fL (7.2-11.7); MONO # 0.6 K/uL (0.0-0.8); MONO % 12.8 % (0.0-10.0); NEUT # 3.2 K/uL (1.8-7.0); NEUT % 70.5 % (50.0-75.0); NRBC % 0.1 % (0.0-2.0); RBC 3.95 Mil/uL (3.80-5.20); RED CELL DISTRIBUTION WIDTH 13.9 % (11.5-14.5); WHITE BLOOD COUNT 4.5 K/uL (4.8-10.8)
[2017-11-07 05:50] LABS: CK-MB 0.62 ng/mL (0.0-3.38)
[2017-11-07 06:11] LABS: ALB/GLOB RATIO 1.3 (1.0-2.1); ALBUMIN 4.1 g/dL (3.5-5.0); ALT/SGPT 15 U/L (9-52); AST/SGOT 32 U/L (14-36); BLOOD UREA NITROGEN 11 mg/dL (7-17); CALCIUM 9.3 mg/dl (8.6-10.4); GFR AFRICAN-AMERICAN > 60; GFR NON-AFRICAN AMERICAN > 60
[2017-11-07] MEDS: Metoprolol Succinate 50 mg XL Tab PO SCH (09:49)
[2017-11-07] MEDS ORDERED: Enoxaparin 40 mg Syringe SC SCH (10:00)
[2017-11-07] MEDS ORDERED: Home Med 1 UNIT (Alendronate [Fosamax] 70 MG) PO SCH (10:00)
[2017-11-07 14:14] LABS: CK-MB 0.54 ng/mL (0.0-3.38); TROPONIN I 0.016 ng/mL (0.00-0.120)
--- NOTE | 2017-11-07 15:15 | CP.PCM.HP ---
History of Present Illness - History of Present Illness History of Present Illness: COMPREHENSIVE HISTORY & PHYSICAL EXAM HPI Patient was admitted from the emergency room with a history of unsteady gait and generalized weakness. Patient originally presented to [facility] emergency room complaining of abdominal pain and nauseous and vomiting feeling GI workup was negative and patient had no further pain after the medication. Patient was planned to go home but then patient started complaining of weakness unsteady gait and dizziness. 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 Patient takes meclizine 12.5 twice a day mild to moderate response. Patient also has a history of seizures on Keppra. PAST HIST. PERSONAL HIST: Smoking. N Alcohol. N Allergy N Travel_- . FAMILY HIST : ROS : Constitutional: Negative for weight change, chills, night sweats, fatigue and usage of assist device. Eyes: Negative for redness, swelling, itching, discharge, vision changes, blurry vision, double vision, glaucoma, cataracts, Ears: Negative for hearing loss, ringing, , tinnitus, vertigo Nose: Negative for rhinorrhea, stuffiness, sniffing, itching, postnasal drip, discoloration, nasal congestion and epistaxis. Throat: Negative for throat clearing, sore throat, hoarseness, difficulty swallowing and difficulty speaking. Respiratory: Negative for cough, , sputum production, chest tightness, wheezing, pleuritic chest pain ,daytime somnolence, chronic cough, hemoptysis, snoring at night, Cardiovascular: Negative for chest pain, palpitations, orthopnea, PND, Edema of legs, leg cramps, angina, claudication, , irregular heartbeat, Neurology: Negative for irritability, numbness and tingling, seizures, tremors , migraines, slurred speech, syncope, memory loss, mood changes, recurrent headaches Gastrointestinal: Negative for difficulty swallowing, diarrhea, constipation, black stools, rectal bleeding, nausea, flatulence, reflux, poor appetite, changes in bowel habits, abdominal pain Genitourinary: Negative for frequent urination, hematuria, discharge, incontinence, urinary retention, frequent UTI, Psychiatric: Negative for depression, anxiety/panic, suicidal tendencies, Musculoskeletal: Negative for swollen joints, back pain, , neck pain, morning stiffness of joints, . Skin: Negative for rash, ulcers, itching, dry skin and pigmented lesions. P/E: Constitutional: Appears stated age and in no apparent distress. Head: Normocephalic. Ears: External ear canals patent without inflammation. Tympanic membranes intact with normal light reflex and landmark. Eyes: Pupils are central, bilaterally equal, symmetrical and reacts to light with normal movements and no icterus or pallor. Nose: External nares are patent. Mucosa is pink Mouth-Throat: Good general appearance and condition. No post-pharyngeal/oropharyngeal erythema and tonsillar hypertrophy. Good dental hygiene. Neck-Lymphatic: Neck is supple with normal ROM, no thyromegaly, lymph nodes or masses. JVD is normal with no carotid bruit. Lungs: Clear to percussion and auscultation with bilateral normal air entry. Cardiovascular: S1 and S2 are normal with no murmurs, gallops and rub. GI Exam: No hepatomegaly. Abdomen is soft and non-tender. No Organomegaly , masses or hernias are evident and bowel sounds are normal and active. Neurology: Higher function and all cranial nerves intact, with no gross motor or sensory deficit. Superficial and deep reflexes are normal with downwards planters. No cerebellar deficit with normal gait. Musculoskeletal: No tender spots with normal curvature of the spine with no swelling or restricted ROM of the small and large joints. Extremities: Homans sign absent. Intact pulses with no pitting edema, calf tenderness or skin color changes. Skin: No rash, eruptions or abnormal skin pigmentation LAB/RADIOLOGY: ASSESMENT : Acute on chronic vertigo secondary to cerebellar infarcts and other lacunar infarcts. Hypertension History of seizures PLAN: See the orders. Present on Admission - Present on Admission Any Indicators Present on Admission: No Past Patient History - Infectious Disease Hx of Infectious Diseases: None - Past Medical History & Family History Past Medical History?: Yes - Past Social History Smoking Status: Never Smoked - CARDIAC Hx Hypercholesterolemia: Yes Hx Hypertension: Yes - PULMONARY Hx Respiratory Disorders: No - NEUROLOGICAL Hx Seizures: Yes (2 MONTHS AGO) - HEENT Hx HEENT Problems: No - RENAL Hx Chronic Kidney Disease: No - ENDOCRINE/METABOLIC Hx Hypothyroidism: Yes - HEMATOLOGICAL/ONCOLOGICAL Hx Blood Disorders: No - INTEGUMENTARY Hx Dermatological Problems: No - MUSCULOSKELETAL/RHEUMATOLOGICAL Hx Osteoporosis: Yes - GASTROINTESTINAL Other/Comment: LUQ ABDOMINAL PAIN; , dizziness - GENITOURINARY/GYNECOLOGICAL Hx Genitourinary Disorders: No - PSYCHIATRIC Hx Anxiety: Yes Hx Substance Use: No - SURGICAL HISTORY Hx Surgeries: Yes Hx Musculoskeletal Surgery: Yes (2 BACK SURGERIES 30 YRS. AGO) - ANESTHESIA Hx Anesthesia: Yes Hx Anesthesia Reactions: No Hx Malignant Hyperthermia: No Meds Home Medications: Home Medication List Medication Instructions Recorded Confirmed Type Ondansetron ODT [Zofran ODT] 4 mg PO Q6H PRN #6 odt 11/06/17 Rx Allergies/Adverse Reactions: Allergies Allergy/AdvReac Type Severity Reaction Status Date / Time Sulfa (Sulfonamide AdvReac Intermediate NAUSEA Verified 11/06/17 16:12 Antibiotics) Results - Vital Signs Recent Vital Signs: Last Vital Signs Temp 98.1 F 11/07/17 08:05 Pulse 61 11/07/17 08:05 Resp 20 11/07/17 08:05 BP 171/79 H 11/07/17 08:05 Pulse Ox 98 11/07/17 12:08 - Labs Result Diagrams: 11/07/17 05:22 11/07/17 05:22 Labs: Laboratory Results - last 24 hr 11/06/17 11/06/17 11/06/17 17:04 17:04 18:16 WBC 5.3 RBC 3.95 Hgb 11.9 Hct 34.9 MCV 88.4 D MCH 30.2 MCHC 34.2 RDW 13.6 Plt Count 222 MPV 6.6 L Neut % (Auto) 87.7 H Lymph % (Auto) 8.7 L [place] % (Auto) 3.2 Eos % (Auto) 0.0 Baso % (Auto) 0.4 Neut # (Auto) 4.7 Lymph # (Auto) 0.5 L [place] # (Auto) 0.2 Eos # (Auto) 0.0 Baso # (Auto) 0.0 Neutrophils % (Manual) 88 H Band Neutrophils % 1 Lymphocytes % (Manual) 7 L Monocytes % (Manual) 4 Platelet Estimate Normal Microcytosis (manual) Slight Ovalocytes Slight Sodium 132 Potassium 4.4 Chloride 92 L Carbon Dioxide 27 Anion Gap 18 BUN 10 Creatinine 0.7 Est GFR ( Amer) > 60 Est GFR (Non-Af Amer) > 60 Random Glucose 157 H Calcium 9.6 Total Bilirubin 0.7 AST 38 H D ALT 19 Alkaline Phosphatase 76 Total Creatine Kinase CK-MB (Mass) Troponin I < 0.0120 NT-Pro-B Natriuret Pep 665 Total Protein 8.4 H Albumin 4.8 Globulin 3.6 Albumin/Globulin Ratio 1.3 Urine Color Yellow Urine Clarity Hazy Urine pH 8.0 Ur Specific [place] 1.009 Urine Protein Negative Urine Glucose (UA) Normal Urine Ketones Trace Urine Blood Negative Urine Nitrate Negative Urine Bilirubin Negative Urine Urobilinogen Normal Ur Leukocyte Esterase 3+ H Urine WBC (Auto) 19 H Urine RBC (Auto) 8 H Ur Squamous Epith Cells 1 Amorphous Sediment Few H Urine Bacteria Rare 11/06/17 11/07/17 11/07/17 19:37 05:22 05:22 WBC 4.5 L RBC 3.95 Hgb 12.0 Hct 34.9 MCV 88.4 MCH 30.3 MCHC 34.3 RDW 13.9 Plt Count 206 MPV 6.6 L Neut % (Auto) 70.5 Lymph % (Auto) 15.9 L [place] % (Auto) 12.8 H Eos % (Auto) 0.4 Baso % (Auto) 0.4 Neut # (Auto) 3.2 Lymph # (Auto) 0.7 L [place] # (Auto) 0.6 Eos # (Auto) 0.0 Baso # (Auto) 0.0 Neutrophils % (Manual) Band Neutrophils % Lymphocytes % (Manual) Monocytes % (Manual) Platelet Estimate Microcytosis (manual) Ovalocytes Sodium 136 Potassium 4.1 Chloride 96 L Carbon Dioxide 27 Anion Gap 17 BUN 11 Creatinine 0.9 Est GFR ( Amer) > 60 Est GFR (Non-Af Amer) > 60 Random Glucose 93 Calcium 9.3 Total Bilirubin 0.5 AST 32 ALT 15 Alkaline Phosphatase 67 Total Creatine Kinase 54 50 CK-MB (Mass) 0.30 0.62 Troponin I < 0.0120 0.0270 NT-Pro-B Natriuret Pep Total Protein 7.3 Albumin 4.1 Globulin 3.2 Albumin/Globulin Ratio 1.3 Urine Color Urine Clarity Urine pH Ur Specific [place] Urine Protein Urine Glucose (UA) Urine Ketones Urine Blood Urine Nitrate Urine Bilirubin Urine Urobilinogen Ur Leukocyte Esterase Urine WBC (Auto) Urine RBC (Auto) Ur Squamous Epith Cells Amorphous Sediment Urine Bacteria 11/07/17 13:18 WBC RBC Hgb Hct MCV MCH MCHC RDW Plt Count MPV Neut % (Auto) Lymph % (Auto) [place] % (Auto) Eos % (Auto) Baso % (Auto) Neut # (Auto) Lymph # (Auto) [place] # (Auto) Eos # (Auto) Baso # (Auto) Neutrophils % (Manual) Band Neutrophils % Lymphocytes % (Manual) Monocytes % (Manual) Platelet Estimate Microcytosis (manual) Ovalocytes Sodium Potassium Chloride Carbon Dioxide Anion Gap BUN Creatinine Est GFR ( Amer) Est GFR (Non-Af Amer) Random Glucose Calcium Total Bilirubin AST ALT Alkaline Phosphatase Total Creatine Kinase 48 CK-MB (Mass) 0.54 Troponin I 0.0160 NT-Pro-B Natriuret Pep Total Protein Albumin Globulin Albumin/Globulin Ratio Urine Color Urine Clarity Urine pH Ur Specific [place] Urine Protein Urine Glucose (UA) Urine Ketones Urine Blood Urine Nitrate Urine Bilirubin Urine Urobilinogen Ur Leukocyte Esterase Urine WBC (Auto) Urine RBC (Auto) Ur Squamous Epith Cells Amorphous Sediment Urine Bacteria
[2017-11-07] MEDS: Dextrose 5%/0.45% NS 1,000 ML IV SCH (21:44)
[2017-11-08] MEDS: Dextrose 5%/0.45% NS 1,000 ML IV SCH ×2 (07:31→17:30)
[2017-11-08] MEDS: Metoprolol Succinate 50 mg XL Tab PO SCH ×2 (08:01→10:00)
[2017-11-08] MEDS ORDERED: Pneumococcal 23-Valent Vaccine IM ONE (10:00)
--- NOTE | 2017-11-08 15:21 | CP.PCM.PN ---
Subjective - Date & Time of Evaluation Date of Evaluation: 11/08/17 Time of Evaluation: 15:20 - Subjective Subjective: pATIENT HAS PERIODS OF CONFUSION. sYSTOLIC BLOOD PRESSURE IS ELEVATED MEDICATION ADJUSTED. oCCASIONAL EPIGASTRIC PAIN. pATIENT ON iv FLUIDS PATIENT IS A VERY POOR INTAKE OF LIQUIDS AND SOLIDS. Objective - Vital Signs/Intake and Output Vital Signs (last 24 hours): Temp Pulse Resp BP Pulse Ox 98.1 F 76 20 192/93 H 98 11/08/17 07:30 11/08/17 13:21 11/08/17 07:30 11/08/17 13:21 11/07/17 23:48 Intake and Output: 11/08/17 11/08/17 11:59 23:59 Intake Total 920 Balance 920 - Medications Medications: Current Medications Alprazolam (Xanax) 0.25 mg PO DAILY PRN PRN Reason: Anxiety Stop: 11/13/17 19:34 Calcium Carbonate (Oscal) 500 mg PO DAILY [facility] Last Admin: 11/08/17 11:02 Dose: 500 mg Clopidogrel Bisulfate (Plavix) 75 mg PO DAILY [facility] Last Admin: 11/08/17 11:29 Dose: 75 mg Dicyclomine HCl (Bentyl) 10 mg PO Q8 PRN PRN Reason: abdominal pain Last Admin: 11/07/17 09:44 Dose: 10 mg Docusate Sodium (Colace) 100 mg PO TID [facility] Last Admin: 11/08/17 13:55 Dose: 100 mg Famotidine (Pepcid) 20 mg PO BID [facility] Last Admin: 11/08/17 11:01 Dose: 20 mg Heparin Sodium (Porcine) (Heparin) 5,000 units SC Q12H [facility] Last Admin: 11/08/17 11:01 Dose: 5,000 units Dextrose/Sodium Chloride (Dextrose 5%/0.45% Ns 1000 Ml) 1,000 mls @ 100 mls/hr IV .Q10H [facility] Last Admin: 11/08/17 07:31 Dose: 100 mls/hr Lamotrigine (Lamictal) 200 mg PO BID [facility] Last Admin: 11/08/17 11:30 Dose: 200 mg Lisinopril (Zestril) 20 mg PO DAILY [facility] Last Admin: 11/08/17 13:55 Dose: 20 mg Losartan Potassium (Cozaar) 50 mg PO HS [facility] Last Admin: 11/07/17 21:43 Dose: 50 mg Meclizine HCl (Antivert) 12.5 mg PO Q8 PRN PRN Reason: Dizziness Metoprolol Succinate (Toprol Xl) 50 mg PO DAILY [facility] Last Admin: 11/08/17 08:01 Dose: 50 mg Rosuvastatin Calcium (Crestor) 20 mg PO [facility] Last Admin: 11/07/17 21:43 Dose: 20 mg Sucralfate (Carafate Tab) 1 gm PO TID [facility] Last Admin: 11/08/17 13:55 Dose: 1 gm - Labs Labs: 11/07/17 05:22 11/07/17 05:22
[2017-11-09] MEDS: Dextrose 5%/0.45% NS 1,000 ML IV SCH (03:32)
--- NOTE | 2017-11-09 10:24 | CP.PCM.PN ---
Subjective - Date & Time of Evaluation Date of Evaluation: 11/09/17 Time of Evaluation: 10:22 - Subjective Subjective: CHIEF COMPLAINTS TODAY : YESTERDAY PATIENT HAD CHANGE OF MENTAL STATUS WITH CONFUSION REQUIRING 2 MG OF aTIVAN im PATIENT PULLED OUT iv. ROS. HEENT : N. Resp : No cough, wheezing ,pleuritic CP ,or hemoptysis Cardio : No anginal CP, PND, orthopnea, palpitation GI : No GI bleeding . SOUNDING DEVICE OPERATOR : No headache, vertigo, focal deficit. Musculoskel : No joint swelling , Derm : No rash Psych : Normal affect Ext : No swelling ,calf pain PE. Pt. is alert awake in no distress. V.S As noted in the chart Head ,ear nose,throat and eyes : Normal. Neck : Supple with normal carotids. Lungs: Clear air entry. Heart : S1 & S2 normal with S4. No murmur. Abd : Soft tender with no distension Neuro : Moves all ext. with no localized deficit. Ext : No edema with intact pulses.Non tender calves Derm : No rashes or decubitus ulcer. LABS/RADIOLOGY: ASSESSMENT/PLAN : Will discuss with short-term rehab. Objective - Vital Signs/Intake and Output Vital Signs (last 24 hours): Temp Pulse Resp BP Pulse Ox 97.4 F L 68 20 146/76 95 11/09/17 09:53 11/09/17 09:53 11/09/17 09:53 11/09/17 09:53 11/09/17 09:53 Intake and Output: 11/08/17 11/09/17 23:59 11:59 Intake Total 1000 120 Balance 1000 120 - Medications Medications: Current Medications Alprazolam (Xanax) 0.25 mg PO DAILY PRN PRN Reason: Anxiety Stop: 11/13/17 19:34 Last Admin: 11/08/17 17:10 Dose: 0.25 mg Calcium Carbonate (Oscal) 500 mg PO DAILY [facility] Last Admin: 11/08/17 11:02 Dose: 500 mg Clopidogrel Bisulfate (Plavix) 75 mg PO DAILY [facility] Last Admin: 11/08/17 11:29 Dose: 75 mg Dicyclomine HCl (Bentyl) 10 mg PO Q8 PRN PRN Reason: abdominal pain Last Admin: 11/07/17 09:44 Dose: 10 mg Docusate Sodium (Colace) 100 mg PO TID [facility] Last Admin: 11/08/17 17:10 Dose: 100 mg Famotidine (Pepcid) 20 mg PO BID [facility] Last Admin: 11/08/17 17:10 Dose: 20 mg Heparin Sodium (Porcine) (Heparin) 5,000 units SC Q12H [facility] Last Admin: 11/08/17 21:22 Dose: 5,000 units Dextrose/Sodium Chloride (Dextrose 5%/0.45% Ns 1000 Ml) 1,000 mls @ 100 mls/hr IV .Q10H [facility] Last Admin: 11/09/17 03:32 Dose: Not Given Lamotrigine (Lamictal) 200 mg PO BID [facility] Last Admin: 11/08/17 21:22 Dose: 200 mg Lisinopril (Zestril) 20 mg PO DAILY [facility] Last Admin: 11/08/17 13:55 Dose: 20 mg Lorazepam (Ativan) 2 mg IM ONCE PRN PRN Reason: Agitation Last Admin: 11/08/17 21:19 Dose: 2 mg Losartan Potassium (Cozaar) 50 mg PO HS [facility] Last Admin: 11/08/17 21:20 Dose: 50 mg Meclizine HCl (Antivert) 12.5 mg PO Q8 PRN PRN Reason: Dizziness Metoprolol Succinate (Toprol Xl) 50 mg PO DAILY [facility] Last Admin: 11/08/17 10:00 Dose: Not Given Rosuvastatin Calcium (Crestor) 20 mg PO HS [facility] Last Admin: 11/08/17 21:22 Dose: 20 mg Sucralfate (Carafate Tab) 1 gm PO TID [facility] Last Admin: 11/08/17 17:10 Dose: 1 gm - Labs Labs: 11/07/17 05:22 11/07/17 05:22
[2017-11-09] MEDS: Metoprolol Succinate 50 mg XL Tab PO SCH (10:56)
[2017-11-09 16:18] VITALS: O2SAT 98
--- NOTE | 2017-11-09 16:45 | CARD ---
APPROVED REPORT EKG Measurement Heart [id number] DC [id number] <Conclusion> Sinus bradycardia Otherwise normal ECG
[2017-11-10] MEDS: Metoprolol Succinate 50 mg XL Tab PO SCH (10:08)
[2017-11-10] MEDS ORDERED: Bisacodyl 5mg EC Tab PO ONE ×2 (13:53→16:27)
--- NOTE | 2017-11-10 14:20 | CP.PCM.DIS ---
Provider - Provider Date of Admission: 11/07/17 17:34 Attending physician: Star Olivier MD Time Spent in preparation of Discharge (in minutes): 35 Hospital Course - Lab Results Lab Results: Most Recent Lab Values WBC 4.5 K/uL (4.8-10.8) L 11/07/17 05:22 RBC 3.95 Mil/uL (3.80-5.20) 11/07/17 05:22 Hgb 12.0 g/dL (11.0-16.0) 11/07/17 05:22 Hct 34.9 % (34.0-47.0) 11/07/17 05:22 MCV 88.4 fL (81.0-99.0) 11/07/17 05:22 MCH 30.3 pg (27.0-31.0) 11/07/17 05:22 MCHC 34.3 g/dL (33.0-37.0) 11/07/17 05:22 RDW 13.9 % (11.5-14.5) 11/07/17 05:22 Plt Count 206 K/uL (130-400) 11/07/17 05:22 MPV 6.6 fL (7.2-11.7) L 11/07/17 05:22 Neut % (Auto) 70.5 % (50.0-75.0) 11/07/17 05:22 Lymph % (Auto) 15.9 % (20.0-40.0) L 11/07/17 05:22 [place] % (Auto) 12.8 % (0.0-10.0) H 11/07/17 05:22 Eos % (Auto) 0.4 % (0.0-4.0) 11/07/17 05:22 Baso % (Auto) 0.4 % (0.0-2.0) 11/07/17 05:22 Neut # (Auto) 3.2 K/uL (1.8-7.0) 11/07/17 05:22 Lymph # (Auto) 0.7 K/uL (1.0-4.3) L 11/07/17 05:22 [place] # (Auto) 0.6 K/uL (0.0-0.8) 11/07/17 05:22 Eos # (Auto) 0.0 K/uL (0.0-0.7) 11/07/17 05:22 Baso # (Auto) 0.0 K/uL (0.0-0.2) 11/07/17 05:22 Neutrophils % (Manual) 88 % (50-75) H 11/06/17 17:04 Band Neutrophils % 1 % (0-2) 11/06/17 17:04 Lymphocytes % (Manual) 7 % (20-40) L 11/06/17 17:04 Monocytes % (Manual) 4 % (0-10) 11/06/17 17:04 Platelet Estimate Normal (NORMAL) 11/06/17 17:04 Microcytosis (manual) Slight 11/06/17 17:04 Ovalocytes Slight 11/06/17 17:04 Sodium 136 mmol/L (132-148) 11/07/17 05:22 Potassium 4.1 mmol/L (3.6-5.2) 11/07/17 05:22 Chloride 96 mmol/L (98-107) L 11/07/17 05:22 Carbon Dioxide 27 mmol/L (22-30) 11/07/17 05:22 Anion Gap 17 (10-20) 11/07/17 05:22 BUN 11 mg/dL (7-17) 11/07/17 05:22 Creatinine 0.9 mg/dL (0.7-1.2) 11/07/17 05:22 Est GFR ( Amer) > 60 11/07/17 05:22 Est GFR (Non-Af Amer) > 60 11/07/17 05:22 Random Glucose 93 mg/dL (65-105) 11/07/17 05:22 Calcium 9.3 mg/dl (8.6-10.4) 11/07/17 05:22 Total Bilirubin 0.5 mg/dL (0.2-1.3) 11/07/17 05:22 AST 32 U/L (14-36) 11/07/17 05:22 ALT 15 U/L (9-52) 11/07/17 05:22 Alkaline Phosphatase 67 U/L (38-126) 11/07/17 05:22 Total Creatine Kinase 48 U/L (30-135) 11/07/17 13:18 CK-MB (Mass) 0.54 ng/mL (0.0-3.38) 11/07/17 13:18 Troponin I 0.0160 ng/mL (0.00-0.120) 11/07/17 13:18 NT-Pro-B Natriuret Pep 665 pg/mL (0-900) 11/06/17 17:04 Total Protein 7.3 g/dL (6.3-8.3) 11/07/17 05:22 Albumin 4.1 g/dL (3.5-5.0) 11/07/17 05:22 Globulin 3.2 gm/dL (2.2-3.9) 11/07/17 05:22 Albumin/Globulin Ratio 1.3 (1.0-2.1) 11/07/17 05:22 Urine Color Yellow (YELLOW) 11/06/17 18:16 Urine Clarity Hazy (Clear) 11/06/17 18:16 Urine pH 8.0 (5.0-8.0) 11/06/17 18:16 Ur Specific [place] 1.009 (1.003-1.030) 11/06/17 18:16 Urine Protein Negative mg/dL (NEGATIVE) 11/06/17 18:16 Urine Glucose (UA) Normal mg/dL (Normal) 11/06/17 18:16 Urine Ketones Trace mg/dL (NEGATIVE) 11/06/17 18:16 Urine Blood Negative (NEGATIVE) 11/06/17 18:16 Urine Nitrate Negative (NEGATIVE) 11/06/17 18:16 Urine Bilirubin Negative (NEGATIVE) 11/06/17 18:16 Urine Urobilinogen Normal mg/dL (0.2-1.0) 11/06/17 18:16 Ur Leukocyte Esterase 3+ Jonathan/uL (Negative) H 11/06/17 18:16 Urine WBC (Auto) 19 /hpf (0-5) H 11/06/17 18:16 Urine RBC (Auto) 8 /hpf (0-3) H 11/06/17 18:16 Ur Squamous Epith Cells 1 /hpf (0-5) 11/06/17 18:16 Amorphous Sediment Few /ul (<OCC) H 18 18:16 Urine Bacteria Rare (<OCC) 11/06/17 18:16 - Hospital Course Hospital Course: Patient was admitted from the emergency room with a history of unsteady gait and generalized weakness. Patient originally presented to emergency room complaining of abdominal pain and nauseous and vomiting feeling GI workup was negative and patient had no further pain after the medication. Patient was planned to go home but then patient started complaining of weakness unsteady gait and dizziness. 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 Patient takes meclizine 12.5 twice a day mild to moderate response. Patient also has a history of seizures on Keppra. patient was admitted on the floor. Routine blood work shows normal. Patient had occasional abdominal pain secondary to constipation. Patient had periods of confusion and disorientation which has happened in the past admissions. Urine showed leukocyte urine culture was not obtained as patient was not cooperating. Patient was put on by mouth Cipro empirically and later transferred to rehab where further treatment will be given. Discharge Plan - Discharge Medications Prescriptions: Ondansetron ODT [Zofran ODT] 4 mg PO Q6H PRN #6 odt PRN Reason: Nausea/Vomiting - Follow Up Plan Condition: GOOD Disposition: HOME/ ROUTINE Instructions: Constipation, Adult (DC), Nausea and Vomiting, Adult (DC) Additional Instructions: Constipation: Fleets Enema now Repeat until satisfying bowel movement. Vomiting: Zofran 4mg ODT one tab every 6 hours as needed for nausea Referrals: Trae Li MD [Medical Doctor] -
[2017-11-10 16:09] VITALS: BP 170/73; PULSE 65; RESP 20; TEMP 98.1
[2017-11-10] MEDS ORDERED: Pneumococcal 23-Valent Vaccine IM ONE (17:45)
--- NOTE | 2017-11-10 17:57 | CP.PCM.PN ---
Subjective - Date & Time of Evaluation Date of Evaluation: 11/10/17 Time of Evaluation: 17:57 - Subjective Subjective: Awake, confused, no acute distress. Objective - Vital Signs/Intake and Output Vital Signs (last 24 hours): Temp Pulse Resp BP Pulse Ox 98.1 F 65 20 170/73 H 98 11/10/17 16:00 11/10/17 16:00 11/10/17 16:00 11/10/17 16:00 11/10/17 16:00 Intake and Output: 11/10/17 11/10/17 06:59 18:59 Intake Total 510 50 Balance 510 50 - Medications Medications: Current Medications Acetaminophen (Tylenol 325mg Tab) 650 mg PO Q6 PRN PRN Reason: Pain, moderate (4-7) Last Admin: 11/10/17 11:34 Dose: 650 mg Alprazolam (Xanax) 0.25 mg PO DAILY PRN PRN Reason: Anxiety Stop: 11/13/17 19:34 Last Admin: 11/10/17 17:23 Dose: 0.25 mg Calcium Carbonate (Oscal) 500 mg PO DAILY [facility] Last Admin: 11/10/17 10:10 Dose: 500 mg Clopidogrel Bisulfate (Plavix) 75 mg PO DAILY [facility] Last Admin: 11/10/17 10:08 Dose: 75 mg Dicyclomine HCl (Bentyl) 10 mg PO Q8 PRN PRN Reason: abdominal pain Last Admin: 11/10/17 10:11 Dose: 10 mg Docusate Sodium (Colace) 100 mg PO TID [facility] Last Admin: 11/10/17 17:25 Dose: 100 mg Famotidine (Pepcid) 20 mg PO BID [facility] Last Admin: 11/10/17 17:25 Dose: 20 mg Heparin Sodium (Porcine) (Heparin) 5,000 units SC Q12H [facility] Last Admin: 11/10/17 10:08 Dose: 5,000 units Lamotrigine (Lamictal) 200 mg PO BID [facility] Last Admin: 11/10/17 17:27 Dose: 200 mg Lisinopril (Zestril) 20 mg PO DAILY [facility] Last Admin: 11/10/17 10:08 Dose: 20 mg Lorazepam (Ativan) 2 mg IM ONCE PRN PRN Reason: Agitation Last Admin: 11/08/17 21:19 Dose: 2 mg Losartan Potassium (Cozaar) 50 mg PO HS [facility] Last Admin: 11/09/17 21:28 Dose: 50 mg Magnesium Hydroxide (Milk Of Magnesia) 30 ml PO [facility] Meclizine HCl (Antivert) 12.5 mg PO Q8 PRN PRN Reason: Dizziness Metoprolol Succinate (Toprol Xl) 50 mg PO DAILY [facility] Last Admin: 11/10/17 10:08 Dose: 50 mg Rosuvastatin Calcium (Crestor) 20 mg PO [facility] Last Admin: 11/09/17 21:25 Dose: 20 mg Sucralfate (Carafate Tab) 1 gm PO TID [facility] Last Admin: 11/10/17 17:24 Dose: 1 gm - Labs Labs: 11/07/17 05:22 11/07/17 05:22 Assessment and Plan - Assessment and Plan (Free Text) Assessment: Patient is seen and examined. Resident confused and unco-operative. No sob or chst pains noted. Has constipation and poor appetite. Urine positive for leukocytes, unable to get the culture done. Started on cipro pox7 days. Started on laxatives. Discussed with DR Olivier, will discharge to [facility] in am. Encouraged small frequent feedings.
[2017-11-10] MEDS ORDERED: Magnesium Hydroxide Susp 30 ml UD PO SCH (22:00)
[2017-11-13] MEDS ORDERED: Home Med 1 UNIT (Alendronate [Fosamax] 70 MG) PO SCH (10:00)
== END 2017-11-10 18:23 | DRG 149 ==
LOC: C.ER 15:56 → C.9E 19:04 → C.3T 22:22 → OBSVTOIN 11-07 17:34 → C.3T 11-08 15:07
PROVIDERS: ADMIT Internal Medicine Cardiovascular Disease; ATTEND Internal Medicine Cardiovascular Disease
DX: R42 Dizziness and giddiness (principal); R56.9 Unspecified convulsions; K59.00 Constipation, unspecified; E03.9 Hypothyroidism, unspecified; E78.00 Pure hypercholesterolemia, unspecified; I10 Essential (primary) hypertension; M81.0 Age-related osteoporosis without current pathological fracture; R26.81 Unsteadiness on feet; R53.1 Weakness; D72.829 Elevated white blood cell count, unspecified; Z86.73 Personal history of transient ischemic attack (TIA), and cerebral infarction without residual deficits

== ENCOUNTER 2018-08-22 19:09 | Inpatient (IN) | payer MEDICARE ==
[2018-08-22 19:09] VITALS: BMI 17.6
[2018-08-22 19:38] LABS: BASO # 0.1 K/uL (0.0-0.2); BASO % 1.3 % (0.0-2.0); EOS % 0.1 % (0.0-4.0); HEMOGLOBIN 12.2 g/dL (11.0-16.0); LYMPH # 0.7 K/uL (1.0-4.3); LYMPH % 12.6 % (20.0-40.0); MEAN CELL VOLUME 93.8 fL (81.0-99.0); MEAN CORPUSCULAR HEMOGLOBIN 31.3 pg (27.0-31.0); MEAN CORPUSCULAR HGB CONC 33.4 g/dL (33.0-37.0); MEAN PLATELET VOLUME 6.4 fL (7.2-11.7); MONO # 0.3 K/uL (0.0-0.8); MONO % 4.7 % (0.0-10.0); NEUT # 4.7 K/uL (1.8-7.0); NEUT % 81.3 % (50.0-75.0); RBC 3.88 Mil/uL (3.80-5.20); RED CELL DISTRIBUTION WIDTH 13.6 % (11.5-14.5); WHITE BLOOD COUNT 5.8 K/uL (4.8-10.8)
[2018-08-22 19:45] LABS: INR 1.1; PROTHROMBIN TIME 11.6 SECONDS (9.7-12.2)
[2018-08-22 19:51] LABS: ALB/GLOB RATIO 1.5 (1.0-2.1); ALBUMIN 4.6 g/dL (3.5-5.0); ALT/SGPT 12 U/L (9-52); AST/SGOT 29 U/L (14-36); BLOOD UREA NITROGEN 10 mg/dL (7-17); CALCIUM 9.9 mg/dl (8.6-10.4); GFR NON-AFRICAN AMERICAN > 60
[2018-08-22 20:02] LABS: B-TYPE NATRIURETIC PEPTIDE 377 pg/mL (0-900)
[2018-08-22] MEDS ORDERED: Sodium Chloride 0.9% 500 ML IV ONE ×2 (20:22→21:35)
[2018-08-22] MEDS ORDERED: Sodium Chloride 0.9% 1,000 ML ONE (20:26)
--- NOTE | 2018-08-22 20:37 | C.PDOC ---
History Of Present Illness 82 year old female presents to the ED c/o sudden onset anxiety, dizziness and weakness while she was watching TV at home. Patient reports her symptoms are associated with nausea and vomit. Patient with PMHx of panic attacks and anxie ty. Patient denies fever, chills, headache, visual changes, SOB, CP, palpitations, rash, numbness. Time Seen by Provider: 08/22/18 19:12 Chief Complaint (Nursing): Dizziness/Lightheaded History Per: Patient History/Exam Limitations: no limitations Onset/Duration Of Symptoms: Sudden Onset Current Symptoms Are (Timing): Still Present Activity At Onset Of Symptoms: Sitting Associated Symptoms Preceding Syncopal Episode: No Predromal Symptoms (Sudden Onset) Seizure Or Post-ictal Symptoms: None Fall Associated With With Symptoms: No Severity: None Recent travel outside of the [place]: No Additional History Per: Patient Past Medical History Reviewed: Historical Data, Nursing Documentation, Vital Signs Vital Signs: Last Vital Signs Temp 95.9 F L 08/22/18 19:23 Pulse 56 L 08/22/18 19:11 Resp 16 08/22/18 19:11 BP 174/74 H 08/22/18 19:11 Pulse Ox 97 08/22/18 19:11 - Medical History PMH: Anxiety, Arthritis (knee, back), HTN, Hypercholesterolemia, Hypothyroidism, Osteoporosis, Seizures (2 MONTHS AGO) Denies: Chronic Kidney Disease Surgical History: Back Surgery, Endoscopy - [facility] Procedures COLONOSCOPY (07/25/14) ESOPHAGOGASTRODUODENOSCOPY [EGD] W/CLOSED BIOPSY (07/25/14) Family History: States: Unknown Family Hx - Social History Hx Tobacco Use: No Hx Alcohol Use: No Hx Substance Use: No - Immunization History Hx Tetanus Toxoid Vaccination: No Hx Influenza Vaccination: Yes Hx Pneumococcal Vaccination: No Review Of Systems Constitutional: Negative for: Fever, Chills Eyes: Negative for: Vision Change Cardiovascular: Negative for: Chest Pain, Palpitations Respiratory: Negative for: Shortness of Breath Gastrointestinal: Negative for: Nausea, Vomiting, Abdominal Pain Neurological: Positive for: Weakness, Dizziness. Negative for: Numbness, Headache Psych: Positive for: Anxiety Physical Exam - Physical Exam Appears: Non-toxic, No Acute Distress, Other (elderly white female ) Skin: Normal Color, Warm, Dry Head: Atraumatic, Normacephalic Eye(s): bilateral: Normal Inspection, PERRL, EOMI Oral Mucosa: Moist Neck: Normal ROM, Supple Chest: Symmetrical Cardiovascular: Rhythm Regular Respiratory: Normal Breath Sounds, No Rales, No Rhonchi, No Wheezing Gastrointestinal/Abdominal: Soft, No Tenderness, No Guarding, No Rebound Extremity: Normal ROM, No Tenderness, No Swelling Neurological/Psych: Oriented x3, Normal Speech, Normal Cognition, Other (anxious) Gait: Steady ED Course And Treatment - Laboratory Results Result Diagrams: 08/22/18 19:35 08/22/18 19:35 Lab Results: PT 11.6 SECONDS (9.7-12.2) 08/22/18 19:35 INR 1.1 08/22/18 19:35 APTT 28 SECONDS (21-34) 08/22/18 19:35 Troponin I < 0.0120 ng/mL (0.00-0.120) 08/22/18 19:35 NT-Pro-B Natriuret Pep 377 pg/mL (0-900) 08/22/18 19:35 Total Bilirubin 0.4 mg/dL (0.2-1.3) 08/22/18 19:35 AST 29 U/L (14-36) 08/22/18 19:35 ALT 12 U/L (9-52) 08/22/18 19:35 Alkaline Phosphatase 81 U/L (38-126) 08/22/18 19:35 Total Protein 7.7 g/dL (6.3-8.3) 08/22/18 19:35 Albumin 4.6 g/dL (3.5-5.0) 08/22/18 19:35 Globulin 3.1 gm/dL (2.2-3.9) 08/22/18 19:35 Albumin/Globulin Ratio 1.5 (1.0-2.1) 08/22/18 19:35 Lab Interpretation: Normal (ua/trop neg. flu neg.) ECG: Interpreted By Ms ECG Rhythm: Sinus Rhythm ECG Interpretation: Normal Rate From EC O2 Sat by Pulse Oximetry: 97 (On RA) Pulse Ox Interpretation: Normal - Radiology CXR: Interpreted by Ms CXR Interpretation: Yes: No Acute Disease Reevaluation Time: 22:15 Reassessment Condition: Improved - Physician Consult Information Outcome Of Conversation: 2039: d/w Dr. Charles Gracia- covers pts for Dr. Julianna Li, ok to Tele Obs. Medical Decision Making Medical Decision Making: Plan: * EKG * CXR * Labs * Pepcid 20 mg IVP * IV fluids * Xanax 0.25 mg PO * Zofran 4 mg IVP * UA * Influenza A B consider viral syndrome vs symptomatic bradycardia NOT junctional rhythm Disposition Doctor Will See Patient In The: Hospital Counseled Patient/Family Regarding: Studies Performed, Diagnosis - Disposition Disposition: HOSPITALIZED Disposition Time: 22:16 Condition: GOOD - Clinical Impression Clinical Impression: Weakness - Scribe Statement The provider has reviewed the documentation as recorded by the Scribe Missael Cano All medical record entries made by the Scribe were at my direction and personally dictated by me. I have reviewed the chart and agree that the record accurately reflects my personal performance of the history, physical exam, medi janae decision making, and the department course for this patient. I have also personally directed, reviewed, and agree with the discharge instructions and disposition.
[2018-08-22 21:30] LABS: SQUAMOUS EPITHIAL < 1 /hpf (0-5); URINE BILIRUBIN NEGATIVE (NEGATIVE); URINE BLOOD NEGATIVE (NEGATIVE); URINE CLARITY Clear (Clear); URINE COLOR Yellow (YELLOW); URINE GLUCOSE (UA) NORMAL (Normal); URINE LEUKOCYTE ESTERASE TRACE Leu/uL (Negative); URINE PROTEIN NEGATIVE (NEGATIVE); URINE UROBILINOGEN NORMAL mg/dL (0.2-1.0)
--- NOTE | 2018-08-23 09:10 | RAD ---
Date of service: 08/22/2018 HISTORY: Shortness of breath COMPARISON: 08/09/2017 TECHNIQUE: 1 view obtained. FINDINGS: LUNGS: Biapical pleural thickening. Hyperinflation suggestive for COPD and or emphysematous changes. Mild atelectasis at the right lung base. PLEURA: No significant pleural effusion identified, no pneumothorax apparent. CARDIOVASCULAR: Aortic atherosclerotic calcification present. Normal cardiac size. No pulmonary vascular congestion. OSSEOUS STRUCTURES: Degenerative changes. VISUALIZED UPPER ABDOMEN: Normal. OTHER FINDINGS: None. IMPRESSION: No active disease.
[2018-08-23] MEDS: Enoxaparin 40 mg Syringe SC SCH (09:39)
[2018-08-23 12:34] LABS: CK-MB 0.53 ng/mL (0.0-3.38)
--- NOTE | 2018-08-23 20:20 | CP.PCM.HP ---
Present on Admission - Present on Admission Any Indicators Present on Admission: No Past Patient History - Infectious Disease Hx of Infectious Diseases: None - Past Medical History & Family History Past Medical History?: Yes - Past Social History Smoking Status: Never Smoked - CARDIAC Hx Hypercholesterolemia: Yes Hx Hypertension: Yes - PULMONARY Hx Respiratory Disorders: No - NEUROLOGICAL Hx Seizures: Yes (2 MONTHS AGO) - HEENT Hx HEENT Problems: No - RENAL Hx Chronic Kidney Disease: No - ENDOCRINE/METABOLIC Hx Hypothyroidism: Yes - HEMATOLOGICAL/ONCOLOGICAL Hx Blood Disorders: No - INTEGUMENTARY Hx Dermatological Problems: No - MUSCULOSKELETAL/RHEUMATOLOGICAL Hx Arthritis: Yes (knee, back) Hx Osteoporosis: Yes - GASTROINTESTINAL Other/Comment: LUQ ABDOMINAL PAIN; , dizziness - GENITOURINARY/GYNECOLOGICAL Hx Genitourinary Disorders: No - PSYCHIATRIC Hx Anxiety: Yes Hx Substance Use: No - SURGICAL HISTORY Hx Surgeries: Yes Hx Musculoskeletal Surgery: Yes (2 BACK SURGERIES 30 YRS. AGO) - ANESTHESIA Hx Anesthesia: Yes Hx Anesthesia Reactions: No Hx Malignant Hyperthermia: No Meds Allergies/Adverse Reactions: Allergies Allergy/AdvReac Type Severity Reaction Status Date / Time Sulfa (Sulfonamide AdvReac Intermediate NAUSEA Verified 08/22/18 19:15 Antibiotics) Results - Vital Signs Recent Vital Signs: Last Vital Signs Temp 97.4 F L 08/23/18 16:00 Pulse 82 08/23/18 16:00 Resp 20 08/23/18 16:00 BP 112/71 08/23/18 16:00 Pulse Ox 99 08/23/18 16:00 - Labs Result Diagrams: 08/22/18 19:35 08/22/18 19:35 Labs: Laboratory Results - last 24 hr 08/22/18 08/23/18 08/23/18 21:21 06:22 11:37 Total Creatine Kinase 47 46 CK-MB (Mass) 0.50 0.53 Troponin I < 0.0120 < 0.0120 Urine Color Yellow Urine Clarity Clear Urine pH 7.0 Ur Specific [place] 1.009 Urine Protein Negative Urine Glucose (UA) Normal Urine Ketones Trace Urine Blood Negative Urine Nitrate Negative Urine Bilirubin Negative Urine Urobilinogen Normal Ur Leukocyte Esterase Trace Urine WBC (Auto) 2 Urine RBC (Auto) 1 Ur Squamous Epith Cells < 1 Assessment & Plan (1) Weakness Status: Acute (2) Abdominal pain Status: Acute (3) Labile hypertension Status: Acute (4) Low back pain Status: Acute (5) Nausea Status: Acute (6) Seizure Status: Chronic - Assessment and Plan (Free Text) Plan: Feels better today Awaiting consultations from Dr. kimmie Montaño Continue aspirin Continue losartan Continue rosuvastatin Continue Lamictal GI and DVT prophylaxis Plavix Hemoglobin hematocrit 12.2 and 36.6 INR 1.1 Troponin x3- ProBNP 377 Influenza is negative seiure precation
--- NOTE | 2018-08-24 01:18 | CP.PCM.CON ---
History of Present Illness - History of Present Illness History of Present Illness: 82 year old female presents to the ED c/o sudden onset anxiety, dizziness and weakness while she was watching TV at home. Patient reports her symptoms are associated with nausea and vomit. Patient with PMHx of panic attacks and anxiety . Patient denies fever, chills, headache, visual changes, SOB, CP, palpitations, rash, numbness. Patient denies syncope, CP or CHF sx's Mildly active with ADLs Cardiac HX: negative for MO or CVA Medical Hx: Seizure disorder. HTN chronic stable, LIPIDS on statin, hypothyroidism Social Hx: non smoker Review of Systems - Review of Systems All systems: reviewed and no additional remarkable complaints except Past Patient History - Infectious Disease Hx of Infectious Diseases: None - Past Medical History & Family History Past Medical History?: Yes - Past Social History Smoking Status: Never Smoked - CARDIAC Hx Hypercholesterolemia: Yes Hx Hypertension: Yes - PULMONARY Hx Respiratory Disorders: No - NEUROLOGICAL Hx Seizures: Yes (2 MONTHS AGO) - HEENT Hx HEENT Problems: No - RENAL Hx Chronic Kidney Disease: No - ENDOCRINE/METABOLIC Hx Hypothyroidism: Yes - HEMATOLOGICAL/ONCOLOGICAL Hx Blood Disorders: No - INTEGUMENTARY Hx Dermatological Problems: No - MUSCULOSKELETAL/RHEUMATOLOGICAL Hx Arthritis: Yes (knee, back) Hx Osteoporosis: Yes - GASTROINTESTINAL Other/Comment: LUQ ABDOMINAL PAIN; , dizziness - GENITOURINARY/GYNECOLOGICAL Hx Genitourinary Disorders: No - PSYCHIATRIC Hx Anxiety: Yes Hx Substance Use: No - SURGICAL HISTORY Hx Surgeries: Yes Hx Musculoskeletal Surgery: Yes (2 BACK SURGERIES 30 YRS. AGO) - ANESTHESIA Hx Anesthesia: Yes Hx Anesthesia Reactions: No Hx Malignant Hyperthermia: No Meds Allergies/Adverse Reactions: Allergies Allergy/AdvReac Type Severity Reaction Status Date / Time Sulfa (Sulfonamide AdvReac Intermediate NAUSEA Verified 08/22/18 19:15 Antibiotics) - Medications Medications: Current Medications Aspirin (Aspirin) 325 mg PO DAILY [facility] Last Admin: 08/23/18 09:39 Dose: 325 mg Clopidogrel Bisulfate (Plavix) 75 mg PO DAILY [facility] Last Admin: 08/23/18 09:39 Dose: 75 mg Enoxaparin Sodium (Lovenox) 40 mg SC DAILY [facility] Last Admin: 08/23/18 09:39 Dose: 40 mg Lamotrigine (Lamictal) 200 mg PO BID [facility] Last Admin: 08/23/18 18:04 Dose: 200 mg Losartan Potassium (Cozaar) 50 mg PO [facility] Last Admin: 08/23/18 21:04 Dose: 50 mg Rosuvastatin Calcium (Crestor) 20 mg PO [facility] Last Admin: 08/23/18 21:04 Dose: 20 mg Physical Exam - Constitutional Appears: No Acute Distress - Head Exam Head Exam: ATRAUMATIC, NORMAL INSPECTION, NORMOCEPHALIC - Eye Exam Eye Exam: EOMI, Normal appearance. absent: Scleral icterus - ENT Exam ENT Exam: Mucous Membranes Moist, Normal Exam - Neck Exam Neck exam: Positive for: Normal Inspection - Respiratory Exam Respiratory Exam: Clear to Auscultation Bilateral, NORMAL BREATHING PATTERN - Cardiovascular Exam Cardiovascular Exam: REGULAR RHYTHM, +S1, +S2. absent: Systolic Murmur - GI/Abdominal Exam GI & Abdominal Exam: Normal Bowel Sounds, Soft. absent: Tenderness - Extremities Exam Extremities exam: Negative for: calf tenderness, pedal edema - Neurological Exam Neurological exam: Alert, Oriented x3 - Psychiatric Exam Psychiatric exam: Normal Affect, Normal Mood - Skin Skin Exam: Normal Color, Warm Results - Vital Signs Recent Vital Signs: Last Vital Signs Temp 97.4 F L 08/23/18 16:00 Pulse 80 08/23/18 23:25 Resp 20 08/23/18 16:00 BP 112/71 08/23/18 16:00 Pulse Ox 99 08/23/18 16:00 - Labs Result Diagrams: 08/22/18 19:35 08/22/18 19:35 Labs: Laboratory Results - last 24 hr 08/23/18 08/23/18 06:22 11:37 Total Creatine Kinase 47 46 CK-MB (Mass) 0.50 0.53 Troponin I < 0.0120 < 0.0120 - EKG Data EKG Interpreted by: Myself - Imaging and Cardiology Chest x-ray Status: Image reviewed by me Assessment & Plan - Assessment and Plan (Free Text) Assessment: Dizziness, weakness, lethargy > EKG: sinus bradycardia, no acute ischemic changes > CXR: No infiltrate or effusion > Labs: MO ruled out, NT-pro BNP not significantly elevated > Sugars: Mild increased Sx's are unlikely cardiac Normal auscultation No CAD sx's or CHF sx's HTN: uncontrolled Bradycardia: without other high risk features Avoid Beta-blockers monitor or check thyroid function cont losartan, statin > add norvasc for better Bp control > P > will sign off: no other cardiac testing required: outpatient f/u. - Date & Time Date: 08/23/18 Time: 09:30
[2018-08-24 07:39] LABS: BASO % 0.5 % (0.0-2.0); EOS % 0.2 % (0.0-4.0); HEMOGLOBIN 11.3 g/dL (11.0-16.0); LYMPH # 0.7 K/uL (1.0-4.3); LYMPH % 18.2 % (20.0-40.0); MEAN CELL VOLUME 92.7 fL (81.0-99.0); MEAN CORPUSCULAR HEMOGLOBIN 31.4 pg (27.0-31.0); MEAN CORPUSCULAR HGB CONC 33.9 g/dL (33.0-37.0); MEAN PLATELET VOLUME 6.9 fL (7.2-11.7); MONO # 0.4 K/uL (0.0-0.8); MONO % 10.6 % (0.0-10.0); NEUT # 2.6 K/uL (1.8-7.0); NEUT % 70.5 % (50.0-75.0); NRBC % 0.1 % (0.0-2.0); RBC 3.6 Mil/uL (3.80-5.20); RED CELL DISTRIBUTION WIDTH 13.3 % (11.5-14.5)
[2018-08-24 07:41] LABS: WHITE BLOOD COUNT 3.7 K/uL (4.8-10.8)
[2018-08-24 07:58] LABS: ALB/GLOB RATIO 1.6 (1.0-2.1); ALBUMIN 4.2 g/dL (3.5-5.0); ALT/SGPT < 6 U/L (9-52); AST/SGOT 42 U/L (14-36); BLOOD UREA NITROGEN 24 mg/dL (7-17); CALCIUM 9.9 mg/dl (8.6-10.4); GFR NON-AFRICAN AMERICAN 53
[2018-08-24] MEDS: Enoxaparin 40 mg Syringe SC SCH (09:34)
--- NOTE | 2018-08-24 12:33 | CP.PCM.PN ---
Subjective - Date & Time of Evaluation Date of Evaluation: 08/24/18 Time of Evaluation: 12:33 - Subjective Subjective: PATIENT SEEN AND EXAMINED AT THE BEDSIDE Objective - Vital Signs/Intake and Output Vital Signs (last 24 hours): Temp Pulse Resp BP Pulse Ox 98.4 F 81 18 128/67 98 08/24/18 08:30 08/24/18 08:30 08/24/18 08:30 08/24/18 08:30 08/24/18 12:00 - Medications Medications: Current Medications Aspirin (Aspirin) 325 mg PO DAILY [facility] Last Admin: 08/24/18 09:34 Dose: 325 mg Clopidogrel Bisulfate (Plavix) 75 mg PO DAILY [facility] Last Admin: 08/24/18 09:34 Dose: 75 mg Enoxaparin Sodium (Lovenox) 40 mg SC DAILY [facility] Last Admin: 08/24/18 09:34 Dose: 40 mg Lamotrigine (Lamictal) 200 mg PO BID [facility] Last Admin: 08/24/18 09:34 Dose: 200 mg Losartan Potassium (Cozaar) 50 mg PO HS [facility] Last Admin: 08/23/18 21:04 Dose: 50 mg Rosuvastatin Calcium (Crestor) 20 mg PO HS [facility] Last Admin: 08/23/18 21:04 Dose: 20 mg - Labs Labs: 08/24/18 07:08 08/24/18 07:08 PT 11.6 SECONDS (9.7-12.2) 08/22/18 19:35 INR 1.1 08/22/18 19:35 APTT 28 SECONDS (21-34) 08/22/18 19:35 Assessment and Plan - Assessment and Plan (Free Text) Assessment: FOLLOW UP WITH DR Wandy NAVA IN HIS OFFICE -----CALL FOR APPOINTMENT FOLLOW UP WITH DR MACDONALD IN HIS OFFICE ------CALL FOR APPOINTMENT CONTINUE HOME MEDICATION STOP TAKING METOPROLOL ACTIVITY TOLERATED CALL DR Wandy NAVA OR GO TO THE EMERGENCY ROOM IF SYMPTOM RETURN OR WORSENING
[2018-08-24 16:34] VITALS: RESP 20
--- NOTE | 2018-08-24 18:30 | CP.PCM.PN ---
Subjective - Date & Time of Evaluation Date of Evaluation: 08/24/18 Time of Evaluation: 15:30 - Subjective Subjective: sitting out of bed to [facility] family no nausea no vomiting no diarrhea denies sob no fever Objective - Vital Signs/Intake and Output Vital Signs (last 24 hours): Temp Pulse Resp BP Pulse Ox 97.8 F 88 20 114/73 100 08/24/18 16:00 08/24/18 16:00 08/24/18 16:00 08/24/18 16:00 08/24/18 16:00 - Medications Medications: Current Medications Aspirin (Aspirin) 325 mg PO DAILY [facility] Last Admin: 08/24/18 09:34 Dose: 325 mg Clopidogrel Bisulfate (Plavix) 75 mg PO DAILY [facility] Last Admin: 08/24/18 09:34 Dose: 75 mg Enoxaparin Sodium (Lovenox) 40 mg SC DAILY [facility] Last Admin: 08/24/18 09:34 Dose: 40 mg Lamotrigine (Lamictal) 200 mg PO BID [facility] Last Admin: 08/24/18 17:44 Dose: 200 mg Losartan Potassium (Cozaar) [address] [facility] Last Admin: 08/23/18 21:04 Dose: 50 mg Rosuvastatin Calcium (Crestor) [address] [facility] Last Admin: 08/23/18 21:04 Dose: 20 mg - Labs Labs: 08/24/18 07:08 08/24/18 07:08 PT 11.6 SECONDS (9.7-12.2) 08/22/18 19:35 INR 1.1 08/22/18 19:35 APTT 28 SECONDS (21-34) 08/22/18 19:35 - Constitutional Appears: Well - Head Exam Head Exam: ATRAUMATIC, NORMAL INSPECTION, NORMOCEPHALIC - Eye Exam Eye Exam: EOMI, Normal appearance, PERRL Pupil Exam: NORMAL ACCOMODATION, PERRL - ENT Exam ENT Exam: Mucous Membranes Moist, Normal Exam - Neck Exam Neck Exam: Full ROM, Normal Inspection. absent: Lymphadenopathy - Respiratory Exam Respiratory Exam: Decreased Breath Sounds - Cardiovascular Exam Cardiovascular Exam: REGULAR RHYTHM, +S1, +S2 - GI/Abdominal Exam GI & Abdominal Exam: Soft, Diminished Bowel Sounds - Rectal Exam Rectal Exam: Deferred Assessment and Plan (1) Weakness Status: Acute (2) Abdominal pain Status: Acute (3) Labile hypertension Status: Acute (4) Low back pain Status: Acute (5) Nausea Status: Acute (6) Seizure Status: Chronic - Assessment and Plan (Free Text) Plan: patient was examined today labs reviewed vitals reviewed medications reviewed aspirin cozaar crestor lamictal lovenox plavix
--- NOTE | 2018-08-24 20:46 | CARD ---
APPROVED REPORT Date of service: 08/22/2018 EKG Measurement Heart [id number] <Conclusion> Junctional rhythm Abnormal ECG
--- NOTE | 2018-08-25 07:12 | CP.PCM.CON ---
History of Present Illness - History of Present Illness History of Present Illness: BREAK THROUGH SEIZURES STABLE BACK TO HER BASELINE I WILL DO EEG NO ADJUSTMENT ON HER AED MEDICALLY STABLE THEND/C HOME AND FOLLOW UP OP Past Patient History - Infectious Disease Hx of Infectious Diseases: None - Past Medical History & Family History Past Medical History?: Yes - Past Social History Smoking Status: Never Smoked - CARDIAC Hx Cardiac Disorders: Yes Hx Hypercholesterolemia: Yes Hx Hypertension: Yes - PULMONARY Hx Respiratory Disorders: No - NEUROLOGICAL Hx Neurological Disorder: Yes Hx Seizures: Yes (2 MONTHS AGO) - HEENT Hx HEENT Problems: No - RENAL Hx Chronic Kidney Disease: No - ENDOCRINE/METABOLIC Hx Endocrine Disorders: Yes Hx Hypothyroidism: Yes - HEMATOLOGICAL/ONCOLOGICAL Hx Blood Disorders: No - INTEGUMENTARY Hx Dermatological Problems: No - MUSCULOSKELETAL/RHEUMATOLOGICAL Hx Musculoskeletal Disorders: Yes Hx Arthritis: Yes (knee, back) Hx Falls: Yes - GASTROINTESTINAL Hx Gastrointestinal Disorders: Yes Other/Comment: LUQ ABDOMINAL PAIN; , dizziness - GENITOURINARY/GYNECOLOGICAL Hx Genitourinary Disorders: No - PSYCHIATRIC Hx Psychophysiologic Disorder: Yes Hx Anxiety: Yes Hx Substance Use: No - SURGICAL HISTORY Hx Surgeries: Yes Hx Musculoskeletal Surgery: Yes (2 BACK SURGERIES 30 YRS. AGO) - ANESTHESIA Hx Anesthesia: Yes Hx Anesthesia Reactions: No Hx Malignant Hyperthermia: No Meds Home Medications: Home Medication List Medication Instructions Recorded Confirmed Type Famotidine [Pepcid] 40 mg PO DAILY 30 Days tab 08/24/18 Rx Allergies/Adverse Reactions: Allergies Allergy/AdvReac Type Severity Reaction Status Date / Time Sulfa (Sulfonamide AdvReac Intermediate NAUSEA Verified 08/22/18 19:15 Antibiotics) - Medications Medications: Current Medications Aspirin (Aspirin) 325 mg PO DAILY [facility] Last Admin: 08/24/18 09:34 Dose: 325 mg Clopidogrel Bisulfate (Plavix) 75 mg PO DAILY [facility] Last Admin: 08/24/18 09:34 Dose: 75 mg Enoxaparin Sodium (Lovenox) 40 mg SC DAILY [facility] Last Admin: 08/24/18 09:34 Dose: 40 mg Lamotrigine (Lamictal) 200 mg PO BID [facility] Last Admin: 08/24/18 17:44 Dose: 200 mg Losartan Potassium (Cozaar) 50 mg PO [facility] Last Admin: 08/24/18 21:10 Dose: Not Given Rosuvastatin Calcium (Crestor) 20 mg PO [facility] Last Admin: 08/24/18 21:10 Dose: Not Given Results - Vital Signs Recent Vital Signs: Last Vital Signs Temp 98.4 F 08/25/18 00:11 Pulse 87 08/25/18 06:00 Resp 20 08/25/18 00:11 BP 181/90 H 08/25/18 06:00 Pulse Ox 98 08/25/18 00:11 - Labs Result Diagrams: 08/24/18 07:08 08/24/18 07:08 Labs: Laboratory Results - last 24 hr 08/24/18 08/24/18 07:08 07:08 WBC 3.7 L RBC 3.60 L Hgb 11.3 Hct 33.4 L MCV 92.7 MCH 31.4 H MCHC 33.9 RDW 13.3 Plt Count 208 MPV 6.9 L Neut % (Auto) 70.5 Lymph % (Auto) 18.2 L [place] % (Auto) 10.6 H Eos % (Auto) 0.2 Baso % (Auto) 0.5 Neut # (Auto) 2.6 Lymph # (Auto) 0.7 L [place] # (Auto) 0.4 Eos # (Auto) 0.0 Baso # (Auto) 0.0 Sodium 132 Potassium 4.5 Chloride 93 L Carbon Dioxide 33 H Anion Gap 11 BUN 24 H Creatinine 1.0 Est GFR ( Amer) > 60 Est GFR (Non-Af Amer) 53 Random Glucose 101 D Calcium 9.9 Total Bilirubin 0.3 AST 42 H D ALT < 6 L D Alkaline Phosphatase 75 Total Protein 6.7 Albumin 4.2 Globulin 2.5 Albumin/Globulin Ratio 1.6
[2018-08-25 08:23] VITALS: O2SAT 100
--- NOTE | 2018-08-25 12:55 | CP.PCM.PN ---
Subjective - Date & Time of Evaluation Date of Evaluation: 08/25/18 Objective - Vital Signs/Intake and Output Vital Signs (last 24 hours): Temp Pulse Resp BP Pulse Ox 97.1 F L 80 20 158/79 H 100 08/25/18 08:22 08/25/18 08:22 08/25/18 08:22 08/25/18 08:22 08/25/18 08:22 Intake and Output: 08/25/18 08/25/18 06:59 18:59 Intake Total 240 Balance 240 - Medications Medications: Current Medications Amlodipine Besylate (Norvasc) 5 mg PO DAILY [facility] Aspirin (Aspirin) 325 mg PO DAILY [facility] Last Admin: 08/24/18 09:34 Dose: 325 mg Clopidogrel Bisulfate (Plavix) 75 mg PO DAILY [facility] Last Admin: 08/24/18 09:34 Dose: 75 mg Enoxaparin Sodium (Lovenox) 40 mg SC DAILY [facility] Last Admin: 08/24/18 09:34 Dose: 40 mg Lamotrigine (Lamictal) 200 mg PO BID [facility] Last Admin: 08/24/18 17:44 Dose: 200 mg Losartan Potassium (Cozaar) 50 mg PO [facility] Last Admin: 08/24/18 21:10 Dose: Not Given Rosuvastatin Calcium (Crestor) 20 mg PO [facility] Last Admin: 08/24/18 21:10 Dose: Not Given - Labs Labs: 08/24/18 07:08 08/24/18 07:08 PT 11.6 SECONDS (9.7-12.2) 08/22/18 19:35 INR 1.1 08/22/18 19:35 APTT 28 SECONDS (21-34) 08/22/18 19:35 - Constitutional Appears: Well - Head Exam Head Exam: ATRAUMATIC, NORMAL INSPECTION, NORMOCEPHALIC - Eye Exam Eye Exam: EOMI, Normal appearance, PERRL Pupil Exam: NORMAL ACCOMODATION, PERRL - ENT Exam ENT Exam: Mucous Membranes Moist, Normal Exam - Neck Exam Neck Exam: Full ROM, Normal Inspection. absent: Lymphadenopathy - Respiratory Exam Respiratory Exam: Decreased Breath Sounds - Cardiovascular Exam Cardiovascular Exam: REGULAR RHYTHM, +S1, +S2 - GI/Abdominal Exam GI & Abdominal Exam: Soft, Diminished Bowel Sounds - Rectal Exam Rectal Exam: Deferred Assessment and Plan (1) Weakness Status: Acute (2) Abdominal pain Status: Acute (3) Labile hypertension Status: Acute (4) Low back pain Status: Acute (5) Nausea Status: Acute (6) Seizure Status: Chronic - Assessment and Plan (Free Text) Plan: labs, medications and vitals reviewed
[2018-08-25] MEDS: Enoxaparin 40 mg Syringe SC SCH (13:01)
[2018-08-25 16:21] VITALS: BP 141/78; PULSE 86; TEMP 97.9
--- NOTE | 2018-08-25 22:51 | CON ---
DATE: 08/25/2018 NEUROLOGY INITIAL CONSULTATION ATTENDING PHYSICIAN: Josemanuel Gracia MD ROOM: 670, bed B. REASON FOR CONSULTATION: Possible seizures. CHIEF COMPLAINT: The patient was brought into [facility] with a history of change in mental status. From neurological point of view, I was called into evaluate her for further management. HISTORY OF PRESENT ILLNESS: Ms. 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 In between, she does have seizures which may be controlled with similar medication. She could not able to tolerate any other medication, being tried with almost all antiepileptic drugs. Her breakthrough seizures all related to her sleep deprivation and anxiety induced. Never been at her status and never been respiratory arrest related to her seizures. Lately she has been suffering from dementia related to her age as well. PAST MEDICAL HISTORY: Seizures, hypothyroidism, osteoporosis, dyslipidemia, anxiety disorder. PERSONAL HISTORY: Denies smoking or alcohol use. ALLERGIES: SULFA AND SOME ANTIBIOTICS. REVIEW OF SYSTEMS: 12-point review of systems being reviewed. From neuro, change in mental status. PHYSICAL EXAMINATION VITAL SIGNS: Blood pressure 181/90, mean artery pressure of 120, respiratory rate 18 and pulse rate 87, temperature 98.4. NECK: Supple. No carotid bruits. HEART: Sounds regular. CHEST: Fair air entry. EXTREMITIES: No edema in legs. MENTAL STATUS EXAMINATION: She is awake, alert, and oriented to person, place and time. Speech is clear. Naming, repetition, fluency, and comprehension all within normal. Her mentation is back to her baseline. No confusion. No disorientation. She could able to follow two to three step complex commands. CRANIAL NERVE EXAMINATION: Visual field intact. Pupils reactive to light. Extraocular movement normal. No nystagmus. No facial sensory deficit. No facial asymmetry. Hearing is normal. Tongue is midline. Good gag. MOTOR EXAMINATION: Outstretched hand with eyes closed, no drift noted. Power is symmetric on either side. Deep tendon reflexes biceps, brachialis, triceps 1+ both knees, 1+ both ankles, 1+ plantars are downgoing. SENSORY EXAMINATION: Grossly intact. No cortical sensory loss. COORDINATION: Finger-nose test is intact. Gait is deferred at this time. CONCLUSION: On reviewing her history from her as well as the medical records, she does have partial complex seizures, which she did not generalize at this time. At current examination, the patient is back to her baseline activities. Continue the present management. WORKUP: 1. EKG has sinus tachycardia. 2. The blood pressure, mean artery pressure is high. A proper anti hypertensive medication to bring her blood pressure to keep the mean artery pressure around 100. 3. Continue antiepileptic drugs (lamotrigine as the current dose). 4. Prior to discharge, I would like to have her EEG. Her blood workup been reviewed. If medically stable, the patient can be discharged and should have followup visit with me as outpatient. Jeremy Baird MD
== END 2018-08-25 17:28 | disposition home health service (06) | DRG 948 ==
LOC: C.ER 19:09 → C.9E 20:36 → C.6T 21:13 → OBSVTOIN 08-24 16:21
PROVIDERS: ADMIT Internal Medicine Nephrology; ATTEND Internal Medicine Nephrology
DX: R53.1 Weakness (principal); G40.209 Localization-related (focal) (partial) symptomatic epilepsy and epileptic syndromes with complex partial seizures, not intractable, without status epilepticus; R10.9 Unspecified abdominal pain; F41.0 Panic disorder [episodic paroxysmal anxiety]; I10 Essential (primary) hypertension; E03.9 Hypothyroidism, unspecified; R00.0 Tachycardia, unspecified; F03.90 Unspecified dementia, unspecified severity, without behavioral disturbance, psychotic disturbance, mood disturbance, and anxiety; M54.5 Low back pain; M81.0 Age-related osteoporosis without current pathological fracture; E78.5 Hyperlipidemia, unspecified; E78.00 Pure hypercholesterolemia, unspecified; Z72.820 Sleep deprivation